=== PATIENT | female | born 1985 | race Caucasian/White ===

== ENCOUNTER 2016-09-24 09:55 | Emergency (ER) | payer SELFPAY ==
[2016-09-24 10:22] VITALS: BP 116/78
[2016-09-24] MEDS ORDERED: HYDROcodone/ACETAMIN 5-325 MG* 1 TAB PO ONE (11:22)
--- NOTE | 2016-09-24 12:06 | RAD ---
INDICATION: Blood in sputum. Dyspnea. Pain under RIGHT breast relating into posterior RIGHT side. RIGHT lower rib pain. History of tobacco use. COMPARISON: January 20, 2012 TECHNIQUE: Dual energy PA and routine lateral views of the chest were obtained. REPORT: Small region of airspace consolidation involving the anterior segment of the RIGHT upper lobe approximating the minor fissure. Negative for volume loss. Negative for pleural effusion or pneumothorax. The heart, pulmonary vasculature, and mediastinal contours are unremarkable. No rib fracture visualized. IMPRESSION: RIGHT upper lobe pneumonia.
[2016-09-24] MEDS ORDERED: Levofloxacin TAB* 500 MG PO ONE (12:33)
[2016-09-24] MEDS ORDERED: Acetaminop/Codeine 30 MG TAB* 1 TAB (300 MG/30 MG) PO ONE (12:55)
[2016-09-24] MEDS ORDERED: Benzonatate CAP* 100 MG PO ONE (12:56)
--- NOTE | 2016-09-24 13:18 | UC ---
rob Starks Timothy, scribed for Esmer Silva DO on 09/24/16 at 1103 . Respiratory Complaint HPI - HPI Summary HPI Summary: Tess Camargo is a 30 yo female presenting to [facility] with respiratory illness for 3 days, with cough made worse by recumbent position, sore throat, and chills. She states her congestion is increasing with 10/10 sharp, stabbing pain on the right side with inspiration, radiating inwards, since last night causing SOB. Since yesterday, she has started coughing up marimar blood, 3x between last night and today. The day before yesterday she had ear pain, and presented to [place] urgent care where her URI Dx was given. She has also vomited twice last night as a result of excessive coughing. Her Hx includes Hep C, and she is a smoker. - History of Current Complaint Stated Complaint: SORE THROAT COUGH UP BLOOD PAIN WHE BREATHING Time Seen by Provider: 09/24/16 10:58 Hx Obtained From: Patient Hx Last Menstrual Period: 2 weeks Onset/Duration: Gradual Onset, Lasting Days, Still Present Timing: Constant Severity Initially: Moderate Severity Currently: Moderate Pain Intensity: 10 Pain Scale Used: 0-10 Numeric Character: Cough: Nonproductive Aggravating Factors: Deep Breaths, Recumbent Position Alleviating Factors: Upright Position Associated Signs And Symptoms: Positive: Dyspnea, Pleuritic Chest Pain, Hemoptysis, URI. Negative: Fever, Chills, Wheezing, Dizziness, Edema, Nasal Congestion, Hoarseness - Allergies/Home Medications Allergies/Adverse Reactions: Allergies Allergy/AdvReac Type Severity Reaction Status Date / Time Glyburide Allergy Hives Verified 09/24/16 10:12 Metformin Allergy Hives Verified 09/24/16 10:12 Metronidazole [From Flagyl] Allergy Hives Verified 09/24/16 10:12 Nitrofurantoin Allergy Hives Verified 09/24/16 10:12 [From Macrobid] Home Medications: Home Medications DULoxetine DR CAP* [Cymbalta CAP*] 1 tab PO DAILY 09/24/16 [History Confirmed ] Gabapentin CAP(*) [Neurontin 400 mg CAP(*)] 1 tab PO BID 09/24/16 [History Confirmed 09/24/16] Yaksxegpofjsc-Uvmqforoen-Pxbft [Nyquil Severe Cold/Flu 5-6.25-10-325 mg/15Ml] 09/24/16 [History] PMH/Surg Hx/FS Hx/Imm Hx Previously Healthy: Yes - Surgical History Surgical History: Yes Surgery Procedure, Year, and Place: Appe 2009. [place] 2007 - Family History Known Family History: Positive: Hypertension, Diabetes, Other - lung cancer - Social History Occupation: Unemployed Lives: With Family Alcohol Use: None Substance Use Type: None Smoking Status (MU): Light Every Day Tobacco Smoker Cessation Counseling: Patient Advised to Stop - Immunization History Most Recent Influenza Vaccination: doesn't get Review of Systems Constitutional: Chills Skin: Negative Eyes: Negative ENT: Sore Throat, Ear Ache Respiratory: Shortness Of Breath, Cough Cardiovascular: Chest Pain - with inspiration Gastrointestinal: Vomiting Genitourinary: Negative Motor: Negative Neurovascular: Negative Musculoskeletal: Negative Neurological: Negative Psychological: Negative All Other Systems Reviewed And Are Negative: Yes Physical Exam Triage Information Reviewed: Yes Appearance: Well-Appearing, Pain Distress - moderate, Obese Vital Signs: Initial Vital Signs Temp 99.1 F 09/24/16 10:13 Pulse 91 09/24/16 10:13 Resp 19 09/24/16 10:13 BP 116/78 09/24/16 10:13 Pulse Ox 100 09/24/16 10:13 Vital Signs Reviewed: Yes Eyes: Positive: Conjunctiva Clear. Negative: Conjunctiva Inflamed ENT: Positive: Hearing grossly normal. Negative: Muffled/hoarse voice Neck: Positive: Supple, Nontender Respiratory: Positive: Chest non-tender, No respiratory distress, No accessory muscle use, Other: - tendernewss in the lower right cage, ribs 7,8,9, & 10. Negative: Normal breath sounds - difficult to appreciate due to shallowness Cardiovascular: Positive: RRR, No Murmur, Other: Musculoskeletal Exam: Normal Neurological: Positive: Alert, Muscle Tone Normal Psychological Exam: Normal Psychological: Positive: Age Appropriate Behavior Skin Exam: Normal UC Diagnostic Evaluation - Laboratory O2 Sat by Pulse Oximetry: 100 - Radiology Xray Interpretation: Positive (See Comments) - IMPRESSION: RIGHT upper lobe pneumonia. Radiology Interpretation Completed By: Radiologist Re-Evaluation - Re-Evaluation First Eval Re-Evaluation Time: 12:18 Change: Improved Comment: Pt is feeling much improved. She was informed of XR results. Respiratory Course/Dx - Course Course Of Treatment: Tess Camargo is a 30 yo female presenting to [facility] coughing up blood with respiratory illness for the past 3 days. Her CXR showed right upper lobe pneumonia. She will be discharged appropriately. - Differential Dx/Diagnosis Differential Diagnosis/HQI/PQRI: Lower Resp Infection, Pneumothorax, Other - rib injury Provider Diagnoses: right upper lobe pneumonia, rib injury Discharge - Discharge Plan Condition: Stable Disposition: HOME Prescriptions: Albuterol HFA INHALER* [Ventolin HFA Inhaler*] 2 puff INH Q4H PRN #1 mdi PRN Reason: Sob/Wheezing Benzonatate CAP* [Tessalon CAP*] 100 mg PO TID #30 cap Levofloxacin TAB* [Levaquin TAB*] 500 mg PO DAILY #6 tab guaiFENesin/CODIEN 100MG-10MG* [Robitussin AC 100Mg-10Mg*] 5 - 10 ml PO Q4H PRN #100 udc MDD 10ml PRN Reason: Cough traMADol TAB* [Ultram*] 50 mg PO Q8H PRN #14 tab MDD 3 TABS PRN Reason: Pain Patient Education Materials: Pneumonia (ED), Rib Contusion (ED) Referrals: No Primary Care Phys,NOPCP [Primary Care Provider] - [facility] [Outside] Additional Instructions: INHALED BRONCHODILATORS: You have received a prescription for an inhaled bronchodilator -- a medication which stimulates the airways in the lung to dilate. This improves the flow of air in asthma, bronchitis, and emphysema. These medicines have some similarity to adrenaline, and can cause similar side effects: shakiness, racing heart, and a sense of nervousness. These side effects decrease with time. Contact your doctor if these side effects are severe. Do not over-use the medicine. Too-frequent use of the inhaler may make it ineffective. Call your doctor if the inhaler is not controlling your symptoms at the prescribed doses. COUGH-SUPPRESSANT & EXPECTORANT MEDICATION:DO NOT TAKE AT THE SAME TIME THE ULTRAM You are to use a cough medication as needed for relief of symptoms. This medicine is a combination of an expectorant (to make the mucous thinner and more easily "coughed up") and a cough suppressant (to reduce the frequency of coughing). The cough-suppressant medicine is related to narcotics. You may experience mild nausea and sleepiness. Some patients who are very sensitive to narcotics may have stomach pain from this medicine. Taking the medicine with food reduces these side effects. Do not drive or work with machinery until you know how this medicine affects you. The expectorant should have no side effects. Iodine-containing expectorants (such as organidin) should not be taken by persons with active thyroid disease unless approved by your doctor. Call the doctor if you develop shortness of breath, hives, rash, itching, lightheadedness, or severe nausea and vomiting. TESSALON PERLES: You have received a prescription for Tessalon Perles (benzonatate). This is a non-narcotic medicine for relief of cough. It usually works in about 15- 20 minutes and lasts around four hours. Tessalon Perles should be swallowed. They should not be chewed or dissolved in the mouth (this can produce temporary numbing of the mouth and choking can occur). If you develop any adverse effects such as wheezing, shortness of breath, hives, rash, itching, or lightheadedness, please return at once. Levofloxacin: You've been given an antibiotic of the quinalone family, levofloxacin ( Levaquin). This medicine is not related to the penicillins, sulfas, cephalosporins, or tetracyclines. It is often given to patients who are allergic to these drugs. It has been chosen for you either because other drugs are not appropriate, or because of the nature of your problem. Levofloxacin should not be taken with antacids, as these can decrease its effectiveness. It can be taken without regard to meals, but you should avoid taking dairy products (milk, cheese, yogurt) within two hours of the levofloxacin. LEVOFLOXACIN SHOULD NOT BE TAKEN BY CHILDREN, NURSING WOMEN, OR WOMEN. Although levofloxacin is usually well-tolerated, common side effects can include nausea and diarrhea. Contact your doctor if you experience any unusual symptoms while on this medication, such as joint pain or swelling, shortness of breath, wheezing, faintness, or hives. Please follow up with a primary care physician regarding your pneumonia and visit to urgent care today. Return to urgent care or the emergency department with any new or recurring symptoms. ANY TIME YOU TAKE AN ANTIBIOTIC, IT IS IMPORTANT TO REPLENISH THE BODY'S BALANCE OF "GOOD" BACTERIA BY EATING HIGH QUALITY CULTURED FOOD SUCH YOGURT, SAURKRAUT OR APPLE CHI AND/OR TAKING A PROBIOTIC SUPPLEMENT. ULTRAM (tramadol hydrochloride):FOR THE RIB PAIN. DO NOT TAKE TOGETHER WITH THE ROBITUSSIN WITH CODEINE. Ultram is an excellent drug for pain relief. It is not a narcotic, but it works in a similar way. Ultram can take up to two hours for full effect. Although not addicting, Ultram is best avoided in patients with a history of drug abuse. Ultram should not be used with alcohol, sleeping pills, or narcotics. If you're prone to seizures, Ultram can make you more likely to have a seizure. Ultram can be hazardous when combined with MAO-inhibitor antidepressants (such as Nardil or Parnate). Be sure your doctor is aware of all medicines you are taking. Persons with severe liver or kidney disease should increase the time between doses of Ultram. Discuss this with your doctor if you're uncertain. Side effects of Ultram can include dizziness, nausea, constipation, sleepiness, and itching. (These side effects are also seen with narcotic pain medicines.) Please call your doctor if you have other disturbing effects. This medication can increase your risk of serotonin syndrome when taken in combination with your antidepressants. This, however, is a rare side effect and these medicines are often prescribed together. That said, if you experience any agitation, increased reflexes, tremors, sweating, dilated pupils, diarrhea, or increased body temperature, you should stop this medication and be evaluated by a healthcare provider right away. FOLLOW-UP CARE: You should establish with a private physician for follow-up care in 2 days. If you are unable to get a timely appointment, or if you are worsening, call us or return for re-evaluation. An additional resource available to assist in finding the appropriate physician for your health care needs is the [facility]ician Referral Center. You may contact them by calling [phone]. Follow up in 2 days for re-evaluation. This follow up visit is important, we want to know that you are improving. If you can not get in with your PCP, return here for re-evaluation. The documentation as recorded by the rob rocha Timothy accurately reflects the service I personally performed and the decisions made by me, Esmer Silva DO.
[2016-09-24] MEDS ORDERED: Acetaminop/Codeine 30 MG TAB* 1 TAB (300 MG/30 MG) ONE (13:37)
== END 2016-09-24 13:10 | disposition home or self-care (01) ==
LOC: MERGE 09:55 → UCEAST 09:55
DX: J18.9 Pneumonia, unspecified organism (principal); S29.9XXA Unspecified injury of thorax, initial encounter; X50.3XXA Overexertion from repetitive movements, initial encounter; Y93.9 Activity, unspecified; Y92.9 Unspecified place or not applicable; R07.81 Pleurodynia; R04.2 Hemoptysis; Z90.49 Acquired absence of other specified parts of digestive tract; Z88.1 Allergy status to other antibiotic agents; Z88.8 Allergy status to other drugs, medicaments and biological substances; F17.210 Nicotine dependence, cigarettes, uncomplicated
CPT/HCPCS: 71020; 99203; A9270-GY; G0463

== ENCOUNTER 2016-09-25 20:30 | Emergency (ER) | payer SELFPAY ==
[2016-09-25] MEDS ORDERED: Albuterol HFA INHALER* 8 gm MDI INH ONE (21:11)
[2016-09-25] MEDS ORDERED: Clarithromycin TAB* 500 MG PO ONE (21:11)
[2016-09-25] MEDS ORDERED: guaiFENesin/CODIEN 100MG-10MG* 5 ML UDC PO ONE (21:17)
[2016-09-25] MEDS ORDERED: traMADol TAB* 50 MG PO ONE (22:00)
[2016-09-25 22:42] VITALS: BP 135/61
--- NOTE | 2016-09-27 00:40 | ED ---
Douglas Starks Matthew, scribed for Jerson Rizo MD on 09/25/16 at 2143 . Respiratory - HPI Summary HPI Summary: A 30 y/o female presents to the ED with SOB since 4 days ago. The patient was seen yesterday at urgent care and Dx with pneumonia and bruised ribs. At that time, she was prescribed Abx. However, she was unable to fill the medications, because she couldn't no afford them. The patient states that she continues to have pain rated 8/10 in severity and hemoptysis. She will be getting insurance this week. Associated symptoms include cough, sore throat, and chills. She's also having right sided rib pain. - History of Current Complaint Stated Complaint: SOB Hx Obtained From: Patient Onset/Duration: Gradual Onset, Lasting Days, Still Present Timing: Constant Initial Severity: Moderate Current Severity: Moderate Pain Intensity: 8 Character: Cough (Productive) Associated Signs and Symptoms: SOB, Chills, Hemoptysis - Allergy/Home Medications Allergies/Adverse Reactions: Allergies Allergy/AdvReac Type Severity Reaction Status Date / Time Nitrofurantoin Allergy Severe Tingling Verified 03/03/16 17:02 [From Macrobid] Metronidazole [From Flagyl] Allergy Intermediate Tingling Verified 03/03/16 17: 02 Glyburide Allergy Hives Verified 03/03/16 17:02 Metformin Allergy Hives/Diff. Verified 03/03/16 17:02 Breathing/I tching PMH/Surg Hx/FS Hx/Imm Hx Endocrine/Hematology History: Reports: Hx Diabetes - gestational diabetes Cardiovascular History: Denies: Hx Hypertension Respiratory History: Denies: Hx Asthma - Surgical History Surgery Procedure, Year, and Place: appy. azar. right hand sx for cellulitis Infectious Disease History: Yes Infectious Disease History: Denies: Hx Clostridium Difficile, Hx Hepatitis, Hx Human Immunodeficiency Virus (HIV), Hx of Known/Suspected MRSA, Hx Shingles, Hx Tuberculosis, Hx Known/ Suspected VRE, Hx Known/Suspected VRSA, History Other Infectious Disease, Traveled Outside the [place] in Last 30 Days - Family History Known Family History: Positive: Cardiac Disease, Hypertension, Diabetes, Other - lung cancer Negative: Respiratory Disease - Social History Alcohol Use: Occasionally Substance Use Type: Reports: None, Heroin, Other Substance Use Comment - Amount & Last Used: injected heroin & meth APPROX 1 mo. ago Smoking Status (MU): Never Smoked Tobacco Review of Systems Constitutional: Negative Eyes: Negative Positive: Sore Throat Cardiovascular: Negative Positive: Shortness Of Breath, Cough, Other - Hemoptysis Gastrointestinal: Negative Genitourinary: Negative Positive: Myalgia - right sided rib pain Skin: Negative Neurological: Negative Psychological: Normal All Other Systems Reviewed And Are Negative: Yes Physical Exam Triage Information Reviewed: Yes Vital Signs On Initial Exam: Initial Vitals Temp Pulse Resp BP Pulse Ox 99.7 F 95 20 140/70 97 09/25/16 21:03 09/25/16 21:03 09/25/16 21:03 09/25/16 21:03 09/25/16 21:03 Vital Signs Reviewed: Yes Appearance: Positive: Well-Appearing, No Pain Distress, Obese Skin: Positive: Warm, Skin Color Reflects Adequate Perfusion, Dry Eyes: Positive: EOMI, NOHEMI ENT: Positive: Normal ENT inspection Neck: Positive: Supple, Nontender Respiratory/Lung Sounds: Positive: Clear to Auscultation, Breath Sounds Present. Negative: Wheezes Cardiovascular: Positive: RRR Abdomen Description: Positive: Nontender, Soft Bowel Sounds: Positive: Present Musculoskeletal: Positive: Normal, Strength/ROM Intact Neurological: Positive: Normal, Sensory/Motor Intact, Alert, Oriented to Person Place, Time Psychiatric: Positive: Normal, Affect/Mood Appropriate Diagnostics - Vital Signs Vital Signs Temp Pulse Resp BP Pulse Ox 09/25/16 21:03 99.7 F 95 20 140/70 97 - Laboratory Lab Statement: Any lab studies that have been ordered have been reviewed, and results considered in the medical decision making process. Disposition - Course Course Of Treatment: Ms. Orly Camargo was unable to fill her prescriptions today as she has no money or insurance. I switched her antibiotics to a Z-pck and was then able to cover all of her previously prescribed medication except tessalon with [facility]. - Diagnoses Provider Diagnoses: Medication management Discharge - Discharge Plan Condition: Good Disposition: HOME Prescriptions: Azithromyxin CHAN (NF) [Z-Chan (Zithromax) 250 mg tabs #6] 2 tab PO .TODAY, THEN 1 DAILY #6 tab guaiFENesin/CODIEN 100MG-10MG* [Robitussin AC 100Mg-10Mg*] 5 ml PO Q4H PRN #100 udc MDD 25 PRN Reason: Cough traMADol TAB* [Ultram*] 50 mg PO Q8H PRN #14 tab MDD 3 PRN Reason: Cough Patient Education Materials: Pneumonia (ED) Referrals: [facility] [place] [facility] [Outside] - 2 Days No Primary Care Phys,NOPCP [Primary Care Provider] - Additional Instructions: Please follow-up with a primary care physician in 2 days. The documentation as recorded by the Douglas rocha Matthew accurately reflects the service I personally performed and the decisions made by me, Jerson Rizo MD.
== END 2016-09-25 22:42 | disposition home or self-care (01) ==
LOC: ED 20:30
DX: J18.9 Pneumonia, unspecified organism (principal); R07.81 Pleurodynia
CPT/HCPCS: 99283; A9270-GY

== ENCOUNTER 2017-07-17 11:17 | Emergency (ER) | payer OTHER ==
[2017-07-17] MEDS ORDERED: NS 0.9% 1000 ML* 1,000 ML IV ONE (11:59)
[2017-07-17 13:12] LABS: Hematocrit 33 % (35-47); Hemoglobin 11.6 g/dl (12.0-16.0); Mean Corpuscular HGB Conc 35 g/dl (31-36); Mean Corpuscular Hemoglobin 31 pg (27-31); Mean Corpuscular Volume 89 fL (80-97); Mean Platelet Volume 8 um3 (7.4-10.4); Red Blood Count 3.74 10^6/ul (4.0-5.4); Red Cell Distribution Width 14 % (10.5-15); White Blood Count 6.9 10^3/ul (3.5-10.8)
[2017-07-17 13:29] LABS: Urine Bacteria Absent (Absent); Urine Bilirubin Negative (Negative); Urine Glucose Negative (Negative); Urine Nitrite Negative (Negative)
[2017-07-17 13:29] LABS: Albumin 3.6 g/dL (3.2-5.2); BUN/Creatinine Ratio 15.6 (8-20); C Reactive Protein 27.88 mg/L (< 5.00); Calcium 9.3 mg/dL (8.6-10.3); EGFR African American 140.1 (>60); Globulin 3.1 g/dL (2-4); Potassium 3.4 mmol/L (3.5-5.0); Total Bilirubin 0.5 mg/dL (0.2-1.0); Total Protein 6.7 g/dL (6.4-8.9)
--- NOTE | 2017-07-17 14:21 | RAD ---
Indication: Abdominal pain. Real-time sonography of the was performed. There is a single intrauterine gestation in variable presentation. There is a fundal placenta without evidence of placenta previa. heart activity is noted at 160 bpm. Amniotic fluid is within normal limits. The cervix is unremarkable. The BPD measures 2.4 cm corresponding to gestational age of 14 weeks 1 day. Head circumference measures 9.4 cm corresponding to gestational age of 14 weeks 3 days. Abdominal circumference measures 8.4 cm corresponding to gestational age of 40 weeks 6 days. Femur length measures 1.8 cm corresponding to gestational age of 15 weeks 2 days. Estimated gestational age is 14 weeks 5 days. Estimated date of delivery is January 10, 2018. IMPRESSION: Single intrauterine gestation with a gestational age of 14 weeks 5 days. This is determined by today's initial ultrasound. Estimated date of delivery is January 10, 2018. heart activity is noted. Amniotic fluid is within normal limits.
--- NOTE | 2017-07-17 14:55 | ED ---
Gelacio Starks Gabriel scribed for Temi Card MD on 07/17/17 at 1233 . Complex/Multi-Sys Presentation - HPI Summary HPI Summary: This patient is a 31 year old F currently 14 weeks with a G/P/A history of . presenting to [facility] accompanied by boyfriend with a chief complaint of hematemesis with dark blood since 4 days prior. She has only had blood in her vomit twice and has been vomiting 15 times a day. The patient rates the pain 9/10 in severity. Symptoms aggravated by PO intake. Symptoms alleviated by nothing. Patient reports nausea, CP beginning last night, and ABD pain. Patient denies diarrhea, dysuria, and melena. Pt states she is unable to drink water due to nausea. Patient believes the nausea and vomiting is due to recent use of Subutex, oral tablets. - History Of Current Complaint Chief Complaint: EDNauseaVomitDiarrh Time Seen by Provider: 07/17/17 11:50 Hx Obtained From: Patient Onset/Duration: Lasting Days - 4, Still Present Timing: Constant Aggravating Factor(s): PO intake Alleviating Factor(s): nothing Associated Signs And Symptoms: Positive: Other - nausea, CP beginning last night , and ABD pain.. Negative: Diarrhea, Dysuria, Melena - Allergies/Home Medications Allergies/Adverse Reactions: Allergies Allergy/AdvReac Type Severity Reaction Status Date / Time Nitrofurantoin Allergy Severe Tingling Verified 03/03/16 17:02 [From Macrobid] Metronidazole [From Flagyl] Allergy Intermediate Tingling Verified 03/03/16 17: 02 Glyburide Allergy Hives Verified 03/03/16 17:02 Metformin Allergy Hives/Diff. Verified 03/03/16 17:02 Breathing/I tching PMH/Surg Hx/FS Hx/Imm Hx Previously Healthy: No Endocrine/Hematology History: Reports: Hx Diabetes - gestational diabetes Cardiovascular History: Denies: Hx Hypertension Respiratory History: Denies: Hx Asthma - Surgical History Surgery Procedure, Year, and Place: app[facility]. [facility]. right hand sx for cellulitis Infectious Disease History: No Infectious Disease History: Denies: Hx Clostridium Difficile, Hx Hepatitis, Hx Human Immunodeficiency Virus (HIV), Hx of Known/Suspected MRSA, Hx Shingles, Hx Tuberculosis, Hx Known/ Suspected VRE, Hx Known/Suspected VRSA, History Other Infectious Disease, Traveled Outside the [place] in Last 30 Days - Family History Known Family History: Positive: Cardiac Disease, Hypertension, Diabetes, Other - lung cancer Negative: Respiratory Disease - Social History Alcohol Use: None Hx Substance Use: Yes Substance Use Type: Reports: Heroin, Prescribed Substance Use Comment - Amount & Last Used: On subutex Smoking Status (MU): Never Smoked Tobacco Review of Systems Positive: Chest Pain Gastrointestinal: Negative - melena Positive: Abdominal Pain, Vomiting - with blood, Nausea. Negative: Diarrhea Negative: dysuria All Other Systems Reviewed And Are Negative: Yes Physical Exam - Summary Physical Exam Summary: General: Well appearing, no pain distress Skin: Warm, Skin Color Reflects Adequate Perfusion, Dry Eyes: EOMI, NOHEMI ENT: Pharynx normal, TMs normal Neck: Supple, nontender Respiratory: CTA, breath sounds present, no rhonchi, no wheezes, no rales Cardiovascular: RRR, no rub, no gallop, murmur present Abdomen: Soft, nontender, Non-distended, no guarding, no rebound Bowel: Present Musculoskeletal: KRISTEN, No edema Neuro: Sensory/motor intact, A&Ox3, CN intact 2-12 Psych: Affect/mood appropriate Triage Information Reviewed: Yes Vital Signs On Initial Exam: Initial Vitals Temp Pulse Resp BP Pulse Ox 97.7 F 88 17 120/74 98 07/17/17 11:36 07/17/17 11:36 07/17/17 11:36 07/17/17 11:36 07/17/17 11:36 Vital Signs Reviewed: Yes - [place] Coma Scale Coma Scale Total: 15 Diagnostics - Vital Signs Vital Signs Temp Pulse Resp BP Pulse Ox 07/17/17 11:36 97.7 F 88 17 120/74 98 - Laboratory Lab Results: Lab Results 07/17/17 07/17/17 07/17/17 Range/Units 12:50 13:00 13:00 WBC 6.9 (3.5-10.8) 10^3/ul RBC 3.74 L (4.0-5.4) 10^6/ul Hgb 11.6 L (12.0-16.0) g/dl Hct 33 L (35-47) % MCV 89 (80-97) fL MCH 31 (27-31) pg MCHC 35 (31-36) g/dl RDW 14 (10.5-15) % Plt Count 271 (150-450) 10^3/ul MPV 8 (7.4-10.4) um3 Neut % (Auto) 54.6 (38-83) % Lymph % (Auto) 33.8 (25-47) % [place] % (Auto) 9.9 H (1-9) % Eos % (Auto) 0.9 (0-6) % Baso % (Auto) 0.8 (0-2) % Absolute Neuts (auto) 3.8 (1.5-7.7) 10^3/ul Absolute Lymphs (auto) 2.3 (1.0-4.8) 10^3/ul Absolute Monos (auto) 0.7 (0-0.8) 10^3/ul Absolute Eos (auto) 0.1 (0-0.6) 10^3/ul Absolute Basos (auto) 0.1 (0-0.2) 10^3/ul Absolute Nucleated RBC 0 10^3/ul Nucleated RBC % 0 Sodium 136 (133-145) mmol/L Potassium 3.4 L (3.5-5.0) mmol/L Chloride 103 (101-111) mmol/L Carbon Dioxide 26 (22-32) mmol/L Anion Gap 7 (2-11) mmol/L BUN 10 (6-24) mg/dL Creatinine 0.64 (0.51-0.95) mg/dL Est GFR ( Amer) 140.1 (>60) Est GFR (Non-Af Amer) 109.0 (>60) BUN/Creatinine Ratio 15.6 (8-20) Glucose 99 (70-100) mg/dL Lactic Acid (0.5-2.0) mmol/L Calcium 9.3 (8.6-10.3) mg/dL Total Bilirubin 0.50 (0.2-1.0) mg/dL AST 16 (13-39) U/L ALT 20 (7-52) U/L Alkaline Phosphatase 34 (34-104) U/L C-Reactive Protein 27.88 H (< 5.00) mg/L Total Protein 6.7 (6.4-8.9) g/dL Albumin 3.6 (3.2-5.2) g/dL Globulin 3.1 (2-4) g/dL Albumin/Globulin Ratio 1.2 (1-3) Lipase 15 (11.0-82.0) U/L Urine Color [place] Urine Appearance Cloudy Urine pH 5.0 (5-9) Ur Specific [place] 1.032 H (1.010-1.030) Urine Protein 1+(30 mg/dl) H (Negative) Urine Ketones Trace H (Negative) Urine Blood Negative (Negative) Urine Nitrate Negative (Negative) Urine Bilirubin Negative (Negative) Urine Urobilinogen Negative (Negative) Ur Leukocyte Esterase Negative (Negative) Urine WBC (Auto) Trace(0-5/hpf) (Absent) Urine RBC (Auto) 3+(>10/hpf) H (Absent) Ur Squamous Epith Cells Present H (Absent) Urine Bacteria Absent (Absent) Urine Glucose Negative (Negative) 07/17/17 Range/Units 13:00 WBC (3.5-10.8) 10^3/ul RBC (4.0-5.4) 10^6/ul Hgb (12.0-16.0) g/dl Hct (35-47) % MCV (80-97) fL MCH (27-31) pg MCHC (31-36) g/dl RDW (10.5-15) % Plt Count (150-450) 10^3/ul MPV (7.4-10.4) um3 Neut % (Auto) (38-83) % Lymph % (Auto) (25-47) % [place] % (Auto) (1-9) % Eos % (Auto) (0-6) % Baso % (Auto) (0-2) % Absolute Neuts (auto) (1.5-7.7) 10^3/ul Absolute Lymphs (auto) (1.0-4.8) 10^3/ul Absolute Monos (auto) (0-0.8) 10^3/ul Absolute Eos (auto) (0-0.6) 10^3/ul Absolute Basos (auto) (0-0.2) 10^3/ul Absolute Nucleated RBC 10^3/ul Nucleated RBC % Sodium (133-145) mmol/L Potassium (3.5-5.0) mmol/L Chloride (101-111) mmol/L Carbon Dioxide (22-32) mmol/L Anion Gap (2-11) mmol/L BUN (6-24) mg/dL Creatinine (0.51-0.95) mg/dL Est GFR ( Amer) (>60) Est GFR (Non-Af Amer) (>60) BUN/Creatinine Ratio (8-20) Glucose (70-100) mg/dL Lactic Acid 1.1 (0.5-2.0) mmol/L Calcium (8.6-10.3) mg/dL Total Bilirubin (0.2-1.0) mg/dL AST (13-39) U/L ALT (7-52) U/L Alkaline Phosphatase (34-104) U/L C-Reactive Protein (< 5.00) mg/L Total Protein (6.4-8.9) g/dL Albumin (3.2-5.2) g/dL Globulin (2-4) g/dL Albumin/Globulin Ratio (1-3) Lipase (11.0-82.0) U/L Urine Color Urine Appearance Urine pH (5-9) Ur Specific [place] (1.010-1.030) Urine Protein (Negative) Urine Ketones (Negative) Urine Blood (Negative) Urine Nitrate (Negative) Urine Bilirubin (Negative) Urine Urobilinogen (Negative) Ur Leukocyte Esterase (Negative) Urine WBC (Auto) (Absent) Urine RBC (Auto) (Absent) Ur Squamous Epith Cells (Absent) Urine Bacteria (Absent) Urine Glucose (Negative) Result Diagrams: 07/17/17 13:00 07/17/17 13:00 Lab Statement: Any lab studies that have been ordered have been reviewed, and results considered in the medical decision making process. - EKG 1202 Cardiac Rate: NL EKG Rhythm: Sinus Rhythm - NSR at 77 BPM EKG Interpretation: nonspecific T wave changes EKG Comparison: Other - slight T wave flattening in comparison to EKG from 2015 - Additional Comments Diagnostic Additional Comments: US reveals, per radiologist, Single intrauterine gestation with a gestational age of 14 weeks 5 days. This is determined by today's initial ultrasound. Estimated date of delivery is January 10, 2018. heart activity is noted. Amniotic fluid is within normal limits. ED physician has reviewed this radiology report and agrees. Complex Multi-Symp Course/Dx Course Of Treatment: 31 yo female on subutex for 3 days that she isn't tolerating orally so she is injecting it. talked Isa at [address] and am changing her from 16 mg subutex to 10mcg patch pt has a known murmer and I described concern over her injection use because of the murmer and increased risk of endocarditis. Pt was unaware of this risk but did have a friend recently of endocarditis and now feels that injection is not an option. she does have some slower suprapubic discomfort but exam is very benign u/s shows a viable fetus - Diagnoses Provider Diagnoses: Hyperemesis arising during Discharge - Discharge Plan Condition: Stable Disposition: HOME Prescriptions: Buprenorphine 10 MCG PATCH(NF) [Butrans 10 MCG PATCH(NF)] 10 mcg TRANSDERM Q7D # 1 patch MDD 1 Ondansetron ODT TAB* [Zofran 4 MG Odt TAB*] 4 mg PO Q6H PRN #14 tab.odt PRN Reason: Nausea Referrals: No Primary Care Phys,NOPCP [Primary Care Provider] - The documentation as recorded by the Gelacio rocha Gabriel accurately reflects the service I personally performed and the decisions made by me, Temi Card MD.
[2017-07-17] MEDS ORDERED: Buprenorphine 10 MCG PATCH(NF) 10 MCG/HR PATCH (10 MG TOTAL) TRANSDERM SCH (15:00)
[2017-07-17] MEDS ORDERED: Ondansetron ODT TAB* 4 MG PO ONE (16:20)
[2017-07-17] MEDS ORDERED: Ondansetron ODT TAB* 4 MG ONE (16:23)
[2017-07-17 16:43] VITALS: BP 145/76
== END 2017-07-17 16:59 | disposition home or self-care (01) ==
LOC: ED 11:17
DX: O21.0 Mild hyperemesis gravidarum (principal); R07.9 Chest pain, unspecified; R11.2 Nausea with vomiting, unspecified; Z3A.14 14 weeks gestation of pregnancy
CPT/HCPCS: 36415; 76805; 80053; 81003; 81015; 83605; 83690; 85025; 86140; 87040; 93005; 99283; A9270-GY

== ENCOUNTER 2017-07-25 17:02 | Emergency (ER) | payer OTHER ==
[2017-07-25] MEDS ORDERED: NS 0.9% 1000 ML* 1,000 ML IV ONE (18:23)
[2017-07-25 18:47] LABS: Hematocrit 31 % (35-47); Hemoglobin 10.9 g/dl (12.0-16.0); Mean Corpuscular HGB Conc 35 g/dl (31-36); Mean Corpuscular Hemoglobin 31 pg (27-31); Mean Corpuscular Volume 89 fL (80-97); Mean Platelet Volume 8 um3 (7.4-10.4); Red Blood Count 3.52 10^6/ul (4.0-5.4); Red Cell Distribution Width 13 % (10.5-15); White Blood Count 6.5 10^3/ul (3.5-10.8)
[2017-07-25 19:02] LABS: Albumin 3.4 g/dL (3.2-5.2); BUN/Creatinine Ratio 12.5 (8-20); Calcium 9.3 mg/dL (8.6-10.3); EGFR African American 163.5 (>60); EGFR Non-African American 127.1 (>60); Potassium 3.6 mmol/L (3.5-5.0); Total Bilirubin 0.3 mg/dL (0.2-1.0); Total Protein 6.4 g/dL (6.4-8.9)
--- NOTE | 2017-07-25 19:59 | RAD ---
INDICATION: with recurrent pain. Normal sonogram July 15, 2017. COMPARISON: Sonogram July 17, 2017 TECHNIQUE: Real-time sector scans were performed for the purposes of evaluation. This is a limited examination. A anatomic survey was not performed due to the early age of the gestation. FINDINGS: There is a single intrauterine gestation in breech presentation. The placenta is posterior in location. There is no evidence of placenta previa or abruption. cardiac activity is documented at 167 beats per minute. There is movement. The amniotic fluid index is normal. The cervix is closed measuring 3.8 cm. A anatomic survey was not performed or requested. This can be performed at closer to 18 weeks The estimated gestational age based on biparietal diameter, head circumference, abdominal circumference, and femur length corresponds to 15 weeks 0 days, 15 weeks 0 days, 15 weeks 1 day, 15 weeks 1 day. The composite age is 15 weeks 1 day. There is normal growth. Based on the ultrasound the estimated due date is January 15, 2018 Both ovaries are identified. There are no sonographic abnormalities IMPRESSION: VIABLE INTRAUTERINE GESTATION AT 15 WEEKS 1 DAY. NO SONOGRAPHIC ABNORMALITIES ARE DETECTED.
[2017-07-25] MEDS ORDERED: RHO D Immune Globulin (HUMAN)* 300 MCG = 1,500 I.U. INJ IM ONE (20:00)
[2017-07-25 21:08] LABS: Urine Bilirubin Negative (Negative); Urine Glucose Negative (Negative); Urine Nitrite Negative (Negative)
[2017-07-25 21:13] VITALS: BP 125/58
== END 2017-07-25 21:12 | disposition home or self-care (01) ==
LOC: ED 17:02
DX: O36.62X0 Maternal care for excessive fetal growth, second trimester, not applicable or unspecified (principal); Z3A.14 14 weeks gestation of pregnancy
CPT/HCPCS: 36415; 76805; 80053; 81003; 84702; 85025; 85610; 85730; 86850; 86900; 86901; 96372; 99282; J2790

== ENCOUNTER 2017-08-15 03:04 | Emergency (ER) | payer OTHER ==
[2017-08-15 04:15] LABS: ABS Basophils 0 10^3/ul (0-0.2); ABS Eosinophils 0.1 10^3/ul (0-0.6); ABS Lymphocytes 2.4 10^3/ul (1.0-4.8); ABS Monocytes 0.5 10^3/ul (0-0.8); ABS Neutrophils 5.8 10^3/ul (1.5-7.7); ABS Nucleated RBC 0 10^3/ul; Eosinophil % 0.8 % (0-6); Hematocrit 30 % (35-47); Hemoglobin 10.8 g/dl (12.0-16.0); Lymphocyte % 27.6 % (25-47); Mean Corpuscular HGB Conc 36 g/dl (31-36); Mean Corpuscular Hemoglobin 31 pg (27-31); Mean Corpuscular Volume 87 fL (80-97); Mean Platelet Volume 8 um3 (7.4-10.4); Nucleated Red Blood Cells % 0; Platelet Count 241 10^3/ul (150-450); Red Blood Count 3.48 10^6/ul (4.0-5.4); Red Cell Distribution Width 12 % (10.5-15); White Blood Count 8.7 10^3/ul (3.5-10.8)
[2017-08-15 04:25] LABS: Urine Appearance Cloudy; Urine Blood Negative (Negative); Urine Color Yellow; Urine Ketones Negative (Negative); Urine Protein Negative (Negative); Urine Specific Gravity 1.023 (1.010-1.030); Urine Urobilinogen Negative (Negative)
[2017-08-15 04:42] LABS: EGFR Non-African American 138.5 (>60)
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
[2017-08-15 06:08] VITALS: BP 124/61
--- NOTE | 2017-08-15 08:16 | RAD ---
HISTORY: , fall, pain. The gestational age by previous ultrasound is: 17 weeks, 3 days COMPARISONS: July 25, 2017, July 17, 2017 TECHNIQUE: Multiple transverse and longitudinal ultrasound images were obtained of the gravid uterus using Grayscale, color Doppler, and M-mode Doppler imaging. FINDINGS: /PLACENTAL EVALUATION: Number of fetuses: Single Presentation: Breech cardiac activity: 144 bpm Gross motion: Observed Placenta position: Posterior Amniotic fluid volume: Normal. There are no retroplacental fluid collections. BIOMETRY: Biparietal diameter: 3.88 cm 17 weeks, 6 days Head circumference: 14.18 cm 17 weeks, 4 days Abdominal circumference: 11.69 cm 17 weeks, 4 days Femur length: 2.73 cm 18 weeks 3 days HC/AC: 1.21 Estimated weight: 212 grams, +/- 31 grams GESTATIONAL AGE: The composite gestational age is: 17 weeks, 6 days. The TREY is: January 17, 2018.. This is concordant with the age by dates and previous ultrasound. ANATOMY: anatomy evaluation was not performed as part of this examination. CERVIX: The cervix is long and closed, without funneling.. The cervix measures 3.5 cm. OTHER: None IMPRESSION: SINGLE LIVE INTRAUTERINE GESTATION AT 17 WEEKS, 6 DAYS BY COMPOSITE GESTATIONAL AGE.
== END 2017-08-15 06:07 | disposition home or self-care (01) ==
LOC: ED 03:04
DX: O26.892 Other specified pregnancy related conditions, second trimester (principal); Z3A.17 17 weeks gestation of pregnancy; R10.9 Unspecified abdominal pain; O24.419 Gestational diabetes mellitus in pregnancy, unspecified control; W10.9XXA Fall (on) (from) unspecified stairs and steps, initial encounter; Y92.9 Unspecified place or not applicable; O9A.312 Physical abuse complicating pregnancy, second trimester; Z79.84 Long term (current) use of oral hypoglycemic drugs
CPT/HCPCS: 36415; 76815; 80053; 81003; 81015; 83690; 84702; 85025; 86850; 86870; 86880; 86900; 86901; 87086; 99283

== ENCOUNTER 2017-08-27 12:30 | Emergency (ER) | payer OTHER ==
[2017-08-27] MEDS ORDERED: Ondansetron INJ* 2 MG/ML VIAL IV ONE (14:54)
[2017-08-27] MEDS ORDERED: NS 0.9% 1000 ML* 1,000 ML IV ONE (14:54)
[2017-08-27 15:20] LABS: ABS Basophils 0 10^3/ul (0-0.2); ABS Eosinophils 0 10^3/ul (0-0.6); ABS Lymphocytes 2.1 10^3/ul (1.0-4.8); ABS Monocytes 0.3 10^3/ul (0-0.8); ABS Neutrophils 4.2 10^3/ul (1.5-7.7); ABS Nucleated RBC 0 10^3/ul; Eosinophil % 0.4 % (0-6); Hematocrit 30 % (35-47); Hemoglobin 10.5 g/dl (12.0-16.0); Lymphocyte % 31.2 % (25-47); Mean Corpuscular HGB Conc 35 g/dl (31-36); Mean Corpuscular Hemoglobin 30 pg (27-31); Mean Corpuscular Volume 87 fL (80-97); Mean Platelet Volume 8 um3 (7.4-10.4); Nucleated Red Blood Cells % 0; Platelet Count 270 10^3/ul (150-450); Red Blood Count 3.47 10^6/ul (4.0-5.4); Red Cell Distribution Width 12 % (10.5-15); White Blood Count 6.7 10^3/ul (3.5-10.8)
[2017-08-27 15:54] LABS: EGFR Non-African American 132.6 (>60)
[2017-08-27 17:33] LABS: Urine Appearance Cloudy; Urine Blood Negative (Negative); Urine Color Amber; Urine Ketones 1+ (Negative); Urine Protein Negative (Negative); Urine Specific Gravity 1.018 (1.010-1.030); Urine Urobilinogen Positive (Negative)
--- NOTE | 2017-08-27 18:17 | RAD ---
Indication: Abdominal pain. 19 weeks 3 days gestation based on July 17, 2017 ultrasound. Comparison: August 15, 2017 through July 17, 2017 ultrasound exams. Technique: Transabdominal obstetrical ultrasound. REPORT: Single intrauterine fetus is in breech presentation. Spontaneous motion and cardiac activity present. heart rate: 155 bpm. The volume of amniotic fluid is qualitatively normal. The cervical length is 4.5 cm. Unremarkable posterior placenta. Negative for placenta previa. Mean BPD: 4.3 cm corresponding to 19 weeks 4 days Mean HC: 17.2 cm corresponding to 19 weeks 6 days Mean AC: 12.9 cm corresponding to 18 weeks 3 days Mean FL: 2.9 cm corresponding to 19 weeks 0 days Composite gestational age: 19 weeks 2 days weight: 257 g. +/- 38 g. Unremarkable four-chamber heart documented on static and cine loop images. Full anatomic survey not performed. IMPRESSION: Viable-appearing single 10 intrauterine gestation with normal movement and cardiac activity with appropriate interval growth. Negative for placenta previa. Qualitatively normal amniotic fluid volume. Unremarkable posterior placenta. Closed cervix.
--- NOTE | 2017-08-27 18:44 | ED ---
Cyril Starks Angela, scribed for Afsaneh Deshpande MD on 08/27/17 at 1515 . - HPI Summary HPI Summary: This pt is a 31 y/o female, currently 19 weeks , presenting to [facility] c/o nausea, vomiting, abd cramping for the past 3 days. She additionally notes vaginal bleeding intermittently for the past 3 days, lightheadedness, dizziness. Pt reports she ran out of Zofran. She notes not being able to eat or drink without vomiting. The last time she had a meal was 3 days ago. She notes some rhinorrhea, lower back pain, bloody stool (2 weeks ago). Denies ear ache, neck pain, chest pain, SOB, swelling in LE. Pt has a hx of addiction, clean for almost 9 months. Relapsed 4 weeks ago. PMHx of gestational diabetes. - History of Current Complaint Chief Complaint: EDGeneral Stated Complaint: 19 WKS/VOMITING/ABD PAIN Time Seen by Provider: 08/27/17 14:51 Hx Obtained From: Patient Onset/Duration: Started Days Ago, Still Present Timing: Lasting Days Current Severity: Mild Pain Intensity: 2 Location of Pain: Suprapubic Character: Cramping Associated Signs and Symptoms: Positive: Nausea, Vaginal Bleeding or Discharge - bleeding, Vomiting. Negative: Fever - Assessment Hx Now: No - Additional Pertinent History Maternal Blood Type and Rh: O Negative - Allergies/Home Medications Allergies/Adverse Reactions: Allergies Allergy/AdvReac Type Severity Reaction Status Date / Time Nitrofurantoin Allergy Severe Tingling Verified 08/27/17 12:52 [From Macrobid] Metronidazole [From Flagyl] Allergy Intermediate Tingling Verified 08/27/17 12: 52 Glyburide Allergy Hives Verified 08/27/17 12:52 Metformin Allergy Hives/Diff. Verified 08/27/17 12:52 Breathing/I tching PMH/Surg Hx/FS Hx/Imm Hx Endocrine/Hematology History: Reports: Hx Diabetes - gestational diabetes Cardiovascular History: Denies: Hx Hypertension Respiratory History: Denies: Hx Asthma - Surgical History Surgery Procedure, Year, and Place: appy. azar. right hand sx for cellulitis Infectious Disease History: No Infectious Disease History: Denies: Hx Clostridium Difficile, Hx Hepatitis, Hx Human Immunodeficiency Virus (HIV), Hx of Known/Suspected MRSA, Hx Shingles, Hx Tuberculosis, Hx Known/ Suspected VRE, Hx Known/Suspected VRSA, History Other Infectious Disease, Traveled Outside the [place] in Last 30 Days - Family History Known Family History: Positive: Cardiac Disease, Hypertension, Diabetes, Other - lung cancer Negative: Respiratory Disease - Social History Alcohol Use: None Hx Substance Use: Yes Substance Use Type: Reports: Heroin, Prescribed Substance Use Comment - Amount & Last Used: On subutex Smoking Status (MU): Never Smoked Tobacco Review of Systems Negative: Fever Negative: Blurred Vision, Diplopia Positive: Nasal Discharge - rhinorrhea. Negative: Sore Throat, Ear Ache Negative: Chest Pain Negative: Shortness Of Breath Positive: Abdominal Pain - cramping, Vomiting, Nausea Genitourinary: Other - vaginal bleeding Musculoskeletal: Other - lower back pain Negative: Edema Neurological: Other - lightheaded, dizzy All Other Systems Reviewed And Are Negative: No Physical Exam - Summary Physical Exam Summary: Appearance: Alert, conversive, nontoxic appearing Skin: Warm, dry, no mottling, no rashes, no contusions HEENT: EOMI, PERRL, a little dry mucous membranes Neck: No masses on the neck, supple Respiratory: Clear to auscultation, breath sounds present, no rales, no rhonchi , no wheezes Cardiovascular: RRR, pulses are symmetrical in both lower and upper extremities Abdomen: Soft, Mild suprapubic tenderness. Bowel Sounds: Present Musculoskeletal: No CVA tenderness, no obvious deformity, moving all extremities in a grossly normal manner Neurological: A&Ox3, CN II-XII Intact, moving all extremities symmetrically Psychiatric: Normal affect and mood - Physical Exam Triage Information Reviewed: Yes Vital Signs Reviewed: Yes - Vaginal Assessment Presentation Comment: spec exam done to assess for bleeding only Diagnostics - Vital Signs Vital Signs Temp Pulse Resp BP Pulse Ox 08/27/17 12:48 98.2 F 74 18 114/56 98 - Laboratory Lab Results: Lab Results 08/27/17 08/27/17 08/27/17 Range/Units 15:05 15:05 16:40 WBC 6.7 (3.5-10.8) 10^3/ul RBC 3.47 L (4.0-5.4) 10^6/ul Hgb 10.5 L (12.0-16.0) g/dl Hct 30 L (35-47) % MCV 87 (80-97) fL MCH 30 (27-31) pg MCHC 35 (31-36) g/dl RDW 12 (10.5-15) % Plt Count 270 (150-450) 10^3/ul MPV 8 (7.4-10.4) um3 Neut % (Auto) 63.2 (38-83) % Lymph % (Auto) 31.2 (25-47) % Burke % (Auto) 4.9 (1-9) % Eos % (Auto) 0.4 (0-6) % Baso % (Auto) 0.3 (0-2) % Absolute Neuts (auto) 4.2 (1.5-7.7) 10^3/ul Absolute Lymphs (auto) 2.1 (1.0-4.8) 10^3/ul Absolute Monos (auto) 0.3 (0-0.8) 10^3/ul Absolute Eos (auto) 0 (0-0.6) 10^3/ul Absolute Basos (auto) 0 (0-0.2) 10^3/ul Absolute Nucleated RBC 0 10^3/ul Nucleated RBC % 0 Sodium 137 (133-145) mmol/L Potassium 3.6 (3.5-5.0) mmol/L Chloride 105 (101-111) mmol/L Carbon Dioxide 25 (22-32) mmol/L Anion Gap 7 (2-11) mmol/L BUN 7 (6-24) mg/dL Creatinine 0.54 (0.51-0.95) mg/dL Est GFR ( Amer) 170.5 (>60) Est GFR (Non-Af Amer) 132.6 (>60) BUN/Creatinine Ratio 13.0 (8-20) Glucose 78 (70-100) mg/dL Calcium 8.9 (8.6-10.3) mg/dL Total Bilirubin 0.50 (0.2-1.0) mg/dL AST 13 (13-39) U/L ALT 11 (7-52) U/L Alkaline Phosphatase 55 (34-104) U/L Total Protein 7.2 (6.4-8.9) g/dL Albumin 3.5 (3.2-5.2) g/dL Globulin 3.7 (2-4) g/dL Albumin/Globulin Ratio 0.9 L (1-3) Urine Color Adriana Urine Appearance Cloudy Urine pH 7.0 (5-9) Ur Specific [place] 1.018 (1.010-1.030) Urine Protein Negative (Negative) Urine Ketones 1+ H (Negative) Urine Blood Negative (Negative) Urine Nitrate Negative (Negative) Urine Bilirubin Negative (Negative) Urine Urobilinogen Positive H (Negative) Ur Leukocyte Esterase 1+ H (Negative) Urine WBC (Auto) 1+(6-10/hpf) H (Absent) Urine RBC (Auto) Trace(0-2/hpf) (Absent) Ur Squamous Epith Cells Present H (Absent) Urine Bacteria Absent (Absent) Urine Glucose Negative (Negative) Result Diagrams: 08/27/17 15:05 08/27/17 15:05 Lab Statement: Any lab studies that have been ordered have been reviewed, and results considered in the medical decision making process. - Ultrasound No standard instances Ultrasound Interpretation: Positive (See Comments) - US IMPRESSION: Viable -appearing single 10 intrauterine gestation with normal movement and cardiac activity with appropriate interval growth. Negative for placenta previa. Qualitatively normal amniotic fluid volume. Unremarkable posterior placenta. Closed cervix. Dr. Deshpande has reviewed this radiology report. Ultrasound Interpretation Completed By: Radiologist Course/Dx - Course Course Of Treatment: This pt is a 31 y/o female, currently 19 weeks , presenting to [facility] c/o nausea, vomiting, abd cramping for the past 3 days. She additionally notes vaginal bleeding intermittently for the past 3 days , lightheadedness, dizziness. Pt reports she ran out of [employer]. She notes not being able to eat or drink without vomiting. The last time she had a meal was 3 days ago. She notes some rhinorrhea, lower back pain, bloody stool (2 weeks ago) . Denies ear ache, neck pain, chest pain, SOB, swelling in LE. US shows Viable- appearing single 10 intrauterine gestation with normal movement and cardiac activity with appropriate interval growth. Negative for placenta previa. Qualitatively normal amniotic fluid volume. Unremarkable posterior placenta. Closed cervix. UA shows a UTI. Pt will be discharged to home with Keflex and Reglan. She is advised to follow up with her OB. - Diagnoses Provider Diagnoses: Dehydration, Vomiting, , UTI (urinary tract infection) Discharge - Discharge Plan Condition: Stable Disposition: HOME Prescriptions: Cephalexin CAP* [Keflex CAP*] 500 mg PO TID 7 Days #21 cap Metoclopramide HCl [Reglan] 10 mg PO TID #20 tab MDD 3 Patient Education Materials: Nausea and Vomiting in (ED), Urinary Tract Infection in Women (ED) Referrals: No Primary Care Phys,NOPCP [Primary Care Provider] - Additional Instructions: Follow up with your OB doctor. return if worse or any new symptoms. Take the reglan for nausea. take the keflex for your bladder infection. stay well hydrated. drink plenty of water. The documentation as recorded by the Cyril rocha Angela accurately reflects the service I personally performed and the decisions made by , Afsaneh Deshpande MD.
[2017-08-27] MEDS ORDERED: Ondansetron ODT TAB* 4 MG SL PRN (18:56)
[2017-08-27 19:07] VITALS: BP 115/66
== END 2017-08-27 19:06 | disposition home or self-care (01) ==
LOC: ED 12:30
DX: O21.1 Hyperemesis gravidarum with metabolic disturbance (principal); O23.42 Unspecified infection of urinary tract in pregnancy, second trimester; Z3A.19 19 weeks gestation of pregnancy; Z88.8 Allergy status to other drugs, medicaments and biological substances
CPT/HCPCS: 36415; 76815; 80053; 81003; 81015; 85025; 87086; 96361; 96374; 99283; A9270-GY; J2405

== ENCOUNTER 2017-09-08 16:17 | Emergency (ER) | payer OTHER ==
[2017-09-08] MEDS ORDERED: Albuterol 2.5 MG/3 ML NEB.SOL* (0.083%) INH ONE (17:01)
[2017-09-08 17:31] LABS: ABS Basophils 0 10^3/ul (0-0.2); ABS Eosinophils 0 10^3/ul (0-0.6); ABS Lymphocytes 0.8 10^3/ul (1.0-4.8); ABS Monocytes 0.2 10^3/ul (0-0.8); ABS Neutrophils 2.2 10^3/ul (1.5-7.7); ABS Nucleated RBC 0 10^3/ul; Eosinophil % 0.3 % (0-6); Hematocrit 30 % (35-47); Hemoglobin 10.3 g/dl (12.0-16.0); Lymphocyte % 24.6 % (25-47); Mean Corpuscular HGB Conc 34 g/dl (31-36); Mean Corpuscular Hemoglobin 30 pg (27-31); Mean Corpuscular Volume 89 fL (80-97); Mean Platelet Volume 8 um3 (7.4-10.4); Nucleated Red Blood Cells % 0.1; Platelet Count 237 10^3/ul (150-450); Red Blood Count 3.38 10^6/ul (4.0-5.4); Red Cell Distribution Width 13 % (10.5-15); White Blood Count 3.3 10^3/ul (3.5-10.8)
[2017-09-08 17:48] LABS: INR 0.96 (0.77-1.02)
[2017-09-08 17:50] LABS: EGFR Non-African American 124.5 (>60)
[2017-09-08] MEDS ORDERED: Oseltamivir CAP* 75 MG PO ONE (18:08)
[2017-09-08] MEDS ORDERED: cefTRIAXone(*) 1 GM in NS 0.9% 50 ML* 50 ML IVPB ONE (18:08)
[2017-09-08] MEDS ORDERED: NS 0.9% 1000 ML* 1,000 ML BOLUS SCH (18:15)
[2017-09-08] MEDS ORDERED: Ondansetron INJ* 2 MG/ML VIAL IV ONE (18:46)
[2017-09-08 18:51] LABS: Urine Appearance Clear; Urine Blood Negative (Negative); Urine Color Yellow; Urine Ketones Negative (Negative); Urine Protein Negative (Negative); Urine Urobilinogen Negative (Negative)
[2017-09-08] MEDS ORDERED: Albuterol HFA INHALER* 8 gm MDI INH ONE (19:08)
[2017-09-08] MEDS ORDERED: Magnesium Oxide TAB* 400 MG PO ONE (19:11)
[2017-09-08] MEDS ORDERED: Potassium Chlor TAB* 20 MEQ TAB.ER PO ONE (19:12)
[2017-09-08 20:09] VITALS: BP 109/44
--- NOTE | 2017-09-09 02:12 | ED ---
Shante Starks Julia, scribed for Chelsea Hollingsworth MD on 09/08/17 at 1706 . Complex/Multi-Sys Presentation - HPI Summary HPI Summary: This patient is a 31 year old F BIBA to [facility] with a chief complaint of general malaise that feels like bronchitis for past three days. Patient reports suprapubic abdominal pain and cramping, reproducible chest pain with palpation, fever, congestion, flu like symptoms, sore throat, cough, SOB, wheezing worse at night, dysuria, mucousy vaginal discharge, and body aches. The patient rates the suprapubic pain 8/10 in severity. Symptoms aggravated by cough. Symptoms alleviated by nothing. Patient is 21 weeks with intermittent spotting for a couple weeks (OB is aware). She has been 6 times. Patient has a history of heroin abuse. She reports she has not used heroin in 6 months, except for relapse on 08/19/17. Patient has history of heart murmur, asthma, and hepatitis C. Patient states she currently has a UTI dx 'ed in the ED 08/27/17 but is unable to keep her Keflex down. Pt had a pelvic ultrasound on 08/27/17 showing no placenta previa, single live IUP. - History Of Current Complaint Chief Complaint: EDGeneral Time Seen by Provider: 09/08/17 16:28 Hx Obtained From: Patient, Medical Records - on 08/27/17 Onset/Duration: Gradual Onset, Lasting Days Timing: Constant Severity Currently: Severe Severity Initially: Moderate - 8/10 - suprapubic Location: Pain At: - suprapubic abdomen and chest Character: Unable To Describe Aggravating Factor(s): cough Alleviating Factor(s): nothing Associated Signs And Symptoms: Positive: Cough, Wheezing, Abdominal Pain, Dysuria, Fever, Other - suprapubic abdominal pain and cramping, reproducible chest pain with palpation, fever, congestion, flu like symptoms, sore throat, cough, SOB, wheezing worse at night, dysuria, mucousy vaginal discharge, and body aches - Allergies/Home Medications Allergies/Adverse Reactions: Allergies Allergy/AdvReac Type Severity Reaction Status Date / Time Nitrofurantoin Allergy Severe Tingling Verified 08/27/17 12:52 [From Macrobid] Metronidazole [From Flagyl] Allergy Intermediate Tingling Verified 08/27/17 12: 52 Glyburide Allergy Hives Verified 08/27/17 12:52 Metformin Allergy Hives/Diff. Verified 08/27/17 12:52 Breathing/I tching PMH/Surg Hx/FS Hx/Imm Hx Previously Healthy: No Endocrine/Hematology History: Reports: Hx Diabetes - gestational diabetes Cardiovascular History: Reports: Other Cardiovascular Problems/Disorders - murmur Denies: Hx Hypertension Respiratory History: Reports: Hx Asthma GI History: Reports: Other GI Disorders - hep C Psychiatric History: Reports: Hx Substance Abuse - heroin, clean x 6 months, except relapse 08/19/17 - Surgical History Surgery Procedure, Year, and Place: appy. azar. right hand sx for cellulitis Infectious Disease History: Yes Infectious Disease History: Reports: Hx Hepatitis - C Denies: Hx Clostridium Difficile, Hx Human Immunodeficiency Virus (HIV), Hx of Known/Suspected MRSA, Hx Shingles, Hx Tuberculosis, Hx Known/Suspected VRE, Hx Known/Suspected VRSA, History Other Infectious Disease, Traveled Outside the [place] in Last 30 Days - Family History Known Family History: Positive: Cardiac Disease, Hypertension, Diabetes, Renal Disease, Other - lung cancer Negative: Respiratory Disease - Social History Alcohol Use: None Hx Substance Use: Yes Substance Use Type: Reports: Heroin, Prescribed Substance Use Comment - Amount & Last Used: On subutex Smoking Status (MU): Never Smoked Tobacco Review of Systems Positive: Fever, Other - body aches and general malaise Positive: Sore Throat, Other - congestion Positive: Chest Pain Positive: Shortness Of Breath, Cough, Other - wheezing Positive: Abdominal Pain Positive: dysuria, other - vaginal discharge Skin: Negative Neurological: Negative Psychological: Normal All Other Systems Reviewed And Are Negative: Yes Physical Exam - Summary Physical Exam Summary: Appearance: Ill-appearing, moderate pain distress, Well-nourished, obese, Skin: Warm, color reflects adequate perfusion Head: Normal Head/Face inspection Eyes: Conjunctiva clear ENT: Enlarged tonsils but No tonsillar exudate, Red pharynx, TM's clear, hoarse voice Neck: Supple, no nodes, no JVD. Respiratory: Scattered expiratory wheezes, no respiratory distress, chest pain reproducible on palpation Cardio: RRR, No murmur to my exam, pulses normal, brisk capillary refill Abdomen: soft, minimal diffuse lower abdominal tenderness, fundus palpable at umbilicus. FHR 160 by ultrasound Bowel sounds: present Pelvic exam: external genitalia normal, no vaginal bleeding, mod amt white discharge, cervix long and closed, uterus enlarged with fundus at umbilicus, nontender, adnexae no masses, nontender Musculoskeletal: Strength Intact/ ROM intact. No calf tenderness. No edema. Neuro: Alert, muscle tone normal, facial symmetry, speech normal, sensory/motor intact Psychological: Normal Triage Information Reviewed: Yes Vital Signs On Initial Exam: Initial Vitals Temp Pulse Resp BP Pulse Ox 99.4 F 92 14 114/53 95 09/08/17 16:22 09/08/17 16:22 09/08/17 16:22 09/08/17 16:22 09/08/17 16:22 Vital Signs Reviewed: Yes Diagnostics - Vital Signs Vital Signs Temp Pulse Resp BP Pulse Ox 09/08/17 16:44 112/59 09/08/17 16:39 91 25 99 09/08/17 16:30 96 25 114/48 96 09/08/17 16:26 24 09/08/17 16:24 114/53 09/08/17 16:22 99.4 F 92 14 114/53 95 - Laboratory Lab Results: Lab Results 09/08/17 09/08/17 Range/Units 17:05 17:06 Influenza A (Rapid) Negative (Negative) Influenza B (Rapid) Positive H (Negative) Group A Strep Rapid Positive H (Negative) Result Diagrams: 09/08/17 17:14 09/08/17 17:14 Lab Statement: Any lab studies that have been ordered have been reviewed, and results considered in the medical decision making process. - EKG 16:57 Cardiac Rate: NL EKG Rhythm: Sinus Rhythm - at [address] Segment: Non-Specific Ectopy: None EKG Interpretation: nml AVIVCT nml QTc nml axis - Additional Comments Diagnostic Additional Comments: US (08/27/2017) reveals Viable-appearing single 10 intrauterine gestation with normal movement and cardiac activity with appropriate interval growth. Negative for placenta previa.Qualitatively normal amniotic fluid volume. Unremarkable posterior placenta. Closed cervix. ED physician has reviewed this report. Re-Evaluation - Re-Evaluation 1st Re-Evaluation Time: 16:35 Comment: US reveal HR of 160, Pt advised of +strep and influenza and that pelvic and urine cultures are pending. Complex Multi-Symp Course/Dx Course Of Treatment: Patient presents with sore throat, general malaise, and UTI diagnosed on 08/27/17, however cultures show no growth, so no need to continue with antibiotics. Urine culture obtained tonight was obtained via straight cath so as to prevent any contamination from ext genitalia. In the ED patient was given Ceftriaxone, potassium, magnesium, Tamiflu, saline, and Albuterol neb. Full ultrasound was not needed as pt did not have vaginal bleeding and on US done 10 days ago, pt had no placenta previa or serious cause for vag spotting. Patient's condition was improved with ED treatments. Pt is not vomiting so pt can be DC'd home on oral therapy with amoxicillin for the strep and tamiflu for the influenza. - Diagnoses Differential Diagnoses/HQI/PQRI: Sepsis, Urinary Tract Infection, Other - influenza Provider Diagnoses: Hypomagnesemia, Strep throat, Hypokalemia, Bronchitis, Influenza, Chest pain Discharge - Discharge Plan Condition: Stable Disposition: HOME Prescriptions: Albuterol HFA INHALER* [Ventolin HFA Inhaler*] 1 - 2 puff INH Q6H PRN #1 mdi PRN Reason: Cough Amoxicillin PO (*) [Amoxicillin 875 MG (*)] 875 mg PO BID #20 tab Ondansetron ODT TAB* [Zofran 4 MG Odt TAB*] 4 mg PO Q6H PRN #15 tab.odt PRN Reason: Vomiting Oseltamivir CAP* [Tamiflu CAP*] 75 mg PO BID #10 cap Patient Education Materials: Strep Throat (ED), Influenza (ED), Acute Bronchitis (ED) Referrals: [facility] [place] [facility] [Outside] (call this number to get established with a primary care provider ) Keshia Hernandez MD [Medical Doctor] - (as scheduled ) Additional Instructions: The baby's heart rate was 160 today. You have pending pelvic cultures. We will contact you if you need any further treatment based on these results. You may stop the keflex. Take the tamiflu and amoxicillin as directed twice a day. You may use the inhaler as needed. Return to the ER if you have new or worsening symptoms. The documentation as recorded by the Shante rocha Julia accurately reflects the service I personally performed and the decisions made by me, Chelsea Hollingsworth MD.
== END 2017-09-08 21:20 | disposition home or self-care (01) ==
LOC: ED 16:17
DX: E83.42 Hypomagnesemia (principal); J02.0 Streptococcal pharyngitis; J11.1 Influenza due to unidentified influenza virus with other respiratory manifestations; J40 Bronchitis, not specified as acute or chronic; E87.6 Hypokalemia; R05 Cough; R06.02 Shortness of breath; R06.2 Wheezing; R10.9 Unspecified abdominal pain; R07.9 Chest pain, unspecified
CPT/HCPCS: 36415; 80053; 81003; 82150; 83605; 83690; 83735; 84702; 85025; 85610; 85730; 86140; 87480; 87491; 87502; 87510; 87591; 87651; 87661; 93005; 94640; 96365; 99284; A9270-GY; J0696; J2405

== ENCOUNTER 2018-01-06 07:04 | Inpatient (IN) | payer OTHER ==
[2018-01-06] MEDS ORDERED: Dinoprostone* 10 MG VAG.SUPP VAGINAL ONE (08:02)
[2018-01-06 10:47] LABS: ABS Basophils 0 10^3/ul (0-0.2); ABS Eosinophils 0.1 10^3/ul (0-0.6); ABS Lymphocytes 2.3 10^3/ul (1.0-4.8); ABS Monocytes 0.7 10^3/ul (0-0.8); ABS Neutrophils 5.8 10^3/ul (1.5-7.7); ABS Nucleated RBC 0 10^3/ul; Eosinophil % 0.6 % (0-6); Hematocrit 25 % (35-47); Hemoglobin 8.7 g/dl (12.0-16.0); Lymphocyte % 26.1 % (25-47); Mean Corpuscular HGB Conc 35 g/dl (31-36); Mean Corpuscular Hemoglobin 29 pg (27-31); Mean Corpuscular Volume 85 fL (80-97); Mean Platelet Volume 8.5 um3 (7.4-10.4); Nucleated Red Blood Cells % 0; Platelet Count 267 10^3/ul (150-450); Red Blood Count 2.97 10^6/ul (4.0-5.4); Red Cell Distribution Width 12 % (10.5-15); White Blood Count 8.9 10^3/ul (3.5-10.8)
[2018-01-06 11:30] LABS: EGFR Non-African American 143.9 (>60)
[2018-01-06] MEDS: Ondansetron TAB* 4 MG PO PRN ×3 (11:35→23:31)
[2018-01-06] MEDS: Buprenorphine TAB* 8 MG PO SCH ×3 (11:35→23:30)
[2018-01-06] MEDS ORDERED: Calcium Carbonate CHEW TAB* 500 MG (TUMS) PO ONE (13:00)
[2018-01-07] MEDS ORDERED: Dinoprostone* 10 MG VAG.SUPP VAGINAL ONE (01:10)
[2018-01-07] MEDS ORDERED: Docusate CAP* 100 MG PO PRN (01:13)
[2018-01-07] MEDS ORDERED: Promethazine INJ(RESTRICTED)* 25 MG/ML 1 ML VIAL IV ONE (03:30)
[2018-01-07] MEDS ORDERED: Nalbuphine* 20 MG/ML 1 ML VIAL IV ONE (03:30)
[2018-01-07] MEDS ORDERED: Promethazine INJ(RESTRICTED)* 25 MG/ML 1 ML VIAL ONE (03:35)
[2018-01-07] MEDS ORDERED: Nalbuphine* 20 MG/ML 1 ML VIAL ONE (04:14)
[2018-01-07] MEDS: Ondansetron TAB* 4 MG PO PRN (11:53)
[2018-01-07] MEDS: Buprenorphine TAB* 8 MG PO SCH (11:54)
== END 2018-01-07 14:18 | disposition home or self-care (01) | DRG 566 ==
LOC: MCHOBOUT 07:04 → MCHOB 07:50
PROVIDERS: ADMIT Obstetrics & Gynecology; ATTEND Obstetrics & Gynecology
PROC: 3E033VJ Introduction of Other Hormone into Peripheral Vein, Percutaneous Approach (ICD-10-PCS; principal; 2018-01-06)
DX: O36.5930 Maternal care for other known or suspected poor fetal growth, third trimester, not applicable or unspecified (principal); O61.0 Failed medical induction of labor; Z3A.39 39 weeks gestation of pregnancy
CPT/HCPCS: 36415; 80053; 80307; 85025; 86850; 86870; 86880; 86900; 86901; 87522; A9270-GY; J2300; J2550

== ENCOUNTER 2018-01-08 08:40 | Inpatient (IN) | payer OTHER ==
--- NOTE | 2018-01-08 09:28 | HP ---
General Information - General Information Maternal Age: 32 Grav: 6 Para: 4 SAB: 0 IEA: 1 Estimated Due Date: 01/12/18 Determined By: Early Ultrasound Gestational Age in Weeks and Days: 39 Weeks and 3 Days Maternal Blood Type and Rh: O Negative - Results this Serology/RPR Result: Non-Reactive Rubella Result: Non-Immune HBsAg Result: Negative HIV Result: Negative GBS Culture Result: Negative Past Medical History Delivery History: See Records Pertinent Past Medical History: See Records Pertinent Past Surgical History: See Records Pertinent Family History: Non-Contributory - Antepartal Records Antepartal Records: Reviewed, Complicated by: - subutex mainenace/ hepatitis c/ history of seizure disorder/obesity Review of Systems Constitutional: Comfortable CV Complaint: No - murmur known Respiratory: Shortness of Breath: No Gastrointestinal: No Nausea/Vomiting Genitourinary: No Bleeding, No Leaking Fluid Musculoskeletal: No Complaint Neurological: No Headache Movement: Normal Exam Allergies/Adverse Reactions: Allergies glyburide Allergy (Verified 01/08/18 09:15) Hives tongue swells metformin Allergy (Verified 01/08/18 09:15) Hives/Diff.Breathing/Itching tongue swells metronidazole [From Flagyl] Allergy (Verified 01/08/18 09:15) Tingling tongue swells nitrofurantoin [From Macrobid] Allergy (Verified 01/08/18 09:15) Tingling tongue swells - Measurements Height: 5 ft 4 in Weight: 206 lb Weight in lbs: 206 Body Mass Index (BMI): 35.3 Pre- Weight: 199 lb Weight Gained This : 7 lbs and 0 ozs - Exam Abdomen: No Upper Quadrant Pain Targeted Exam Findings Cervical Exam: 2cm, 3cm Effacement: 50% Station: -2 Presenting Part: Vertex Membrane Status: AROM - not certain but probably EFM Findings - External Monitor Findings Baseline Heart Rate: 130 External Monitor Findings: Variability Moderate Contractions: Irregular Assessment/Plan - Obstetrical Risk Factors Obstetrical Risk Factors: Obesity, Substance Abuse, Psychosocial Issues - Plan Plan: Induction
[2018-01-08 09:53] LABS: ABS Basophils 0 10^3/ul (0-0.2); ABS Eosinophils 0.1 10^3/ul (0-0.6); ABS Lymphocytes 2.6 10^3/ul (1.0-4.8); ABS Monocytes 0.6 10^3/ul (0-0.8); ABS Neutrophils 5.4 10^3/ul (1.5-7.7); ABS Nucleated RBC 0 10^3/ul; Eosinophil % 0.6 % (0-6); Hematocrit 28 % (35-47); Hemoglobin 9.3 g/dl (12.0-16.0); Lymphocyte % 29.8 % (25-47); Mean Corpuscular HGB Conc 34 g/dl (31-36); Mean Corpuscular Hemoglobin 29 pg (27-31); Mean Corpuscular Volume 87 fL (80-97); Mean Platelet Volume 8.3 um3 (7.4-10.4); Nucleated Red Blood Cells % 0; Platelet Count 259 10^3/ul (150-450); Red Blood Count 3.19 10^6/ul (4.0-5.4); Red Cell Distribution Width 13 % (10.5-15); White Blood Count 8.7 10^3/ul (3.5-10.8)
[2018-01-08] MEDS ORDERED: Oxytocin in LR* 20 UNITS/1,000 ML BAG IVPB SCH ×2 (10:00→23:00)
[2018-01-08] MEDS: Buprenorphine TAB* 8 MG PO SCH ×4 (10:40→22:12)
[2018-01-08] MEDS ORDERED: OBEPIDURAL* 250 ML EPIDURAL ONE (15:44)
[2018-01-08] MEDS ORDERED: Famotidine TAB* 20 MG PO PRN (16:47)
[2018-01-08] MEDS ORDERED: Sodium Citrate/Citric Acid* 15 ML UDC PO PRN (16:47)
[2018-01-08] MEDS ORDERED: Phenylephrine IV* 40 MCG/ML 10 ML SYRINGE IV PUSH PRN ×2 (16:47)
[2018-01-08] MEDS ORDERED: OBEPIDURAL* 250 ML EPIDURAL SCH (17:00)
[2018-01-08] MEDS ORDERED: Dibucaine 1% 28.35 GM TUBE PR PRN (22:01)
[2018-01-08] MEDS ORDERED: Witch Hazel PAD* JAR TOPICAL PRN (22:01)
[2018-01-08] MEDS ORDERED: Acetaminophen TAB* 325 MG PO PRN (22:01)
[2018-01-08] MEDS ORDERED: Glycerin ADULT SUPP PR PRN (22:01)
[2018-01-08] MEDS ORDERED: RHO D Immune Globulin (HUMAN)* 300 MCG = 1,500 I.U. INJ IM ONE (22:01)
[2018-01-08] MEDS: Ondansetron ODT TAB* 4 MG PO PRN (22:13)
[2018-01-09] MEDS: Ibuprofen TAB* 600 MG PO PRN ×4 (01:08→21:01)
[2018-01-09 06:27] LABS: ABS Basophils 0.1 10^3/ul (0-0.2); ABS Eosinophils 0 10^3/ul (0-0.6); ABS Monocytes 0.9 10^3/ul (0-0.8); ABS Nucleated RBC 0 10^3/ul; Eosinophil % 0.2 % (0-6); Hematocrit 23 % (35-47); Hemoglobin 7.9 g/dl (12.0-16.0); Lymphocyte % 21.4 % (25-47); Mean Corpuscular HGB Conc 34 g/dl (31-36); Mean Corpuscular Hemoglobin 29 pg (27-31); Mean Corpuscular Volume 85 fL (80-97); Mean Platelet Volume 8.6 um3 (7.4-10.4); Nucleated Red Blood Cells % 0; Platelet Count 221 10^3/ul (150-450); Red Blood Count 2.76 10^6/ul (4.0-5.4); Red Cell Distribution Width 13 % (10.5-15)
[2018-01-09] MEDS ORDERED: Simethicone TAB* 80 MG TAB.CHEW PO SCH (08:30)
[2018-01-09] MEDS: Docusate CAP* 100 MG PO SCH ×3 (09:19→21:01)
[2018-01-09] MEDS: Ondansetron ODT TAB* 4 MG PO PRN (09:19)
[2018-01-09] MEDS: Ferrous Gluconate TAB* 324 MG TAB PO SCH ×2 (09:20→21:01)
[2018-01-09] MEDS: Buprenorphine TAB* 8 MG PO SCH ×3 (09:21→21:02)
[2018-01-10 08:10] VITALS: BP 125/63
[2018-01-10] MEDS: Buprenorphine TAB* 8 MG PO SCH ×3 (09:01→20:56)
[2018-01-10] MEDS: Ferrous Gluconate TAB* 324 MG TAB PO SCH ×2 (09:01→20:57)
[2018-01-10] MEDS: Docusate CAP* 100 MG PO SCH ×3 (09:01→20:57)
[2018-01-10] MEDS: Ibuprofen TAB* 600 MG PO PRN (18:59)
== END 2018-01-10 21:05 | disposition home or self-care (01) | DRG 560 ==
LOC: MCHOBOUT 08:40 → MCHOB 09:26
PROVIDERS: ADMIT Obstetrics & Gynecology; ATTEND Obstetrics & Gynecology
PROC: 10E0XZZ Delivery of Products of Conception, External Approach (ICD-10-PCS; principal; 2018-01-08)
PROC: 3E0P7VZ Introduction of Hormone into Female Reproductive, Via Natural or Artificial Opening (ICD-10-PCS; 2018-01-08)
PROC: 10907ZC Drainage of Amniotic Fluid, Therapeutic from Products of Conception, Via Natural or Artificial Opening (ICD-10-PCS; 2018-01-08)
PROC: 3E033VJ Introduction of Other Hormone into Peripheral Vein, Percutaneous Approach (ICD-10-PCS; 2018-01-08)
PROC: 4A1HXCZ Monitoring of Products of Conception, Cardiac Rate, External Approach (ICD-10-PCS; 2018-01-08)
DX: O99.214 Obesity complicating childbirth (principal); O98.42 Viral hepatitis complicating childbirth; O99.324 Drug use complicating childbirth; F11.10 Opioid abuse, uncomplicated; O69.1XX0 Labor and delivery complicated by cord around neck, with compression, not applicable or unspecified; E66.01 Morbid (severe) obesity due to excess calories; B19.20 Unspecified viral hepatitis C without hepatic coma; O36.5930 Maternal care for other known or suspected poor fetal growth, third trimester, not applicable or unspecified; Z62.810 Personal history of physical and sexual abuse in childhood; Z88.8 Allergy status to other drugs, medicaments and biological substances; Z88.1 Allergy status to other antibiotic agents; Z68.35 Body mass index [BMI] 35.0-35.9, adult; Z3A.39 39 weeks gestation of pregnancy; O90.81 Anemia of the puerperium; Z37.0 Single live birth; Z59.0 Homelessness
CPT/HCPCS: 36415; 80307; 85025; 85461; 86900; 86901; A9270-GY; J2790

== ENCOUNTER 2018-02-08 16:33 | Emergency (ER) | payer OTHER ==
--- NOTE | 2018-02-08 17:10 | UC ---
Respiratory Complaint HPI - HPI Summary HPI Summary: 32 y/o female presents to the urgent care c/o reports that she had a fever last night with a slight cough. She woke up this morning with a blister on the right corner of her mouth and her tongue is sore. She denies Hx of cold sores or herpes. She also has a sore throat. She is s/ p Normal spontaneous vaginal delivery 1 month ago. She still has some spotting here and there, but she denies vaginal drainage. She does report vaginal odor. For the last week she c/o pain in her back after she voids. She denies pain or burnining in the perineal area when she voids. She is living at the homeless [facility] [place] and there are people there who are sick. - History of Current Complaint Stated Complaint: CONGESTION, THROAT PAIN Time Seen by Provider: 02/08/18 17:00 Hx Obtained From: Patient Hx Last Menstrual Period: 2 MOS Onset/Duration: Gradual Onset, Lasting Days - yesterday, Still Present, Worse Since - 9is morning Timing: Constant Severity Initially: Mild Severity Currently: Moderate Pain Intensity: 5 Pain Scale Used: 0-10 Numeric Character: Cough: Nonproductive Aggravating Factors: Recumbent Position Associated Signs And Symptoms: Positive: Fever, Chills, URI - Risk Factors Pulmonary Embolism Risk Factors: Negative Cardiac Risk Factors: Negative Pseudomonas Risk Factors: Negative Tuberculosis Risk Factors: Negative - Allergies/Home Medications Allergies/Adverse Reactions: Allergies Allergy/AdvReac Type Severity Reaction Status Date / Time glyburide Allergy Hives Verified 02/08/18 17:22 metformin Allergy Hives/Diff. Verified 02/08/18 17:22 Breathing/I tching metronidazole [From Flagyl] Allergy Tingling Verified 02/08/18 17:22 nitrofurantoin Allergy Tingling Verified 02/08/18 17:22 [From Macrobid] Home Medications: Home Medications Buprenorphine TAB* [Subutex TAB*] 8 mg SL DAILY 02/08/18 [History Confirmed ] PMH/Surg Hx/FS Hx/Imm Hx Previously Healthy: Yes Other Endocrine History: Gestetational DM Respiratory History: Bronchitis - Surgical History Surgical History: Yes Surgery Procedure, Year, and Place: [facility]. right hand sx for cellulitis - Family History Known Family History: Positive: Cardiac Disease, Hypertension, Diabetes, Renal Disease Negative: Respiratory Disease Family History: lung cancer - Social History Occupation: Unemployed Lives: Dormitory/Roommates - [facility] Alcohol Use: None Substance Use Type: Heroin Substance Use Comment - Amount & Last Used: has been on subutex for last 7 months with STAP Smoking Status (MU): Never Smoked Tobacco Household Exposure Type: Cigarettes - Immunization History Most Recent Influenza Vaccination: Declined in office Most Recent Pneumonia Vaccination: Uknown Review of Systems Constitutional: Fever, Chills Skin: Rash - in the lips w/ some yellowish drainage Eyes: Negative ENT: Sore Throat, Nasal Discharge - clear Respiratory: Cough - dry Cardiovascular: Negative Gastrointestinal: Negative Genitourinary: Frequency Motor: Negative Neurovascular: Negative Musculoskeletal: Negative Neurological: Negative Psychological: Negative Is Patient Immunocompromised?: No All Other Systems Reviewed And Are Negative: Yes Physical Exam - Summary Physical Exam Summary: Vital Signs Reviewed: Yes General: well developed, well nourished female sitting in the examining table w/ o any apparent distress Eyes: Positive: Conjunctiva Clear - PERRLA, EOMI, fundi grossly normal ENT: Positive: Normal ENT inspection, Hearing grossly normal, Pharynx mild erythema, no exudate, Nasal congestion - edematous and erythematous nasal mucosa , Nasal drainage - clear drainage, TMs normal. Negative: Tonsillar swelling, Tonsillar exudate Neck: Positive: Supple, Nontender, No Lymphadenopathy Respiratory: no orthopnea or dyspnea. Able to speak in full sentences, no retractions or accessory muscle use, no tripod position, stridor, or head bobbing. CTA bilaterally, no wheezing, no rhonchi, no rales, no crackles. Cardiovascular: Positive: RRR, No Murmur, Pulses Normal, Brisk Capillary Refill Abdomen Description: Positive: Nontender, No Organomegaly, Soft. Negative: CVA Tenderness (R), CVA Tenderness (L) Bowel Sounds: Positive: Present Musculoskeletal Exam: Normal Musculoskeletal: Positive: Strength Intact, ROM Intact, No Edema Neurological Exam: Normal Psychological Exam: Normal Skin Exam: Normal. Positie erythematus papule w/ some crusting in the Rt corner of the lower lip, tender to palpation Triage Information Reviewed: Yes Respiratory Course/Dx - Course Course Of Treatment: Pt w/ pharyngitis and impetigo on examination. Rapid strep ordered: result: positive. Strep pharyngitis. Rx Amoxicillin PO and Ibuprofen PO for fever, pain and swelling, Bactroban oint to alleviate rash around lips. Pt w/ frequency on urination, but not pain. UA ordered: +Blood and Leukoesteraces. Urine sent to lab to r/o UTI. Pt will be notified. PT Advised on hand washing to avoid spreading. cover her mouth to avoid spread to her baby. Also advised to rest, eat well and avoid strenuous exercise. Strongly advised If symptoms do not improve or worsen advised to return to the urgent care or f/u with her PCP for further evaluation and treatment. PT understood and agreed w/ plan of care. - Differential Dx/Diagnosis Differential Diagnosis/HQI/PQRI: Lower Resp Infection, Sinusitis, Other - pharyngitis, UTI Provider Diagnoses: 1- Strep pharyngitis. 2- Impetigo Discharge - Sign-Out/Discharge Documenting (check all that apply): Discharge/Admit/Transfer - D/c home - Discharge Plan Condition: Stable Disposition: HOME Prescriptions: Amoxicillin PO (*) [Amoxicillin 500 MG CAP*] 500 mg PO Q12H #20 cap Mupirocin 2% CREAM* [Bactroban 2% CREAM*] 1 applic TOPICAL BID #1 tube Patient Education Materials: Strep Throat (ED) Referrals: [facility] [place] PHYSICIAN REFERRAL [Outside] - 3 Days No Primary Care Phys,NOPCP [Primary Care Provider] - Additional Instructions: 1- Please take the full course of the antibiotic to avoid resistance. 2- Apply Bactroban topical cream on the rash around lip 3-Please take ibuprofen PO q6-8hrs prn as instructed after meals to alleviate fever, pain and swelling. Increase fluid intake, eat well, rest and avoid strenuous exercise 4-If symptoms do not improve or worsen please return to the urgent care or f/u with your PCP for further evaluation and treatment. 5- Urine was sent to the lab to r/o any abnormality you will be notified - Billing Disposition and Condition Condition: STABLE Disposition: Home
[2018-02-08 17:23] VITALS: BP 128/69
== END 2018-02-08 18:37 | disposition home or self-care (01) ==
LOC: UCEAST 16:33
DX: J02.0 Streptococcal pharyngitis (principal); L01.00 Impetigo, unspecified; Z88.1 Allergy status to other antibiotic agents; Z88.2 Allergy status to sulfonamides; Z88.8 Allergy status to other drugs, medicaments and biological substances; Z86.32 Personal history of gestational diabetes; Z82.49 Family history of ischemic heart disease and other diseases of the circulatory system; Z83.3 Family history of diabetes mellitus; Z84.1 Family history of disorders of kidney and ureter; Z80.1 Family history of malignant neoplasm of trachea, bronchus and lung
CPT/HCPCS: 81003; 84702; 87086; 87651; 99212; G0463

== ENCOUNTER 2018-03-08 12:31 | Emergency (ER) | payer OTHER ==
[2018-03-08] MEDS ORDERED: Bupivacaine 0.5%* 50 ML VIAL INJ ONE (13:25)
[2018-03-08] MEDS ORDERED: Clindamycin CAP* 150 MG PO ONE (13:29)
[2018-03-08 14:37] VITALS: BP 163/98
--- NOTE | 2018-03-08 15:39 | ED ---
Throat Pain/Nasal Congestion - HPI Summary HPI Summary: Patient is a 32-year-old female who presents emergency department for dental pain and facial swelling. Patient states following started several days ago and pain has become worse. States she did have a fever today. Denies associated symptoms of nausea or vomiting. Symptoms are mild in severity. Past without significant past medical history. Eating and touching affected area makes symptoms worse. Nothing makes symptoms. Pt. state she has been taking tylenol and motrin without relief. Currently on suboxone. - History of Current Complaint Chief Complaint: EDDentalPain Time Seen by Provider: 03/08/18 13:00 Hx Obtained From: Patient - Allergies/Home Medications Allergies/Adverse Reactions: Allergies Allergy/AdvReac Type Severity Reaction Status Date / Time glyburide Allergy Hives Verified 03/08/18 12:48 metformin Allergy Hives/Diff. Verified 03/08/18 12:48 Breathing/I tching metronidazole [From Flagyl] Allergy Tingling Verified 03/08/18 12:48 nitrofurantoin Allergy Tingling Verified 03/08/18 12:48 [From Macrobid] PMH/Surg Hx/FS Hx/Imm Hx Previously Healthy: Yes Endocrine/Hematology History: Reports: Hx Diabetes - history gestational diabetes Cardiovascular History: Reports: Other Cardiovascular Problems/Disorders - murmur Denies: Hx Hypertension Respiratory History: Reports: Hx Asthma GI History: Reports: Other GI Disorders - hep C Psychiatric History: Reports: Hx Anxiety, Hx Substance Abuse - heroin, clean x 6 months, except relapse 08/19/17 - Surgical History Surgery Procedure, Year, and Place: [facility]. right hand sx for cellulitis Infectious Disease History: No Infectious Disease History: Reports: Hx Hepatitis - C Denies: Hx Clostridium Difficile, Hx Human Immunodeficiency Virus (HIV), Hx of Known/Suspected MRSA, Hx Shingles, Hx Tuberculosis, Hx Known/Suspected VRE, Hx Known/Suspected VRSA, History Other Infectious Disease, Traveled Outside the [place] in Last 30 Days - Family History Known Family History: Positive: Cardiac Disease, Hypertension, Diabetes, Renal Disease, Other - lung cancer Negative: Respiratory Disease Family History: lung cancer - Social History Occupation: Unemployed Lives: With Family Alcohol Use: None Hx Substance Use: Yes Substance Use Type: Reports: Heroin Substance Use Comment - Amount & Last Used: has been on subutex for last 7 months with STAP Smoking Status (MU): Never Smoked Tobacco Review of Systems Positive: Chills. Negative: Fever Eyes: Negative Positive: Dental Pain Negative: Vomiting, Nausea All Other Systems Reviewed And Are Negative: Yes Physical Exam Triage Information Reviewed: Yes Vital Signs On Initial Exam: Initial Vitals Temp Pulse Resp BP Pulse Ox 97.4 F 64 18 153/100 95 03/08/18 12:40 03/08/18 12:40 03/08/18 12:40 03/08/18 12:40 03/08/18 12:40 Vital Signs Reviewed: Yes Appearance: Positive: Well-Appearing - Pt. sitting on bed in NAD. Family present. Skin: Positive: Warm, Dry Head/Face: Positive: Other - Mild facial edema noted over the left maxillary region. Eyes: Positive: Normal ENT: Positive: Pharynx normal Dental: Positive: Other - Poor dentition noted through out. Pain to left top lateral incisor and over posterior left back molars. No drainable abscess. No swelling or pain under tongue. No trismus. No submandibular edema. Neck: Positive: Supple, Nontender, No Lymphadenopathy Neurological: Positive: Normal, CN Intact II-III Psychiatric: Positive: Affect/Mood Appropriate Procedures - Procedure Summary Procedure Summary: Bupivacaine used to perform a supraperiosteal and greater palantine nerve block on the left. Pt. tolerated well. Diagnostics - Vital Signs Vital Signs Temp Pulse Resp BP Pulse Ox 03/08/18 14:32 97.7 F 57 16 163/98 98 03/08/18 12:40 97.4 F 64 18 153/100 95 - Laboratory Lab Statement: Any lab studies that have been ordered have been reviewed, and results considered in the medical decision making process. EENT Course/Dx - Course Course Of Treatment: Pt. presenting for dental pain and abscess. No drainable abscess noted on exam. Dental block performed with good pain relief. Started on Clindamycin. Pt. has an upcoming apt. with her dentist for f.u. Naproxen rx. To return to ER if symptoms change or worsen. Pt. understands and agrees with plan. - Differential Diagnoses Differential Diagnoses: Periodontic Abscess, Periodontic Disease, Peritonsillar Ulcer - Diagnoses Provider Diagnoses: Dental abscess Discharge - Sign-Out/Discharge Documenting (check all that apply): Patient Departure - Discharge Plan Condition: Good Disposition: HOME Prescriptions: Clindamycin Cap(NF) [Clindamycin Cap 300 mg Cap(NF)] 300 mg PO Q6H #40 cap Naproxen [Naproxen 500 mg tab] 500 mg PO Q12H #20 tablet Patient Education Materials: Dental Abscess (ED) Referrals: No Primary Care Phys,NOPCP [Primary Care Provider] - Additional Instructions: Follow up with your dentist as scheduled Take medication as directed Apply warm compresses to face Return to ER for increased swelling, fever, vomiting, difficulty opening mouth - Billing Disposition and Condition Condition: GOOD Disposition: Home
== END 2018-03-08 14:32 | disposition home or self-care (01) ==
LOC: ED 12:31
DX: K04.7 Periapical abscess without sinus (principal); Z88.8 Allergy status to other drugs, medicaments and biological substances
CPT/HCPCS: 96372; 99282; A9270-GY

== ENCOUNTER 2018-03-18 11:03 | Emergency (ER) | payer OTHER ==
[2018-03-18] MEDS ORDERED: NS 0.9% 1000 ML* 2,000 ML IV ONE (11:11)
[2018-03-18] MEDS ORDERED: Ketorolac INJ* 30 MG/ML 1 ML VIAL IV ONE (11:11)
[2018-03-18] MEDS ORDERED: Ondansetron INJ* 2 MG/ML VIAL IV ONE (11:11)
--- NOTE | 2018-03-18 11:13 | ED ---
GI/ HPI - HPI Summary HPI Summary: 32 y/o female presents to the ED c/o 6/10 R side flank pain starting 2 days ago. Pain aggravated with deep breaths, described as a stabbing pain. Pt takes Subutex. Episode of diaphoresis, N/V 2 days ago. Associated sx: blood in urine, blood in vomit (small amounts). PMHx kidney stone 2 years ago; pt states it feels the same. Pt delivered a child 2 months ago. This is scribe Ed Monica documenting for attending Wenceslao Lockett MD - History of Current Complaint Time Seen by Provider: 03/18/18 11:06 Stated Complaint: BACK PAIN Hx Obtained From: Patient Hx Last Menstrual Period: 2 MOS Onset/Duration: Started Days Ago Timing: Constant Current Severity: Severe Pain Intensity: 10 Location of Pain: Flank - R side Pain Characteristics: Other: - stabbing Associated Signs and Symptoms: Positive: Nausea, Vomiting, Diaphoresis, Other: - blood in urine, blood in vomit - Allergy/Home Medications Allergies/Adverse Reactions: Allergies Allergy/AdvReac Type Severity Reaction Status Date / Time glyburide Allergy Hives Verified 03/08/18 12:48 metformin Allergy Hives/Diff. Verified 03/08/18 12:48 Breathing/I tching metronidazole [From Flagyl] Allergy Tingling Verified 03/08/18 12:48 nitrofurantoin Allergy Tingling Verified 03/08/18 12:48 [From Macrobid] PMH/Surg Hx/FS Hx/Imm Hx Previously Healthy: No Endocrine/Hematology History: Reports: Hx Diabetes - history gestational diabetes Cardiovascular History: Reports: Other Cardiovascular Problems/Disorders - murmur Denies: Hx Hypertension Respiratory History: Reports: Hx Asthma GI History: Reports: Other GI Disorders - hep C Psychiatric History: Reports: Hx Anxiety, Hx Substance Abuse - heroin, clean x 6 months, except relapse 08/19/17 - Surgical History Surgery Procedure, Year, and Place: [facility]. right hand sx for cellulitis Infectious Disease History: No Infectious Disease History: Reports: Hx Hepatitis - C Denies: Hx Clostridium Difficile, Hx Human Immunodeficiency Virus (HIV), Hx of Known/Suspected MRSA, Hx Shingles, Hx Tuberculosis, Hx Known/Suspected VRE, Hx Known/Suspected VRSA, History Other Infectious Disease, Traveled Outside the [place] in Last 30 Days - Family History Known Family History: Positive: Cardiac Disease, Hypertension, Diabetes, Renal Disease, Other - lung cancer Negative: Respiratory Disease Family History: lung cancer - Social History Alcohol Use: None Hx Substance Use: Yes Substance Use Type: Reports: Heroin Substance Use Comment - Amount & Last Used: has been on subutex for last 7 months with STAP Smoking Status (MU): Never Smoked Tobacco Review of Systems Positive: Skin Diaphoresis Eyes: Negative ENT: Negative Cardiovascular: Negative Respiratory: Negative Positive: Vomiting - blood in vomit (small amount), Nausea Positive: flank pain - R side, other - blood in urine (small amount) Musculoskeletal: Negative Skin: Negative Neurological: Negative Psychological: Normal All Other Systems Reviewed And Are Negative: Yes Physical Exam - Summary Physical Exam Summary: VITAL SIGNS: Reviewed. GENERAL: Patient is a well-developed and nourished FEMALE who is lying comfortable in the stretcher. Patient is not in any acute respiratory distress. HEAD AND FACE: No signs of trauma. No ecchymosis, hematomas or skull depressions. No sinus tenderness. EYES: PERRLA, EOMI x 2, No injected conjunctiva, no nystagmus. EARS: Hearing grossly intact. Ear canals and tympanic membranes are within normal limits. MOUTH: Oropharynx within normal limits. NECK: Supple, trachea is midline, no adenopathy, no JVD, no carotid bruit, no c- spine tenderness, neck with full ROM. CHEST: Symmetric, no tenderness at palpation LUNGS: Clear to auscultation bilaterally. No wheezing or crackles. CVS: Regular rate and rhythm, S1 and S2 present, no murmurs or gallops appreciated. ABDOMEN: Soft, R CVA tenderness. No signs of distention. No rebound no guarding , and no masses palpated. Bowel sounds are normal. EXTREMITIES: FROM in all major joints, no edema, no cyanosis or clubbing. NEURO: Alert and oriented x 3. No acute neurological deficits. Speech is normal and follows commands. SKIN: Dry and warm Triage Information Reviewed: Yes Vital Signs On Initial Exam: Initial Vitals Temp Pulse Resp BP Pulse Ox 98.0 F 94 18 100/78 98 03/18/18 11:06 03/18/18 11:06 03/18/18 11:06 03/18/18 11:06 07/24/18 11:06 Vital Signs Reviewed: Yes Diagnostics - Vital Signs Vital Signs Temp Pulse Resp BP Pulse Ox 03/18/18 11:06 98.0 F 94 18 100/78 98 - Laboratory Result Diagrams: 03/18/18 13:31 03/18/18 13:31 Lab Statement: Any lab studies that have been ordered have been reviewed, and results considered in the medical decision making process. - CT ABD/PEL CT CT Interpretation Completed By: Radiologist - 1. HEPATOMEGALY. 2. SMALL AMOUNT OF FREE FLUID WITHIN THE PELVIS. Re-Evaluation - Re-Evaluation 1 Re-Evaluation Time: 14:22 Comment: discuss test results and findings, plan to d/c GIGU Course/Dx - Course Assessment/Plan: Patient is a 32-year-old female who presents to the emergency department with chief complaint of right flank pain. The pain has been present for the last 2 days. Patient reports that she has history of kidney stones and the pain is similar as when she had the kidney stones. She reports the pain is 6 out of 10 and nonradiating. Initially the patient was given IV fluids, Zofran for nausea and vomiting and Toradol for the pain. Blood test results without any significant abnormality except for what was a count of 13, hemoglobin 10.5 and hematocrit 31. Abdomin[address]elvic CT impression: Hepatomegaly. Is small amount of free fluid in the pelvis. I offered the patient a pelvic exam however she declined since the patient does have any vaginal discharge or bleeding. At this time I discussed my physical exam, findings and results with the patient and the need to follow-up with primary care physician. The patient understands and agrees. All her concerns were addressed and she has no further questions. Patient will be discharged home with a prescription for naproxen for pain. I believe that her pain is more muscular skeletal pain. - Diagnoses Provider Diagnoses: Flank pain Discharge - Sign-Out/Discharge Documenting (check all that apply): Patient Departure - Discharge Plan Condition: Stable Disposition: HOME Prescriptions: Naproxen [Naproxen 500 mg tab] 500 mg PO BID PRN #20 tablet PRN Reason: Pain Patient Education Materials: Flank Pain (ED) Referrals: [facility] [place] PHYS[facility]IAN REFERRAL [Outside] - 4 Days (PLEASE F/U IN 3-5 DAYS) Additional Instructions: RETURN FOR CHANGING/WORSENING SYMPTOMS
--- NOTE | 2018-03-18 11:59 | RAD ---
CLINICAL HISTORY: flank pain COMPARISON: August 02, 2010 TECHNIQUE: Multiple contiguous axial CT scans were obtained of the abdomen and pelvis, without intravenous contrast enhancement. Coronal and sagittal multiplanar reformations are submitted for review. Oral contrast was not administered. FINDINGS: The study is limited by the lack of intravenous contrast. This limits evaluation of the solid organs and vasculature. LUNG BASES: The lung bases are clear. LIVER: Liver is homogeneous in attenuation. Liver measures 20 cm in long axis. BILE DUCTS: There is no intrahepatic or extrahepatic biliary dilatation. GALLBLADDER: The gallbladder is not visualized. Surgical clips are noted in the gallbladder fossa. PANCREAS: The pancreas is normal, without mass or ductal dilatation. SPLEEN: Normal in size and appearance. UPPER GI TRACT: Evaluation of the gastrointestinal tract is limited by incomplete gastric distention. The upper GI tract is unremarkable. SMALL BOWEL AND MESENTERY: The small bowel is normal in contour, course, and caliber. There is no obstruction or dilatation. COLON: The colon is normal in contour, course, caliber. There is no pericolonic inflammatory change. Surgical clips are noted along the cecum. ADRENALS: Normal bilaterally. KIDNEYS: The kidneys are normal in shape, size, contour, and axis. There is no hydronephrosis or nephrolithiasis. BLADDER: The bladder is incompletely distended but is grossly normal. PELVIC ORGANS: The uterus and adnexa are grossly normal for technique. AORTA: The aorta is normal. IVC: Unremarkable LYMPH NODES: There is no lymphadenopathy by size criteria. ABDOMINAL WALL: There is no evidence for abdominal wall hernia. BONES AND SOFT TISSUES: Unremarkable OTHER: There is a small amount of free fluid within the pelvis. IMPRESSION: 1. HEPATOMEGALY. 2. SMALL AMOUNT OF FREE FLUID WITHIN THE PELVIS.
[2018-03-18 13:41] LABS: ABS Basophils 0 10^3/ul (0-0.2); ABS Eosinophils 0 10^3/ul (0-0.6); ABS Lymphocytes 3.6 10^3/ul (1.0-4.8); ABS Monocytes 0.8 10^3/ul (0-0.8); ABS Neutrophils 8.6 10^3/ul (1.5-7.7); ABS Nucleated RBC 0 10^3/ul; Eosinophil % 0 % (0-6); Hematocrit 31 % (35-47); Hemoglobin 10.5 g/dl (12.0-16.0); Mean Corpuscular HGB Conc 33 g/dl (31-36); Mean Corpuscular Hemoglobin 27 pg (27-31); Mean Corpuscular Volume 82 fL (80-97); Mean Platelet Volume 7.9 um3 (7.4-10.4); Nucleated Red Blood Cells % 0; Platelet Count 391 10^3/ul (150-450); Red Blood Count 3.84 10^6/ul (4.00-5.40); Red Cell Distribution Width 14 % (10.5-15)
[2018-03-18 14:08] LABS: EGFR Non-African American 75.9 (>60)
[2018-03-18] MEDS ORDERED: Cyclobenzaprine TAB* 10 MG PO ONE (14:30)
[2018-03-18] MEDS ORDERED: Acetaminophen TAB* 325 MG PO ONE (14:30)
[2018-03-18 15:00] LABS: Urine Appearance Cloudy; Urine Blood Negative (Negative); Urine Color Yellow; Urine Ketones Negative (Negative); Urine Protein Negative (Negative); Urine Specific Gravity 1.029 (1.010-1.030); Urine Urobilinogen Negative (Negative)
[2018-03-18 15:49] VITALS: BP 102/60
== END 2018-03-18 15:55 | disposition home or self-care (01) ==
LOC: ED 11:03
DX: R10.9 Unspecified abdominal pain (principal); R16.0 Hepatomegaly, not elsewhere classified; Z87.442 Personal history of urinary calculi; Z88.8 Allergy status to other drugs, medicaments and biological substances
CPT/HCPCS: 36415; 74176; 80053; 81003; 83690; 85025; 86140; 96374; 96375; 99283; A9270-GY; J1885; J2405

== ENCOUNTER 2018-05-10 14:44 | Emergency (ER) | payer OTHER ==
--- NOTE | 2018-05-10 15:46 | ED ---
Skin Complaint - HPI Summary HPI Summary: Patient presents for recheck of right upper extremity abscess. She reports this started a few days ago and she's been following with [facility]. It appears to be getting better however does still red so she just wanted to have a medical provider reassess the area to make sure she didn't need any further intervention. She denies fevers, chills, numbness, tingling, weakness, drainage. She admits she used Sherie recently, relapsing from her sobriety, however from plans to start rehabilitation in a couple of days. Feels safe at home. Denies SI/HI. - History of Current Complaint Chief Complaint: EDRashSkinAbscess Time Seen by Provider: 05/10/18 15:40 Stated Complaint: MHE Hx Obtained From: Patient Hx Last Menstrual Period: 2 MOS Pain Intensity: 0 - Allergy/Home Medications Allergies/Adverse Reactions: Allergies Allergy/AdvReac Type Severity Reaction Status Date / Time glyburide Allergy Hives Verified 03/08/18 12:48 metformin Allergy Hives/Diff. Verified 03/08/18 12:48 Breathing/I tching metronidazole [From Flagyl] Allergy Tingling Verified 03/08/18 12:48 nitrofurantoin Allergy Tingling Verified 03/08/18 12:48 [From Macrobid] PMH/Surg Hx/FS Hx/Imm Hx Previously Healthy: Yes Endocrine/Hematology History: Reports: Hx Diabetes - history gestational diabetes Cardiovascular History: Reports: Other Cardiovascular Problems/Disorders - murmur Denies: Hx Hypertension Respiratory History: Reports: Hx Asthma GI History: Reports: Other GI Disorders - hep C Psychiatric History: Reports: Hx Anxiety, Hx Substance Abuse - heroin, clean x 6 months, except relapse 08/19/17 - Surgical History Surgery Procedure, Year, and Place: [facility]. right hand sx for cellulitis Infectious Disease History: No Infectious Disease History: Reports: Hx Hepatitis - C Denies: Hx Clostridium Difficile, Hx Human Immunodeficiency Virus (HIV), Hx of Known/Suspected MRSA, Hx Shingles, Hx Tuberculosis, Hx Known/Suspected VRE, Hx Known/Suspected VRSA, History Other Infectious Disease, Traveled Outside the [place] in Last 30 Days - Family History Known Family History: Positive: Cardiac Disease, Hypertension, Diabetes, Renal Disease, Other - lung cancer Negative: Respiratory Disease Family History: lung cancer - Social History Alcohol Use: Occasionally Hx Substance Use: Yes Substance Use Type: Reports: Heroin Substance Use Comment - Amount & Last Used: has been on subutex for last 7 months with GARRETT Smoking Status (MU): Never Smoked Tobacco Review of Systems Constitutional: Negative Negative: Fever, Chills Musculoskeletal: Negative Skin: Other - redness Neurological: Negative Psychological: Normal All Other Systems Reviewed And Are Negative: Yes Physical Exam Triage Information Reviewed: Yes Vital Signs On Initial Exam: Initial Vitals Temp Pulse Resp BP Pulse Ox 97.4 F 88 16 163/74 99 05/10/18 14:45 05/10/18 14:45 05/10/18 14:45 05/10/18 14:45 05/10/18 14:45 Vital Signs Reviewed: Yes Appearance: Positive: Well-Appearing, No Pain Distress, Obese Skin: Positive: Warm, Skin Color Reflects Adequate Perfusion, Dry - focal erythema about the Rt inner bicep - no induration, NTTP, no streaking, no pustules or vesicles, no fever Head/Face: Positive: Normal Head/Face Inspection Eyes: Positive: EOMI ENT: Positive: Hearing grossly normal Cardiovascular: Positive: Pulses are Symmetrical in both Upper and Lower Extremities Musculoskeletal: Positive: Normal, Strength/ROM Intact Neurological: Positive: Normal, Sensory/Motor Intact, Alert, Oriented to Person Place, Time, CN Intact II-III Psychiatric: Positive: Normal - denies SI/HI Diagnostics - Vital Signs Vital Signs Temp Pulse Resp BP Pulse Ox 05/10/18 14:45 97.4 F 88 16 163/74 99 - Laboratory Lab Statement: Any lab studies that have been ordered have been reviewed, and results considered in the medical decision making process. Course/Dx - Course Course Of Treatment: cellulitis appears to be healing - continue tx as advised by GARRETT and f/u as directed. Return to ED for danger s/sx. Declines social work consult - feels good about plan to go to rehab in 2 days. Pt agrees w/ plan. - Diagnoses Provider Diagnoses: Cellulitis of right arm Discharge - Sign-Out/Discharge Documenting (check all that apply): Patient Departure - Discharge Plan Condition: Stable Disposition: HOME Patient Education Materials: Cellulitis (ED) Referrals: [facility] [Outside] Additional Instructions: Continue care plan as directed *If you develop fever, chills, stiffness, swelling or streaking, seek medical attention sooner - Billing Disposition and Condition Condition: STABLE Disposition: Home
[2018-05-10 16:18] VITALS: BP 156/82
== END 2018-05-10 16:15 | disposition home or self-care (01) ==
LOC: ED 14:44
DX: L03.113 Cellulitis of right upper limb (principal)

== ENCOUNTER 2018-06-16 10:40 | Emergency (ER) | payer OTHER ==
[2018-06-16 11:04] VITALS: BP 160/101
--- NOTE | 2018-06-16 11:13 | UC ---
Throat Pain/Nasal David HPI - HPI Summary HPI Summary: This patient is a 32 year old F presenting to [facility] accompanied by her son with a chief complaint of nasal congestion for the last week. The patient rates the pain 0/10 in severity. Symptoms alleviated by dayquil. She also c/o erythema below her eyes after using baby wipes to remove her eye liner. - History of Current Complaint Chief Complaint: UCRespiratory Stated Complaint: URI Time Seen by Provider: 06/16/18 11:06 Hx Obtained From: Patient Hx Last Menstrual Period: 05/13/18 Onset/Duration: Lasting Weeks, Still Present Severity: Mild Pain Intensity: 0 Pain Scale Used: 0-10 Numeric Associated Signs & Symptoms: Positive: Negative - fever, Other - redness under the eyes - Allergies/Home Medications Allergies/Adverse Reactions: Allergies Allergy/AdvReac Type Severity Reaction Status Date / Time glyburide Allergy Hives Verified 06/16/18 11:05 metformin Allergy Hives/Diff. Verified 06/16/18 11:05 Breathing/I tching metronidazole [From Flagyl] Allergy Tingling Verified 06/16/18 11:05 nitrofurantoin Allergy Tingling Verified 06/16/18 11:05 [From Macrobid] Home Medications: Home Medications D-Methorphan/PE/Acetaminophen [Gnp Day Time Cold/Flu Rel] 1 liq PO BID PRN 06/16 [History Confirmed 06/16/18] PMH/Surg Hx/FS Hx/Imm Hx - Additional Past Medical History Additional PMH: obesity Endocrine History: Diabetes Respiratory History: Asthma Other History Of: Hepatitis C - Surgical History Surgical History: Yes Surgery Procedure, Year, and Place: appy. [facility]. right hand sx for cellulitis - Family History Known Family History: Positive: Cardiac Disease, Hypertension, Diabetes, Renal Disease, Other - lung cancer Negative: Respiratory Disease Family History: lung cancer - Social History Alcohol Use: Occasionally Substance Use Type: Heroin Substance Use Comment - Amount & Last Used: is on subutex Smoking Status (MU): Never Smoked Tobacco Household Exposure Type: Cigarettes - Immunization History Most Recent Influenza Vaccination: Declined in office Most Recent Pneumonia Vaccination: Uknown Review of Systems Constitutional: Negative - fever Skin: Other - redness ENT: Sinus Congestion All Other Systems Reviewed And Are Negative: Yes Physical Exam - Summary Physical Exam Summary: VITAL SIGNS: Reviewed. GENERAL: Patient is a well-developed and nourished female who is lying comfortable in the stretcher. Patient is not in any acute respiratory distress. HEAD AND FACE: Normocephalic EYES: PERRLA, EOMI x 2. EARS: Hearing grossly intact. MOUTH: pharyngeal erythema NECK: Supple, trachea is midline, no adenopathy, no JVD, no carotid bruit. CHEST: Symmetric, no tenderness at palpation LUNGS: Clear to auscultation bilaterally. No wheezing or crackles. CVS: Regular rate and rhythm, S1 and S2 present, no murmurs or gallops appreciated. ABDOMEN: Soft, non-tender. Bowel sounds are normal. No abdominal abnormal pulsations. EXTREMITIES: Full ROM in all major joints, no edema, no cyanosis or clubbing. NEURO: Alert and oriented x 3. No acute neurological deficits. Speech is normal and follows commands. SKIN: Dry and warm Triage Information Reviewed: Yes Vital Signs: Initial Vital Signs Temp 96.9 F 06/16/18 10:59 Pulse 86 06/16/18 10:59 Resp 16 06/16/18 10:59 BP 160/101 06/16/18 10:59 Pulse Ox 98 06/16/18 10:59 Vital Signs Reviewed: Yes Throat Pain/Nasal Course/Dx - Course Course Of Treatment: Patient is a 32-year-old female who presents to the urgent care with a chief complaint of having runny nose, nasal congestion, dry cough for the last couple days. Patient denies any fever, denies any difficulty swallowing or sore throat. Patient reports that she is taking NyQuil and DayQuil and the symptoms are improving. Patient has no other complaints. Physical exam within normal limits. The patient was discharged home with follow -up with PCP. She was asked to return to the urgent care if she develops any fever, sore throat, productive cough, worsening of symptoms or any other complaint. She understands and agrees. She is hemodynamically stable alert and oriented 3. Assessment/Plan: BP noted and patient advised to f/u with pcp. - Differential Dx/Diagnosis Provider Diagnoses: URI viral. elevated BP without prior dx of HTN Discharge - Sign-Out/Discharge Documenting (check all that apply): Patient Departure All imaging exams completed and their final reports reviewed: No Studies - Discharge Plan Condition: Improved Disposition: HOME Patient Education Materials: Upper Respiratory Infection (ED) Referrals: [facility] [Outside] No Primary Care Phys,NOPCP [Primary Care Provider] - Additional Instructions: Take Acetaminophen or ibuprofen for pain or fever Increase your fluid intake Return to the or go to the emergency department if symptoms worsen Follow-up with primary care physician in next 2-3 days - Billing Disposition and Condition Condition: IMPROVED Disposition: Home - Attestation Statements Document Initiated by Scribe: Yes Documenting Scribe: Derick Brizuela Provider For Whom Adriana is Documenting (Include Credential): Wenceslao Lockett MD Scribe Attestation: Derick Starks , scribed for Wenceslao Lockett MD on 06/16/18 at 1126. Scribe Documentation Reviewed: Yes Provider Attestation: The documentation as recorded by the Derick rocha accurately reflects the service I personally performed and the decisions made by Wenceslao dougherty MD
== END 2018-06-16 11:30 | disposition home or self-care (01) ==
LOC: UCEAST 10:40
DX: J06.9 Acute upper respiratory infection, unspecified (principal); R03.0 Elevated blood-pressure reading, without diagnosis of hypertension; E11.9 Type 2 diabetes mellitus without complications; J45.909 Unspecified asthma, uncomplicated; Z88.1 Allergy status to other antibiotic agents; Z88.8 Allergy status to other drugs, medicaments and biological substances
CPT/HCPCS: 99211; G0463

== ENCOUNTER 2019-01-08 05:19 | Emergency (ER) | payer OTHER ==
--- NOTE | 2019-01-08 05:36 | ED ---
Abdominal Pain/Female - HPI Summary HPI Summary: Pt. is a 33 y.o female who presents to the ER for pelvic pain, vaginal bleeding. Pt. states she believes she is . Pt. states she took a home test about two weeks ago and friend states lines were faintly positive. Pt. states she started having pelvic pain and vaginal bleeding two days ago. She notes bleeding is improving. Pt. believes last menstrual cycle was 1-2 months ago. Hx of gestational diabetes, preeclampsia. Pt. notes she is currently homeless. Sxs are moderate in severity. Pt. has not yet seen an OB for potential . Pt. notes 7 other pregnancies. Hx of appendectomy and cholecystectomy. - History of Current Complaint Chief Complaint: EDAbdPain Stated Complaint: POSS MISCARRIAGE PER EMS Time Seen by Provider: 01/08/19 05:35 Hx Obtained From: Patient Hx Last Menstrual Period: 05/13/18 Pain Intensity: 10 Allergies/Adverse Reactions: Allergies Allergy/AdvReac Type Severity Reaction Status Date / Time glyburide Allergy Hives Verified 06/16/18 11:05 metformin Allergy Hives/Diff. Verified 06/16/18 11:05 Breathing/I tching metronidazole [From Flagyl] Allergy Tingling Verified 06/16/18 11:05 nitrofurantoin Allergy Tingling Verified 06/16/18 11:05 [From Macrobid] PMH/Surg Hx/FS Hx/Imm Hx Previously Healthy: Yes Endocrine/Hematology History: Reports: Hx Diabetes - history gestational diabetes Cardiovascular History: Reports: Other Cardiovascular Problems/Disorders - murmur Denies: Hx Hypertension Respiratory History: Reports: Hx Asthma GI History: Reports: Other GI Disorders - hep C Psychiatric History: Reports: Hx Anxiety, Hx Substance Abuse - heroin, clean x 6 months, except relapse 08/19/17 - Surgical History Surgery Procedure, Year, and Place: [facility]. [facility]. right hand sx for cellulitis Infectious Disease History: No Infectious Disease History: Reports: Hx Hepatitis - C Denies: Hx Clostridium Difficile, Hx Human Immunodeficiency Virus (HIV), Hx of Known/Suspected MRSA, Hx Shingles, Hx Tuberculosis, Hx Known/Suspected VRE, Hx Known/Suspected VRSA, History Other Infectious Disease, Traveled Outside the [place] in Last 30 Days - Family History Known Family History: Positive: Cardiac Disease, Hypertension, Diabetes, Renal Disease, Other - lung cancer Negative: Respiratory Disease Family History: lung cancer - Social History Occupation: Unemployed Lives: With Family - homeless Alcohol Use: Occasionally Hx Substance Use: Yes Substance Use Type: Reports: Heroin Substance Use Comment - Amount & Last Used: is on subutex Smoking Status (MU): Never Smoked Tobacco Review of Systems Constitutional: Negative Negative: Fever, Chills Cardiovascular: Negative Respiratory: Negative Positive: Abdominal Pain. Negative: Vomiting, Diarrhea, Nausea, Other Genitourinary: Other - vaginal bleeding Neurological: Negative All Other Systems Reviewed And Are Negative: Yes Physical Exam Triage Information Reviewed: Yes Vital Signs On Initial Exam: Initial Vitals Temp Pulse Resp BP Pulse Ox 98.3 F 90 18 169/94 97 01/08/19 05:23 01/08/19 05:23 01/08/19 05:23 01/08/19 05:23 01/08/19 05:23 Vital Signs Reviewed: Yes Appearance: Positive: Well-Appearing - Pt. lying on bed in NAD. Friend present. Skin: Positive: Warm, Dry Head/Face: Positive: Normal Head/Face Inspection Eyes: Positive: Normal, EOMI, NOHEMI Neck: Positive: Supple Respiratory/Lung Sounds: Positive: Clear to Auscultation, Breath Sounds Present Cardiovascular: Positive: Normal, RRR Abdomen Description: Positive: Other: - Obese. Abd. is soft without tenderness. Neurological: Positive: Normal, CN Intact II-III Psychiatric: Positive: Affect/Mood Appropriate Diagnostics - Vital Signs Vital Signs Temp Pulse Resp BP Pulse Ox 01/08/19 05:23 98.3 F 90 18 169/94 97 - Laboratory Result Diagrams: 01/08/19 05:58 01/08/19 05:58 Lab Statement: Any lab studies that have been ordered have been reviewed, and results considered in the medical decision making process. Abdominal Pain Fem Course/Dx - Course Course Of Treatment: Pt. presenting for pelvic pain and vaginal bleeding. She believes she is . Pt. c/o all this pain but on exam she has no reproducible pain. Will check basic labs and u/a. Pt. has a hx of heroin use and is currently on suboxone. Reportedly from pt.'s nurse she used heroin a few days ago. Blood work is unremarkable. Negative . Will give toradol for pain. Results discussed. Pt. still c/o lower abd. pain. She does have hx of ovarian cyst. Pelvic was performed and cultures obtained, exam relatively unremarkable other than small amount of brownish blood, will wait for cultures to treat. Will obtain pelvic u/s to evaluate ovaries and flow. Suspect pain is secondary to dysmenorrhea. U/S negative for acute findings per radiology. Will dc home with rx for naproxen. Pt. given f.u with [facility] for close f.u. Will call if cultures are positive. Pt. to return to ER if symptoms change or worsen. - Diagnoses Differential Diagnosis: Positive: Ectopic , Pelvic Inflammatory Disease , , Urinary Tract Infection Provider Diagnoses: Dysmenorrhea Discharge - Sign-Out/Discharge Documenting (check all that apply): Patient Departure Patient Received Moderate/Deep Sedation with Procedure: No - Discharge Plan Condition: Good Disposition: HOME Prescriptions: Azithromycin 1 gm PO ONCE #1 packet Naproxen [Naproxen 500 mg tab] 500 mg PO BID #20 tablet Patient Education Materials: Dysmenorrhea (ED) Referrals: Keshia Hernandez MD [Medical Doctor] - Additional Instructions: Call Dr. Hernandez's office for a follow up appointment Naproxen as directed for pain Return to ER if symptoms change or worsen - Billing Disposition and Condition Condition: GOOD Disposition: Home
[2019-01-08 06:05] LABS: ABS Lymphocytes 1.3 10^3/ul (1.0-4.8); ABS Monocytes 0.5 10^3/ul (0-0.8); ABS Neutrophils 4.4 10^3/ul (1.5-7.7); Eosinophil % 0.3 %; Hematocrit 37 % (35-47); Hemoglobin 12.2 g/dL (12.0-16.0); Lymphocyte % 21.3 %; Mean Corpuscular HGB Conc 33 g/dL (31-36); Mean Corpuscular Hemoglobin 28 pg (27-31); Mean Corpuscular Volume 84 fL (80-97); Mean Platelet Volume 8.2 fL (7.4-10.4); Nucleated Red Blood Cells % 0.1; Platelet Count 217 10^3/uL (150-450); Red Blood Count 4.35 10^6 /uL (3.70-4.87); Red Cell Distribution Width 14 % (10.5-15); White Blood Count 6.3 10^3/uL (3.5-10.8)
[2019-01-08] MEDS ORDERED: Acetaminophen TAB* 325 MG PO ONE (06:10)
[2019-01-08 06:17] LABS: Albumin 4.4 g/dL (3.2-5.2); Anion Gap 13 mmol/L (2-11); CO2 Carbon Dioxide 21 mmol/L (22-32); Calcium 9.6 mg/dL (8.6-10.3); Chloride 105 mmol/L (101-111); Potassium 3.6 mmol/L (3.5-5.0); Sodium 139 mmol/L (135-145)
[2019-01-08 06:23] LABS: ALT 12 U/L (7-52); AST 15 U/L (13-39); Albumin/Globulin Ratio 1.3 (1-3); Alkaline Phosphatase 49 U/L (34-104); BUN/Creatinine Ratio 10.3 (8-20); Blood Urea Nitrogen 9 mg/dL (6-24); EGFR African American 91.3 (>60); EGFR Non-African American 75.5 (>60); Globulin 3.3 g/dL (2-4); Glucose 70 mg/dL (70-100); Total Protein 7.7 g/dL (6.4-8.9)
[2019-01-08 06:29] LABS: HCG Pregnancy < 0.60 mIU/mL
[2019-01-08] MEDS ORDERED: Ketorolac INJ* 60 MG/2 ML VIAL IM ONE (07:00)
[2019-01-08 08:03] LABS: Urine Appearance Clear; Urine Bacteria Absent (Absent); Urine Bilirubin Negative (Negative); Urine Blood 3+ (Negative); Urine Color Yellow; Urine Glucose Negative (Negative); Urine Ketones Negative (Negative); Urine Nitrite Negative (Negative); Urine Protein Negative (Negative); Urine Red Blood Cell Trace(0-2/hpf) (Absent); Urine Specific Gravity 1.008 (1.010-1.030); Urine Squamous Epithelial Cell Present (Absent); Urine Urobilinogen Negative (Negative); Urine White Blood Cell Trace(0-5/hpf) (Absent)
[2019-01-08 09:06] VITALS: BP 122/67
[2019-01-08 14:09] LABS: Neisseria gonorrhoeae (GC) RNA Negative (Negative)
[2019-01-08 14:14] LABS: Trichomonas vaginalis Result Positive (Negative)
--- NOTE | 2019-01-08 14:37 | PN ---
Progress Note - Progress Note Date of Service: 01/08/19 Note: Pt. seen in ED earlier today for pelvic pain and vaginal bleeding. Pelvic cultures positive for chlamydia and trichomoniasis. Attempted to call pt. around 1430 and again at 1600, but her phone states pt. is 'unavailable at this time' and there is no voicemail. Attempted to call pt.'s father who number is listed but his phone goes right to voicemail. Rx to azithromycin sent to pt.'s pharmacy. Pt. has flagyl listed as an allergy as 'tingling and tongue swells.' Rx for flagyl not sent at this time. Will send letter for pt. to return call. Will try to call pt. again tomorrow.
== END 2019-01-08 09:06 | disposition home or self-care (01) ==
LOC: ED 05:19
DX: N94.6 Dysmenorrhea, unspecified (principal); F41.9 Anxiety disorder, unspecified; Z59.0 Homelessness
CPT/HCPCS: 36415; 76830; 80053; 81003; 81015; 84702; 85025; 86850; 86900; 86901; 87077; 87086; 87186; 87480; 87491; 87510; 87591; 87661; 96372; 99283; J1885

== ENCOUNTER 2019-06-30 18:35 | Emergency (ER) | payer OTHER ==
[2019-06-30 20:44] VITALS: BP 144/118
[2019-06-30] MEDS ORDERED: Albuterol 2.5 MG/3 ML NEB.SOL* (0.083%) INH ONE (21:06)
--- NOTE | 2019-06-30 21:06 | UC ---
Respiratory Complaint HPI - HPI Summary HPI Summary: 3 DAYS OF SINUS CONGESTION, COUGH, SORE THROAT. NO FEVER, NAUSEA/VOMITING. - History of Current Complaint Chief Complaint: UCRespiratory Stated Complaint: URI Time Seen by Provider: 06/30/19 21:00 Hx Obtained From: Patient Hx Last Menstrual Period: 2 weeks ago Onset/Duration: Gradual Onset, Lasting Days, Still Present Timing: Constant Severity Initially: Moderate Severity Currently: Moderate Pain Intensity: 0 Pain Scale Used: 0-10 Numeric Character: Cough: Productive Aggravating Factors: Nothing Alleviating Factors: Nothing Associated Signs And Symptoms: Positive: URI, Nasal Congestion, Sinus Discomfort - Allergies/Home Medications Allergies/Adverse Reactions: Allergies Allergy/AdvReac Type Severity Reaction Status Date / Time Fish Containing Products Allergy itching, Verified 06/30/19 20:45 swelling, hives, dyspnea glyburide Allergy Hives Verified 06/30/19 20:44 metformin Allergy Hives/Diff. Verified 06/30/19 20:44 Breathing/I tching metronidazole [From Flagyl] Allergy Tingling Verified 06/30/19 20:44 nitrofurantoin Allergy Tingling Verified 06/30/19 20:44 [From Macrobid] Home Medications: Home Medications D-Methorphan/PE/Acetaminophen [Vicks Dayquil Liquid] 1 liq PO ONCE PRN 06/30/19 [History Confirmed 06/30/19] DULoxetine DR CAP* [Cymbalta CAP*] 60 mg PO DAILY 06/30/19 [History Confirmed ] traZODone TAB* [Desyrel TAB*] 100 mg PO BEDTIME 06/30/19 [History Confirmed 01/11] PMH/Surg Hx/FS Hx/Imm Hx Respiratory History: Asthma Psychological History: Anxiety, Depression Other History Of: Hepatitis C - Surgical History Surgical History: Yes Surgery Procedure, Year, and Place: appendix. cholecystectomy. right hand sx for cellulitis - Family History Known Family History: Positive: Cardiac Disease, Hypertension, Diabetes, Renal Disease, Other - lung cancer Negative: Respiratory Disease Family History: lung cancer - Social History Alcohol Use: None Substance Use Type: Other Substance Use Comment - Amount & Last Used: is on subutex Smoking Status (MU): Never Smoked Tobacco Household Exposure Type: Cigarettes - Immunization History Most Recent Influenza Vaccination: Declined in office Most Recent Pneumonia Vaccination: Uknown Review of Systems All Other Systems Reviewed And Are Negative: Yes Constitutional: Positive: Fatigue ENT: Positive: Sore Throat, Nasal Discharge, Sinus Congestion Respiratory: Positive: Cough Cardiovascular: Positive: Negative Gastrointestinal: Positive: Negative Physical Exam Triage Information Reviewed: Yes Appearance: Well-Appearing, No Pain Distress, Well-Nourished Vital Signs: Initial Vital Signs Temp 98.4 F 06/30/19 20:40 Pulse 87 06/30/19 20:40 Resp 16 06/30/19 20:40 BP 144/118 06/30/19 20:40 Pulse Ox 97 06/30/19 20:40 Vital Signs Reviewed: Yes Eyes: Positive: Conjunctiva Clear ENT: Positive: Hearing grossly normal, Pharyngeal erythema, TMs normal. Negative: Tonsillar swelling, Tonsillar exudate Neck: Positive: Supple, Nontender, No Lymphadenopathy Respiratory Exam: Normal Cardiovascular Exam: Normal Abdomen Description: Positive: Soft Musculoskeletal: Positive: No Edema Neurological: Positive: Alert Psychological: Positive: Age Appropriate Behavior Skin: Negative: Rashes Respiratory Course/Dx - Course Course Of Treatment: PATIENT WITH PROBABLE VIRAL URI. NO INDICATION FOR ANTIBIOTICS AT PRESENT. WILL TREAT WITH PREDNISONE AND HAVE REFILLED HER ALBUTEROL INHALER. OTC AFRIN FOR NASAL CONGESTION. PATIENT REQUESTED AN ALBUTEROL NEBULIZER TREATMENT IN THE UC AND DID FEEL IMPROVED AFTERWARDS. - Differential Dx/Diagnosis Provider Diagnosis: Upper respiratory infection Discharge ED - Sign-Out/Discharge Documenting (check all that apply): Patient Departure All imaging exams completed and their final reports reviewed: No Studies - Discharge Plan Condition: Stable Disposition: HOME Prescriptions: Albuterol HFA INHALER* [Ventolin HFA Inhaler*] 2 puff INH Q4H PRN #1 mdi PRN Reason: Shortness Of Breath predniSONE TAB* [Deltasone TAB*] 50 mg PO DAILY #5 tab Patient Education Materials: Upper Respiratory Infection (ED) Referrals: [facility] [Outside] - If Needed Additional Instructions: YOUR SYMPTOMS ARE LIKELY VIRALLY MEDIATED AND SHOULD RESOLVE ON THEIR OWN WITH TIME. NO INDICATION FOR ANTIBIOTICS AT PRESENT. REST, HYDRATE, OTC MEDS NEEDED. WILL TREAT WITH PREDNISONE TO HELP WITH AIRWAY INFLAMMATION AND REFILL YOUR INHALER. SEEK FOLLOW-UP IF YOU ARE NOT IMPROVING OVER THE NEXT 1-2 WEEKS. USE OTC AFRIN FOR NASAL CONGESTION. 2 SPRAYS IN EACH NOSTRIL TWICE DAILY NEEDED. DO NOT USE FOR MORE THAN 3-4 DAYS IN A ROW TO PREVENT DEVELOPING REBOUND CONGESTION. CALL THE NUMBER BELOW FOR ASSISTANCE IN ESTABLISHING WITH A PCP An additional resource available to assist in finding the appropriate physician for your health care needs is the [facility] ([facility]). You may contact them by calling [phone]. - Billing Disposition and Condition Condition: STABLE Disposition: Home
== END 2019-06-30 21:39 | disposition home or self-care (01) ==
LOC: UCEAST 18:35
DX: J06.9 Acute upper respiratory infection, unspecified (principal); Z88.1 Allergy status to other antibiotic agents; Z91.013 Allergy to seafood; Z88.8 Allergy status to other drugs, medicaments and biological substances
CPT/HCPCS: 99212; G0463

== ENCOUNTER 2020-09-14 09:29 | Inpatient (IN) ==
[2020-09-14] MEDS ORDERED: ceFOXitin 2 GM IVPREMIX 2 GM/50 ML BAG ONE (10:34)
[2020-09-14] MEDS ORDERED: Lactated Ringers 1000 ml BAG 1,000 ML IV ONE (10:36)
[2020-09-14] MEDS ORDERED: Sodium Citrate/Citric Acid LIQ 15 ML UDC PO ONE (10:36)
[2020-09-14] MEDS ORDERED: Buffered Lidocaine 1% SYRIN 1 ml INTRADERM ONE (10:36)
[2020-09-14] MEDS ORDERED: ceFOXitin 2 GM IVPREMIX 2 GM/50 ML BAG IVPB ONE (10:36)
[2020-09-14] MEDS ORDERED: Lactated Ringers 1000 ml BAG 1,000 ML IV SCH (11:00)
[2020-09-14] MEDS ORDERED: Ondansetron 4 mg VIAL 2 MG/ML 2 ml VIAL IV PRN (11:21)
[2020-09-14] MEDS ORDERED: Naloxone 0.4 mg VIAL 0.4 mg/ml 1 ml VIAL IV PRN ×2 (11:21→11:45)
[2020-09-14] MEDS ORDERED: Naloxone 4 mg VIAL (10 ml) 2 MG in NS 0.9% 250 ml 250 ML IV PRN (11:21)
[2020-09-14] MEDS ORDERED: fentaNYL 100 mcg/2 ml 50 MCG/ML VIAL IV PRN (11:45)
[2020-09-14 12:11] LABS: Urine Benzodiazepine Screen None Detected (None Detect); Urine Buprenorphine Screen Presumptive Positive (None Detect); Urine Cannabinoids Screen None Detected (None Detect); Urine Fentanyl Screen Presumptive Positive (None Detect); Urine Hydrocodone Screen None Detected (None Detect); Urine Opiates Screen None Detected (None Detect)
[2020-09-14] MEDS ORDERED: Glycerin ADULT 2.4 gm SUPP PR PRN (12:11)
[2020-09-14] MEDS ORDERED: Dibucaine 1% OINT 28.35 GM TUBE PR PRN (12:11)
[2020-09-14] MEDS ORDERED: Witch Hazel PAD JAR TOPICAL PRN (12:11)
[2020-09-14] MEDS ORDERED: Oxytocin in LR 20 UNITS/1,000 ML BAG IVPB SCH (13:00)
[2020-09-14 13:06] LABS: Urine Appearance Cloudy; Urine Bilirubin Negative (Negative); Urine Blood Negative (Negative); Urine Color Amber; Urine Glucose 1+(50 mg/dL) (Negative); Urine Ketones 1+ (Negative); Urine Nitrite Negative (Negative); Urine Protein 3+(>=500 mg/dL) (Negative); Urine Specific Gravity 1.016 (1.010-1.030); Urine Urobilinogen Negative (Negative)
[2020-09-14 13:26] LABS: Urine Benzodiazepine Screen None Detected (None Detect); Urine Cannabinoids Screen None Detected (None Detect); Urine Opiates Screen None Detected (None Detect)
[2020-09-14 14:19] LABS: Urine Bacteria Absent (Absent); Urine Red Blood Cell Absent (Absent); Urine Squamous Epithelial Cell Present (Absent); Urine White Blood Cell Trace(0-5/hpf) (Absent)
[2020-09-14] MEDS ORDERED: RHO D Immune Globulin (HUMAN) 300 MCG = 1,500 I.U. INJ IM ONE (14:27)
[2020-09-15 05:01] LABS: Hematocrit 26 % (35-47); Hemoglobin 8.7 g/dL (12.0-16.0); Mean Corpuscular HGB Conc 34 g/dL (31-36); Mean Corpuscular Hemoglobin 29 pg (27-31); Mean Corpuscular Volume 86 fL (80-97); Mean Platelet Volume 8.3 fL (7.4-10.4); Platelet Count 358 10^3/uL (150-450); Red Blood Count 3.03 10^6 /uL (3.70-4.87); Red Cell Distribution Width 14 % (10-15); White Blood Count 31.7 10^3/uL (3.5-10.8)
[2020-09-15 05:53] LABS: ABS Lymphocytes 1.2 10^3/ul (1.0-4.8); ABS Monocytes 0.8 10^3/ul (0-0.8); ABS Neutrophils 29.6 10^3/ul (1.5-7.7); Eosinophil % 0.1 %; Lymphocyte % 3.9 %
[2020-09-15] MEDS ORDERED: Measles, Mumps,Rubella VACC 0.5 ML/VIAL SUBCUT ONE (09:00)
[2020-09-16] MEDS ORDERED: Influenza VAC *QUAD* 2020-21* 0.5 ML SYRINGE IM ONE (09:00)
[2020-09-16] MEDS ORDERED: medroxyPROGESTERone ACETATE 150 MG/ML VIAL IM ONE (12:00)
[2020-09-16] MEDS ORDERED: RHO D Immune Globulin (HUMAN) 300 MCG = 1,500 I.U. INJ IM ONE (18:02)
[2020-09-17] MEDS ORDERED: diPHENhydraMINE 25 mg TAB PO ONE (16:45)
[2020-09-17] MEDS ORDERED: Tetan/Diph/Pertus SYR(Tdap) 0.5 ML SYR(BOOSTRIX) use SYR contains LATEX IM ONE (17:01)
[2020-09-18 07:56] VITALS: BP 123/63
== END 2020-09-18 13:30 | disposition home or self-care (01) | DRG 540 ==
LOC: MCHOBOUT 09:29 → MCHOB 09:53
PROVIDERS: ADMIT Obstetrics & Gynecology; ATTEND Obstetrics & Gynecology

== ENCOUNTER 2023-04-19 21:11 | Inpatient (IN) ==
[2023-04-20] MEDS ORDERED: NORMOSOL-R pH 7.4 SEPSIS* BAG 2,190 ML IV ONE (02:22)
[2023-04-20] MEDS ORDERED: Vancomycin 1,000 MG in NS 0.9% 250 ml 250 ML IVPB ONE (04:30)
[2023-04-20 04:39] LABS: Hematocrit 29.8 % (35-45); Hemoglobin 9.9 g/dL (11.5-14.3); Mean Corpuscular Hemoglobin 24.8 pg (27-33); Mean Corpuscular Hgb Conc 33.2 g/dL (31-36); Mean Corpuscular Volume 74.8 fL (80-97); Mean Platelet Volume 8.5 fL (7.5-11.2); Platelet Count 221 10^3/uL (150-450); Red Blood Count 3.99 10^6/uL (3.63-4.92); Red Cell Distribution Width 15.8 % (12-17); White Blood Count 14.1 10^3/uL (3.8-11.8)
[2023-04-20 04:48] LABS: Activated Partial Thrombo Time 29.4 seconds (26.0-38.0); INR 1.16 (0.83-1.13)
[2023-04-20 04:50] LABS: Albumin 3.4 g/dL (3.2-5.2); Albumin/Globulin Ratio 0.9 (1-3); C Reactive Protein 232.74 mg/L (<8.01); Calcium 9.5 mg/dL (8.6-10.3); Creatinine, Serum 1.25 mg/dL (0.51-0.95); Globulin 3.9 g/dL (2-4); Potassium 2.8 mmol/L (3.5-5.0); Total Bilirubin 0.5 mg/dL (0.2-1.0); Total Protein 7.3 g/dL (6.4-8.9); eGFR CKD-EPI 57.3 (>60)
[2023-04-20] MEDS ORDERED: Vancomycin per Pharmacy 1 EA NOTE FOLLOW UP SCH (05:00)
[2023-04-20 05:01] LABS: Magnesium 1.7 mg/dL (1.9-2.7)
[2023-04-20] MEDS ORDERED: Magnesium Sulfate 2 gm BAG 2 GM/50 ML BAG IVPB ONE (05:17)
[2023-04-20] MEDS ORDERED: levETIRAcetam 1000MG IVPREMIX 1,000 MG/100 ML BAG IVPB ONE (05:22)
[2023-04-20] MEDS ORDERED: Iodixanol (CONTRAST) 320 MG/ML 100 ML SDV IV ONE (05:28)
[2023-04-20 05:31] LABS: ABS Basophils 0.1 10^3/uL (0.0-0.1); ABS Eosinophils 0.1 10^3/uL (0.0-0.5); ABS Lymphocytes 1.2 10^3/uL (1.0-4.8); ABS Monocytes 1.1 10^3/uL (0.0-0.9); ABS Neutrophils 11.7 10^3/uL (1.5-7.6); Eosinophil % 0.5 %; Lymphocyte % 8.4 %
[2023-04-20] MEDS ORDERED: Morphine 10 MG/ML VIAL (1 ml) IM ONE (06:31)
[2023-04-20] MEDS: HYDROmorphone 1 MG/1 ML SYRINGE IV SLOW PU PRN ×4 (07:56→22:31)
[2023-04-20] MEDS: Enoxaparin 40 MG/0.4 ML SYR SUBCUT SCH (07:56)
[2023-04-20] MEDS: Potassium Chlor 20 meq TAB.ER PO SCH ×3 (07:56→14:15)
[2023-04-20 12:46] LABS: HIV 4th Generation Nonreactive (Nonreactive)
[2023-04-20] MEDS: Lidocaine PATCH 5% PATCH TRANSDERM SCH (16:33)
[2023-04-20] MEDS: Ondansetron 4 mg VIAL 2 MG/ML 2 ml VIAL IV PRN (19:39)
[2023-04-20] MEDS: Vancomycin 1000 MG in NS 0.9% 250 ML IVPB SCH (20:31)
[2023-04-20] MEDS ORDERED: Calcium Carb (TUMS) 500 mg CHEW TAB PO ONE (22:08)
[2023-04-20] MEDS: Acetaminophen IV 1 GM/100ML 1,000 MG/100 ML BAG IV PRN (22:31)
[2023-04-21] MEDS: HYDROmorphone 1 MG/1 ML SYRINGE IV SLOW PU PRN ×9 (04:13→23:11)
[2023-04-21] MEDS ORDERED: HYDROmorphone 1 MG/1 ML SYRINGE IV SLOW PU ONE (05:43)
[2023-04-21] MEDS: Acetaminophen IV 1 GM/100ML 1,000 MG/100 ML BAG IV PRN ×3 (05:43→22:44)
[2023-04-21] MEDS: Enoxaparin 40 MG/0.4 ML SYR SUBCUT SCH (08:16)
[2023-04-21] MEDS: Lidocaine PATCH 5% PATCH TRANSDERM SCH (08:17)
[2023-04-21] MEDS: Vancomycin 1000 MG in NS 0.9% 250 ML IVPB SCH ×2 (10:06→19:58)
[2023-04-21 11:28] LABS: ABS Basophils 0.1 10^3/uL (0.0-0.1); ABS Eosinophils 0.1 10^3/uL (0.0-0.5); ABS Lymphocytes 0.8 10^3/uL (1.0-4.8); ABS Monocytes 0.9 10^3/uL (0.0-0.9); ABS Neutrophils 13.9 10^3/uL (1.5-7.6); Eosinophil % 0.4 %; Hematocrit 24.6 % (35-45); Hemoglobin 8.2 g/dL (11.5-14.3); Lymphocyte % 5.3 %; Mean Corpuscular Hemoglobin 25.4 pg (27-33); Mean Corpuscular Hgb Conc 33.1 g/dL (31-36); Mean Corpuscular Volume 76.8 fL (80-97); Platelet Count 250 10^3/uL (150-450); Red Blood Count 3.21 10^6/uL (3.63-4.92); Red Cell Distribution Width 16.6 % (12-17); White Blood Count 15.7 10^3/uL (3.8-11.8)
[2023-04-21 11:43] LABS: Calcium 8.9 mg/dL (8.6-10.3); Creatinine, Serum 0.77 mg/dL (0.51-0.95); Magnesium 1.4 mg/dL (1.9-2.7); eGFR CKD-EPI 102.5 (>60)
[2023-04-21] MEDS: COWS Protocol Daily Order Reminder FOLLOW UP SCH (15:01)
[2023-04-21] MEDS: Ondansetron 4 mg VIAL 2 MG/ML 2 ml VIAL IV PRN (21:15)
[2023-04-22] MEDS: HYDROmorphone 1 MG/1 ML SYRINGE IV SLOW PU PRN ×5 (02:06→13:00)
[2023-04-22] MEDS ORDERED: Magnesium Sulf 4 GM/100 ML IV 4,000 MG/100 ML BAG IVPB ONE (08:00)
[2023-04-22] MEDS ORDERED: Vancomycin Trough Check NOTE FOLLOW UP ONE (08:30)
[2023-04-22] MEDS: Enoxaparin 40 MG/0.4 ML SYR SUBCUT SCH (08:35)
[2023-04-22] MEDS: Lidocaine PATCH 5% PATCH TRANSDERM SCH (08:37)
[2023-04-22 08:53] LABS: ABS Eosinophils 0.1 10^3/uL (0.0-0.5); ABS Lymphocytes 1.3 10^3/uL (1.0-4.8); ABS Monocytes 1.2 10^3/uL (0.0-0.9); Eosinophil % 0.5 %; Hematocrit 24.9 % (35-45); Hemoglobin 8.3 g/dL (11.5-14.3); Lymphocyte % 6.6 %; Mean Corpuscular Hemoglobin 25.1 pg (27-33); Mean Corpuscular Hgb Conc 33.2 g/dL (31-36); Mean Corpuscular Volume 75.5 fL (80-97); Mean Platelet Volume 8.1 fL (7.5-11.2); Platelet Count 331 10^3/uL (150-450); Red Blood Count 3.29 10^6/uL (3.63-4.92); Red Cell Distribution Width 16.2 % (12-17); White Blood Count 19.6 10^3/uL (3.8-11.8)
[2023-04-22 09:44] LABS: Calcium 8.6 mg/dL (8.6-10.3); Potassium 4.6 mmol/L (3.5-5.0)
[2023-04-22 09:50] LABS: Creatinine, Serum 0.9 mg/dL (0.51-0.95)
[2023-04-22] MEDS: Vancomycin 1000 MG in NS 0.9% 250 ML IVPB SCH (10:53)
[2023-04-22] MEDS: COWS Protocol Daily Order Reminder FOLLOW UP SCH (13:33)
[2023-04-22 13:58] LABS: Hepatitis C Antibody Reactive (Negative)
[2023-04-22] MEDS: HYDROmorphone 0.5 MG/0.5 ML SYRINGE IV SLOW PU PRN ×3 (17:27→22:15)
[2023-04-22] MEDS: Vancomycin 1,250 MG in NS 0.9% 250 ml 250 ML IVPB SCH (17:28)
[2023-04-22] MEDS: Polyethylene Glycol 3350 17 GM PACKET PO SCH (22:04)
[2023-04-23] MEDS: HYDROmorphone 0.5 MG/0.5 ML SYRINGE IV SLOW PU PRN ×7 (02:32→21:46)
[2023-04-23] MEDS: Vancomycin 1,250 MG in NS 0.9% 250 ml 250 ML IVPB SCH ×2 (06:19→17:23)
[2023-04-23 09:34] LABS: eGFR CKD-EPI 74.9 (>60)
[2023-04-23] MEDS: Lidocaine PATCH 5% PATCH TRANSDERM SCH (09:38)
[2023-04-23] MEDS: Polyethylene Glycol 3350 17 GM PACKET PO SCH ×2 (09:40→21:47)
[2023-04-23] MEDS: Enoxaparin 40 MG/0.4 ML SYR SUBCUT SCH (09:43)
[2023-04-23] MEDS ORDERED: Senna TAB 8.6 mg TAB PO PRN (20:08)
[2023-04-23] MEDS ORDERED: Magnesium Hydroxide LIQ 30 ML UDC PO PRN (20:08)
[2023-04-23] MEDS ORDERED: Polyethylene Glycol 3350 17 GM PACKET PO PRN (20:08)
[2023-04-23] MEDS ORDERED: Gadoteridol (CONTRAST) 279.3 MG/ML 10 ML IV ONE (21:07)
[2023-04-23] MEDS: Magnesium Hydroxide LIQ 30 ML UDC PO SCH (21:47)
[2023-04-24] MEDS ORDERED: Vancomycin Trough Check NOTE FOLLOW UP ONE (05:30)
[2023-04-24] MEDS: HYDROmorphone 0.5 MG/0.5 ML SYRINGE IV SLOW PU PRN ×4 (05:36→14:48)
[2023-04-24 05:57] LABS: Creatinine, Serum 1.02 mg/dL (0.51-0.95); eGFR CKD-EPI 73.1 (>60)
[2023-04-24] MEDS: Vancomycin 1,250 MG in NS 0.9% 250 ml 250 ML IVPB SCH ×2 (06:30→22:45)
[2023-04-24] MEDS: Polyethylene Glycol 3350 17 GM PACKET PO SCH ×2 (08:33→22:45)
[2023-04-24 09:10] LABS: C Reactive Protein 167.19 mg/L (<8.01)
[2023-04-24] MEDS: Magnesium Hydroxide LIQ 30 ML UDC PO SCH ×2 (09:46→22:46)
[2023-04-24] MEDS: Lidocaine PATCH 5% PATCH TRANSDERM SCH (09:46)
[2023-04-24] MEDS: Enoxaparin 40 MG/0.4 ML SYR SUBCUT SCH (09:57)
[2023-04-24] MEDS: Ondansetron 4 mg VIAL 2 MG/ML 2 ml VIAL IV PRN (10:56)
[2023-04-24] MEDS: Acetaminophen IV 1 GM/100ML 1,000 MG/100 ML BAG IV PRN ×2 (10:58→22:46)
[2023-04-24] MEDS ORDERED: ceFAZolin 2 GM in NS PREMIX 2 GM/100 ML BAG IVPB ONE (15:50)
[2023-04-24] MEDS ORDERED: Lidocaine 2% PF 5 ML VIAL ONE (17:00)
[2023-04-24] MEDS ORDERED: Rocuronium 50 mg VIAL 10 mg/ml 5 ml VIAL (50 mg) ONE (17:00)
[2023-04-24] MEDS ORDERED: Propofol 10 MG/ML 20 ML BTL ONE (17:00)
[2023-04-24] MEDS ORDERED: Midazolam 2 mg/2 ml VIAL 1 mg/ml 2 ml VIAL (2 mg) ONE (17:01)
[2023-04-24] MEDS ORDERED: fentaNYL 100 mcg/2 ml 50 MCG/ML VIAL ONE ×2 (17:01→21:16)
[2023-04-24] MEDS ORDERED: Lidocaine 1% w EPI 1:100,000 MDV 20 ML VIAL ONE (18:00)
[2023-04-24] MEDS ORDERED: Ketamine HCL 50 mg/ml 10 ml VIAL (500 MG) ONE (18:45)
[2023-04-24] MEDS ORDERED: Dexamethasone IV 4 MG/ML VIAL 1 ml VIAL ONE (18:55)
[2023-04-24] MEDS ORDERED: Ondansetron 4 mg VIAL 2 MG/ML 2 ml VIAL ONE (18:55)
[2023-04-24] MEDS ORDERED: Naloxone 0.4 mg VIAL 0.4 mg/ml 1 ml VIAL IV PRN (21:07)
[2023-04-24] MEDS ORDERED: Ondansetron 4 mg VIAL 2 MG/ML 2 ml VIAL IV PRN (21:07)
[2023-04-24] MEDS ORDERED: HYDROmorphone 1 MG/1 ML SYRINGE IV PRN (21:07)
[2023-04-24] MEDS: fentaNYL 100 mcg/2 ml 50 MCG/ML VIAL IV PRN ×2 (21:17→21:23)
[2023-04-25] MEDS: HYDROmorphone 0.5 MG/0.5 ML SYRINGE IV SLOW PU PRN ×4 (04:21→22:32)
[2023-04-25] MEDS: Vancomycin 1,250 MG in NS 0.9% 250 ml 250 ML IVPB SCH ×2 (06:14→18:48)
[2023-04-25] MEDS ORDERED: Senna TAB 8.6 mg TAB PO ONE (07:13)
[2023-04-25 08:31] LABS: ABS Lymphocytes 1.3 10^3/uL (1.0-4.8); ABS Monocytes 0.5 10^3/uL (0.0-0.9); ABS Neutrophils 8.5 10^3/uL (1.5-7.6); ABS Nucleated RBC 0.01 10^3/ul; Eosinophil % 0.1 %; Hematocrit 20.7 % (35-45); Hemoglobin 7.1 g/dL (11.5-14.3); Lymphocyte % 12.6 %; Mean Corpuscular Hemoglobin 25.6 pg (27-33); Mean Corpuscular Hgb Conc 34.1 g/dL (31-36); Mean Platelet Volume 7.1 fL (7.5-11.2); Nucleated Red Blood Cells % 0.1 /100 WBC (0.0-0.4); Platelet Count 512 10^3/uL (150-450); Red Blood Count 2.76 10^6/uL (3.63-4.92); Red Cell Distribution Width 16.1 % (12-17); White Blood Count 10.3 10^3/uL (3.8-11.8)
[2023-04-25 08:44] LABS: Creatinine, Serum 1.16 mg/dL (0.51-0.95); Potassium 4.8 mmol/L (3.5-5.0); eGFR CKD-EPI 62.7 (>60)
[2023-04-25] MEDS: Polyethylene Glycol 3350 17 GM PACKET PO SCH ×2 (10:53→22:31)
[2023-04-25] MEDS: Magnesium Hydroxide LIQ 30 ML UDC PO SCH ×2 (10:58→22:32)
[2023-04-25] MEDS: Lidocaine PATCH 5% PATCH TRANSDERM SCH (10:58)
[2023-04-25] MEDS: Enoxaparin 40 MG/0.4 ML SYR SUBCUT SCH (10:59)
[2023-04-25] MEDS ORDERED: Lidocaine 4% TOPICAL 50 ML TOP.SOLN TOPICAL PRN (13:54)
[2023-04-25] MEDS ORDERED: Lidocaine 1% MPF 5 ML VIAL INJ ONE (16:12)
[2023-04-25] MEDS: Acetaminophen IV 1 GM/100ML 1,000 MG/100 ML BAG IV PRN (17:10)
[2023-04-25] MEDS: Senna TAB 8.6 mg TAB PO PRN (19:00)
[2023-04-25] MEDS ORDERED: Naloxone Nasal Spray 4 MG/0.1 ML NASAL.SPR INTRANASAL PRN (19:38)
[2023-04-25] MEDS ORDERED: Gadoteridol (CONTRAST) 279.3 MG/ML 10 ML IV ONE (21:39)
[2023-04-26] MEDS: HYDROmorphone 0.5 MG/0.5 ML SYRINGE IV SLOW PU PRN ×3 (01:57→08:29)
[2023-04-26] MEDS: Acetaminophen IV 1 GM/100ML 1,000 MG/100 ML BAG IV PRN (01:57)
[2023-04-26] MEDS ORDERED: Vancomycin Trough Check NOTE FOLLOW UP ONE (05:30)
[2023-04-26 08:55] LABS: Hematocrit 18.7 % (35-45); Hemoglobin 6.4 g/dL (11.5-14.3); Mean Corpuscular Volume 76.3 fL (80-97); Mean Platelet Volume 6.9 fL (7.5-11.2); Platelet Count 512 10^3/uL (150-450); Red Blood Count 2.45 10^6/uL (3.63-4.92); Red Cell Distribution Width 16.3 % (12-17); White Blood Count 7.6 10^3/uL (3.8-11.8)
[2023-04-26 09:00] LABS: Anion Gap 5 mmol/L (2-16); Blood Urea Nitrogen 24 mg/dL (6-24); CO2 Carbon Dioxide 30 mmol/L (22-32); Calcium 7.8 mg/dL (8.6-10.3); Chloride 104 mmol/L (101-111); Creatinine, Serum 1.07 mg/dL (0.51-0.95); Glucose 74 mg/dL (70-100); Potassium 4.8 mmol/L (3.5-5.0); Sodium 139 mmol/L (135-145)
[2023-04-26 09:17] LABS: ABS Eosinophils 0.1 10^3/uL (0.0-0.5); ABS Lymphocytes 2.1 10^3/uL (1.0-4.8); ABS Monocytes 0.6 10^3/uL (0.0-0.9); ABS Neutrophils 4.8 10^3/uL (1.5-7.6); Eosinophil % 1.4 %; Lymphocyte % 27.7 %
[2023-04-26 09:31] LABS: Vancomycin Trough 20.6 mcg/mL
[2023-04-26 09:39] LABS: .Transferrin 148 mg/dL (203-362); Iron < 20 ug/dL (50-212)
[2023-04-26 09:40] LABS: % Iron Saturation 10 % (15-55); Total Iron Binding Capacity 207 mcg/dL (250-450); Unsaturated Iron Binding 187 ug/dL
[2023-04-26] MEDS: Vancomycin 1,250 MG in NS 0.9% 250 ml 250 ML IVPB SCH (10:48)
[2023-04-26] MEDS: Polyethylene Glycol 3350 17 GM PACKET PO SCH ×2 (10:50→20:06)
[2023-04-26] MEDS: HYDROmorphone 1 MG/1 ML SYRINGE IV SLOW PU PRN ×2 (10:55→13:46)
[2023-04-26 11:59] LABS: Ferritin 118.5 ng/mL (11-307)
[2023-04-26] MEDS ORDERED: Vancomycin 1000 MG in NS 0.9% 250 ML IVPB SCH (12:00)
[2023-04-26] MEDS: Lidocaine PATCH 5% PATCH TRANSDERM SCH (13:22)
[2023-04-26] MEDS: Enoxaparin 40 MG/0.4 ML SYR SUBCUT SCH (13:31)
[2023-04-26] MEDS: Magnesium Hydroxide LIQ 30 ML UDC PO SCH ×2 (13:31→20:06)
[2023-04-26] MEDS ORDERED: Bupivacaine 0.5% SDV PF 30ML VIAL ONE (13:46)
[2023-04-26] MEDS ORDERED: Propofol 10 MG/ML 20 ML BTL ONE (15:05)
[2023-04-26] MEDS ORDERED: Lidocaine 2% PF 5 ML VIAL ONE (15:05)
[2023-04-26] MEDS ORDERED: Dexamethasone IV 4 MG/ML VIAL 1 ml VIAL ONE (15:05)
[2023-04-26] MEDS ORDERED: Ketamine HCL 50 mg/ml 10 ml VIAL (500 MG) ONE (15:05)
[2023-04-26] MEDS ORDERED: Succinylcholine 200 mg VIAL 20 mg/ml 10 ml VIAL (200 mg) ONE (15:05)
[2023-04-26] MEDS ORDERED: Midazolam 2 mg/2 ml VIAL 1 mg/ml 2 ml VIAL (2 mg) ONE (15:05)
[2023-04-26] MEDS ORDERED: Ondansetron 4 mg VIAL 2 MG/ML 2 ml VIAL ONE (15:05)
[2023-04-26] MEDS ORDERED: fentaNYL 100 mcg/2 ml 50 MCG/ML VIAL ONE ×3 (15:05→18:57)
[2023-04-26] MEDS ORDERED: HYDROmorphone 1 MG/1 ML SYRINGE IV PRN (15:26)
[2023-04-26] MEDS ORDERED: Ondansetron 4 mg VIAL 2 MG/ML 2 ml VIAL IV PRN (15:26)
[2023-04-26] MEDS ORDERED: Naloxone 0.4 mg VIAL 0.4 mg/ml 1 ml VIAL IV PRN (15:26)
[2023-04-26] MEDS: fentaNYL 100 mcg/2 ml 50 MCG/ML VIAL IV PRN ×4 (18:59→19:20)
[2023-04-26] MEDS ORDERED: HYDROmorphone 1 MG/1 ML SYRINGE ONE (19:33)
[2023-04-26] MEDS: Vancomycin 1000 MG in NS 0.9% 250 ML IVPB SCH (19:59)
[2023-04-26] MEDS: Lactated Ringers 1000 ml BAG 1,000 ML IV SCH (20:11)
[2023-04-27] MEDS: HYDROmorphone 1 MG/1 ML SYRINGE IV SLOW PU PRN ×5 (01:31→20:23)
[2023-04-27 02:19] LABS: Hematocrit 22.7 % (35-45); Hemoglobin 7.8 g/dL (11.5-14.3)
[2023-04-27] MEDS: Lactated Ringers 1000 ml BAG 1,000 ML IV SCH ×2 (03:00→20:32)
[2023-04-27] MEDS ORDERED: Iron Sucrose 200 MG in NS 0.9% 100 ml BAG 100 ML IVPB ONE (07:31)
[2023-04-27] MEDS: Vancomycin 1000 MG in NS 0.9% 250 ML IVPB SCH ×2 (08:37→17:30)
[2023-04-27] MEDS: Polyethylene Glycol 3350 17 GM PACKET PO SCH ×2 (08:53→20:35)
[2023-04-27] MEDS: Lidocaine PATCH 5% PATCH TRANSDERM SCH (08:53)
[2023-04-27] MEDS: Magnesium Hydroxide LIQ 30 ML UDC PO SCH ×2 (08:54→20:42)
[2023-04-27 13:14] LABS: Hematocrit 23.5 % (35-45); Hemoglobin 7.9 g/dL (11.5-14.3); Mean Corpuscular Hemoglobin 26.7 pg (27-33); Mean Corpuscular Hgb Conc 33.4 g/dL (31-36); Mean Corpuscular Volume 79.9 fL (80-97); Mean Platelet Volume 6.5 fL (7.5-11.2); Platelet Count 600 10^3/uL (150-450); Red Blood Count 2.94 10^6/uL (3.63-4.92); Red Cell Distribution Width 17.1 % (12-17); White Blood Count 7.7 10^3/uL (3.8-11.8)
[2023-04-27 13:29] LABS: Creatinine, Serum 0.91 mg/dL (0.51-0.95); Potassium 4.3 mmol/L (3.5-5.0); eGFR CKD-EPI 83.8 (>60)
[2023-04-27] MEDS: Enoxaparin 40 MG/0.4 ML SYR SUBCUT SCH (13:34)
[2023-04-27] MEDS ORDERED: Nystatin TOP POWDER 15 GM BTL TOPICAL SCH (14:00)
[2023-04-27] MEDS: Miconazole 2% Top Powder BTL TOPICAL SCH ×2 (17:30→20:38)
[2023-04-27] MEDS: Acetaminophen IV 1 GM/100ML 1,000 MG/100 ML BAG IV PRN (20:26)
[2023-04-28] MEDS ORDERED: Vancomycin Trough Check NOTE FOLLOW UP ONE (05:30)
[2023-04-28 06:37] LABS: ABS Basophils 0.1 10^3/uL (0.0-0.1); ABS Eosinophils 0.1 10^3/uL (0.0-0.5); ABS Lymphocytes 2.9 10^3/uL (1.0-4.8); ABS Monocytes 0.7 10^3/uL (0.0-0.9); ABS Nucleated RBC 0.01 10^3/ul; Hematocrit 21.9 % (35-45); Hemoglobin 7.4 g/dL (11.5-14.3); Lymphocyte % 37.9 %; Mean Corpuscular Hgb Conc 33.6 g/dL (31-36); Mean Corpuscular Volume 80.2 fL (80-97); Mean Platelet Volume 6.8 fL (7.5-11.2); Nucleated Red Blood Cells % 0.1 /100 WBC (0.0-0.4); Platelet Count 597 10^3/uL (150-450); Red Blood Count 2.73 10^6/uL (3.63-4.92); Red Cell Distribution Width 17.5 % (12-17); White Blood Count 7.8 10^3/uL (3.8-11.8)
[2023-04-28 06:49] LABS: Calcium 7.9 mg/dL (8.6-10.3); Creatinine, Serum 0.9 mg/dL (0.51-0.95); Magnesium 1.8 mg/dL (1.9-2.7); Potassium 4.3 mmol/L (3.5-5.0)
[2023-04-28] MEDS: HYDROmorphone 1 MG/1 ML SYRINGE IV SLOW PU PRN ×3 (08:00→21:06)
[2023-04-28 08:19] LABS: C Reactive Protein 57.47 mg/L (<8.01)
[2023-04-28] MEDS: Vancomycin 1000 MG in NS 0.9% 250 ML IVPB SCH ×2 (08:27→17:14)
[2023-04-28] MEDS: Lidocaine PATCH 5% PATCH TRANSDERM SCH (09:43)
[2023-04-28] MEDS: Magnesium Hydroxide LIQ 30 ML UDC PO SCH ×2 (09:52→21:32)
[2023-04-28] MEDS: Enoxaparin 40 MG/0.4 ML SYR SUBCUT SCH (09:53)
[2023-04-28] MEDS: Polyethylene Glycol 3350 17 GM PACKET PO SCH ×2 (09:56→21:32)
[2023-04-28] MEDS: Miconazole 2% Top Powder BTL TOPICAL SCH ×3 (12:08→22:18)
[2023-04-29] MEDS: HYDROmorphone 1 MG/1 ML SYRINGE IV SLOW PU PRN ×3 (00:08→12:12)
[2023-04-29] MEDS: Lactated Ringers 1000 ml BAG 1,000 ML IV SCH (00:22)
[2023-04-29] MEDS: Acetaminophen IV 1 GM/100ML 1,000 MG/100 ML BAG IV PRN (02:00)
[2023-04-29 07:18] LABS: ABS Basophils 0.1 10^3/uL (0.0-0.1); ABS Eosinophils 0.1 10^3/uL (0.0-0.5); ABS Lymphocytes 2.5 10^3/uL (1.0-4.8); ABS Monocytes 0.6 10^3/uL (0.0-0.9); ABS Neutrophils 3.8 10^3/uL (1.5-7.6); Eosinophil % 1.1 %; Hematocrit 21.5 % (35-45); Hemoglobin 7.2 g/dL (11.5-14.3); Lymphocyte % 35.9 %; Mean Corpuscular Hemoglobin 27.1 pg (27-33); Mean Corpuscular Hgb Conc 33.6 g/dL (31-36); Mean Corpuscular Volume 80.8 fL (80-97); Mean Platelet Volume 6.3 fL (7.5-11.2); Platelet Count 591 10^3/uL (150-450); Red Blood Count 2.66 10^6/uL (3.63-4.92); Red Cell Distribution Width 17.7 % (12-17)
[2023-04-29 07:28] LABS: Calcium 8.2 mg/dL (8.6-10.3); Creatinine, Serum 0.87 mg/dL (0.51-0.95); Magnesium 1.6 mg/dL (1.9-2.7); eGFR CKD-EPI 88.5 (>60)
[2023-04-29] MEDS: Polyethylene Glycol 3350 17 GM PACKET PO SCH ×3 (07:42→20:43)
[2023-04-29] MEDS: Magnesium Hydroxide LIQ 30 ML UDC PO SCH ×2 (07:43→20:40)
[2023-04-29] MEDS: Lidocaine PATCH 5% PATCH TRANSDERM SCH (07:47)
[2023-04-29] MEDS: Vancomycin 1000 MG in NS 0.9% 250 ML IVPB SCH ×2 (07:49→18:38)
[2023-04-29] MEDS: Miconazole 2% Top Powder BTL TOPICAL SCH ×3 (10:20→20:41)
[2023-04-29] MEDS: Enoxaparin 40 MG/0.4 ML SYR SUBCUT SCH (10:20)
[2023-04-29] MEDS ORDERED: HYDROmorphone 1 MG/1 ML SYRINGE IV SLOW PU PRN (16:31)
[2023-04-29] MEDS ORDERED: Benzocaine (DENTAL) 10% TOP.GEL TOPICAL PRN (16:57)
[2023-04-29] MEDS: Senna TAB 8.6 mg TAB PO PRN (20:40)
[2023-04-30] MEDS: Acetaminophen IV 1 GM/100ML 1,000 MG/100 ML BAG IV PRN ×3 (01:25→19:56)
[2023-04-30] MEDS: Vancomycin 1000 MG in NS 0.9% 250 ML IVPB SCH ×2 (06:19→21:43)
[2023-04-30 06:47] LABS: ABS Basophils 0.1 10^3/uL (0.0-0.1); ABS Eosinophils 0.1 10^3/uL (0.0-0.5); ABS Lymphocytes 3.1 10^3/uL (1.0-4.8); ABS Monocytes 0.6 10^3/uL (0.0-0.9); Eosinophil % 1.2 %; Hematocrit 23.6 % (35-45); Lymphocyte % 39.2 %; Mean Corpuscular Hemoglobin 27.3 pg (27-33); Mean Corpuscular Hgb Conc 33.8 g/dL (31-36); Mean Corpuscular Volume 80.7 fL (80-97); Mean Platelet Volume 6.3 fL (7.5-11.2); Platelet Count 730 10^3/uL (150-450); Red Blood Count 2.92 10^6/uL (3.63-4.92); Red Cell Distribution Width 18.2 % (12-17); White Blood Count 7.8 10^3/uL (3.8-11.8)
[2023-04-30 07:03] LABS: C Reactive Protein 46.38 mg/L (<8.01); Calcium 8.6 mg/dL (8.6-10.3); Creatinine, Serum 1.03 mg/dL (0.51-0.95); Potassium 4.5 mmol/L (3.5-5.0); eGFR CKD-EPI 72.3 (>60)
[2023-04-30] MEDS: Magnesium Hydroxide LIQ 30 ML UDC PO SCH (08:11)
[2023-04-30] MEDS: Polyethylene Glycol 3350 17 GM PACKET PO SCH ×2 (08:12→21:41)
[2023-04-30] MEDS: Miconazole 2% Top Powder BTL TOPICAL SCH ×3 (08:31→21:56)
[2023-04-30] MEDS: Lidocaine PATCH 5% PATCH TRANSDERM SCH (10:01)
[2023-04-30] MEDS: Enoxaparin 40 MG/0.4 ML SYR SUBCUT SCH (10:13)
[2023-04-30] MEDS: Senna TAB 8.6 mg TAB PO SCH ×2 (10:58→21:41)
[2023-04-30] MEDS ORDERED: Magnesium Sulf 4 GM/100 ML IV 4,000 MG/100 ML BAG IVPB ONE (12:44)
[2023-05-01] MEDS ORDERED: Vancomycin Trough Check NOTE FOLLOW UP ONE (05:30)
[2023-05-01 06:10] LABS: Calcium 8.4 mg/dL (8.6-10.3); Creatinine, Serum 1.12 mg/dL (0.51-0.95); Magnesium 2.6 mg/dL (1.9-2.7); eGFR CKD-EPI 65.4 (>60)
[2023-05-01] MEDS: Vancomycin 1000 MG in NS 0.9% 250 ML IVPB SCH (06:52)
[2023-05-01] MEDS: Senna TAB 8.6 mg TAB PO SCH (09:29)
[2023-05-01] MEDS: Polyethylene Glycol 3350 17 GM PACKET PO SCH (09:29)
[2023-05-01] MEDS: Lidocaine PATCH 5% PATCH TRANSDERM SCH (09:39)
[2023-05-01] MEDS: Miconazole 2% Top Powder BTL TOPICAL SCH (09:43)
[2023-05-01] MEDS: Enoxaparin 40 MG/0.4 ML SYR SUBCUT SCH (09:44)
[2023-05-01 10:41] VITALS: BP 137/69
[2023-05-01] MEDS ORDERED: Vancomycin 750 MG in NS 0.9% 250 ML IVPB SCH (12:00)
[2023-05-01] MEDS ORDERED: Acetaminophen IV 1 GM/100ML 1,000 MG/100 ML BAG IV ONE (17:29)
[2023-05-03] MEDS ORDERED: Vancomycin Trough Check NOTE FOLLOW UP ONE (11:30)
== END 2023-05-01 13:18 | disposition swing bed (61) | DRG 951 ==
LOC: ED 21:11 → EDHOLD 04-20 04:32 → SUATTDRO 04-20 04:32 → MEDTELE 04-20 16:37
PROVIDERS: ADMIT Student in an Organized Health Care Education/Training Program; ATTEND Hospitalist
PROC: O.CATEE (2023-04-22 14:15)

== ENCOUNTER 2023-05-01 13:19 | Inpatient (IN) ==
[2023-05-01] MEDS ORDERED: Naloxone Nasal Spray 4 MG/0.1 ML NASAL.SPR INTRANASAL PRN (14:54)
[2023-05-01] MEDS ORDERED: Lidocaine 4% TOPICAL 50 ML TOP.SOLN TOPICAL PRN (14:54)
[2023-05-01] MEDS ORDERED: HYDROmorphone 1 MG/1 ML SYRINGE IV SLOW PU PRN (14:54)
[2023-05-01] MEDS ORDERED: Vancomycin per Pharmacy 1 EA NOTE FOLLOW UP SCH (15:00)
[2023-05-01] MEDS ORDERED: Enoxaparin 40 MG/0.4 ML SYR SUBCUT SCH (15:00)
[2023-05-01] MEDS ORDERED: Benzocaine (DENTAL) 10% TOP.GEL TOPICAL PRN (15:39)
[2023-05-01] MEDS: Polyethylene Glycol 3350 17 GM PACKET PO SCH (21:35)
[2023-05-01] MEDS: Senna TAB 8.6 mg TAB PO SCH (21:37)
[2023-05-02] MEDS: Vancomycin 750 MG in NS 0.9% 250 ML IVPB SCH ×2 (01:00→14:04)
[2023-05-02 06:30] LABS: Calcium 8.8 mg/dL (8.6-10.3); Potassium 4.4 mmol/L (3.5-5.0)
[2023-05-02 06:35] LABS: Creatinine, Serum 0.96 mg/dL (0.51-0.95); eGFR CKD-EPI 78.6 (>60)
[2023-05-02] MEDS: Senna TAB 8.6 mg TAB PO SCH ×2 (09:29→19:56)
[2023-05-02] MEDS: Polyethylene Glycol 3350 17 GM PACKET PO SCH ×2 (09:32→19:54)
[2023-05-02] MEDS: Enoxaparin 40 MG/0.4 ML SYR SUBCUT SCH (09:32)
[2023-05-02] MEDS: Lidocaine PATCH 5% PATCH TRANSDERM SCH (09:33)
[2023-05-03] MEDS: Vancomycin 750 MG in NS 0.9% 250 ML IVPB SCH ×2 (01:25→14:16)
[2023-05-03] MEDS: Lidocaine PATCH 5% PATCH TRANSDERM SCH (08:24)
[2023-05-03] MEDS: Polyethylene Glycol 3350 17 GM PACKET PO SCH ×2 (08:24→21:05)
[2023-05-03] MEDS: Senna TAB 8.6 mg TAB PO SCH ×2 (08:38→20:38)
[2023-05-03] MEDS: Enoxaparin 40 MG/0.4 ML SYR SUBCUT SCH (11:53)
[2023-05-03] MEDS ORDERED: Vancomycin Trough Check NOTE FOLLOW UP ONE (12:30)
[2023-05-04] MEDS: Vancomycin 750 MG in NS 0.9% 250 ML IVPB SCH ×2 (01:36→15:26)
[2023-05-04] MEDS ORDERED: Vancomycin 1000 MG in NS 0.9% 250 ML IVPB SCH (03:00)
[2023-05-04] MEDS: Senna TAB 8.6 mg TAB PO SCH ×2 (08:44→20:57)
[2023-05-04] MEDS: Lidocaine PATCH 5% PATCH TRANSDERM SCH (08:47)
[2023-05-04] MEDS: Polyethylene Glycol 3350 17 GM PACKET PO SCH ×2 (08:48→21:13)
[2023-05-04] MEDS: Enoxaparin 40 MG/0.4 ML SYR SUBCUT SCH (11:14)
[2023-05-04] MEDS ORDERED: Vancomycin Trough Check NOTE FOLLOW UP ONE (12:30)
[2023-05-04 13:30] LABS: Creatinine, Serum 1.03 mg/dL (0.51-0.95); eGFR CKD-EPI 72.3 (>60)
[2023-05-04 14:27] LABS: Vancomycin Trough 12.8 mcg/mL
[2023-05-05] MEDS: Vancomycin 1000 MG in NS 0.9% 250 ML IVPB SCH ×2 (03:42→15:43)
[2023-05-05] MEDS: Lidocaine PATCH 5% PATCH TRANSDERM SCH (08:05)
[2023-05-05] MEDS: Polyethylene Glycol 3350 17 GM PACKET PO SCH ×2 (08:05→20:37)
[2023-05-05] MEDS: Senna TAB 8.6 mg TAB PO SCH ×2 (08:08→20:37)
[2023-05-05] MEDS: Enoxaparin 40 MG/0.4 ML SYR SUBCUT SCH (11:53)
[2023-05-06] MEDS: Vancomycin 1000 MG in NS 0.9% 250 ML IVPB SCH ×2 (03:59→16:56)
[2023-05-06] MEDS: Polyethylene Glycol 3350 17 GM PACKET PO SCH (07:55)
[2023-05-06] MEDS: Senna TAB 8.6 mg TAB PO SCH ×2 (07:56→20:00)
[2023-05-06] MEDS: Lidocaine PATCH 5% PATCH TRANSDERM SCH (08:01)
[2023-05-06 10:18] LABS: Rapid COVID-19 Molecular Undetected (Undetected)
[2023-05-06] MEDS: Enoxaparin 40 MG/0.4 ML SYR SUBCUT SCH (11:43)
[2023-05-06 13:22] LABS: Urine Appearance Cloudy; Urine Bilirubin Negative (Negative); Urine Blood 2+ (Negative); Urine Color Amber; Urine Glucose Negative (Negative); Urine Ketones Negative (Negative); Urine Nitrite Negative (Negative); Urine Protein 1+(30 mg/dL) (Negative); Urine Specific Gravity 1.017 (1.002-1.030); Urine Urobilinogen Positive (Negative)
[2023-05-06 13:36] LABS: Urine Bacteria 1+ (Absent); Urine Red Blood Cell 3+(>10/hpf) (Absent); Urine Squamous Epithelial Cell Present (Absent); Urine White Blood Cell 2+(11-20/hpf) (Absent)
[2023-05-06] MEDS ORDERED: Vancomycin Trough Check NOTE FOLLOW UP ONE (14:30)
[2023-05-07] MEDS: Polyethylene Glycol 3350 17 GM PACKET PO SCH ×3 (00:20→20:38)
[2023-05-07] MEDS: Vancomycin 1000 MG in NS 0.9% 250 ML IVPB SCH (05:32)
[2023-05-07 07:12] LABS: Creatinine, Serum 0.81 mg/dL (0.51-0.95); eGFR CKD-EPI 96.4 (>60)
[2023-05-07] MEDS: Senna TAB 8.6 mg TAB PO SCH ×2 (08:47→20:33)
[2023-05-07] MEDS: Lidocaine PATCH 5% PATCH TRANSDERM SCH (09:28)
[2023-05-07] MEDS: Enoxaparin 40 MG/0.4 ML SYR SUBCUT SCH (10:13)
[2023-05-07] MEDS ORDERED: Gadoteridol (CONTRAST) 279.3 MG/ML 10 ML IV ONE (15:40)
[2023-05-07] MEDS: Sulfamethox/Trimethoprim DS TAB 800/160 mg PO SCH (20:34)
[2023-05-07] MEDS ORDERED: Calcium Carb (TUMS) 500 mg CHEW TAB PO PRN (23:39)
[2023-05-08] MEDS: Senna TAB 8.6 mg TAB PO SCH ×2 (08:26→20:30)
[2023-05-08] MEDS: Lidocaine PATCH 5% PATCH TRANSDERM SCH (08:27)
[2023-05-08] MEDS: Sulfamethox/Trimethoprim DS TAB 800/160 mg PO SCH ×3 (08:28→20:23)
[2023-05-08] MEDS: Polyethylene Glycol 3350 17 GM PACKET PO SCH ×2 (08:28→20:30)
[2023-05-08] MEDS: Enoxaparin 40 MG/0.4 ML SYR SUBCUT SCH (11:54)
[2023-05-09] MEDS: Lidocaine PATCH 5% PATCH TRANSDERM SCH (08:01)
[2023-05-09 08:03] LABS: Hematocrit 23.5 % (35-45); Hemoglobin 7.8 g/dL (11.5-14.3); Mean Corpuscular Hemoglobin 27.4 pg (27-33); Mean Corpuscular Hgb Conc 33.1 g/dL (31-36); Mean Corpuscular Volume 82.9 fL (80-97); Platelet Count 319 10^3/uL (150-450); Red Blood Count 2.84 10^6/uL (3.63-4.92); Red Cell Distribution Width 19.8 % (12-17); White Blood Count 5.7 10^3/uL (3.8-11.8)
[2023-05-09] MEDS: Polyethylene Glycol 3350 17 GM PACKET PO SCH (08:21)
[2023-05-09] MEDS: Sulfamethox/Trimethoprim DS TAB 800/160 mg PO SCH (08:24)
[2023-05-09] MEDS: Senna TAB 8.6 mg TAB PO SCH (08:24)
[2023-05-09 08:31] LABS: Albumin 2.7 g/dL (3.2-5.2); Albumin/Globulin Ratio 0.5 (1-3); C Reactive Protein 16.53 mg/L (<8.01); Calcium 8.4 mg/dL (8.6-10.3); Creatinine, Serum 1.06 mg/dL (0.51-0.95); Globulin 5.5 g/dL (2-4); Potassium 4.3 mmol/L (3.5-5.0); Total Bilirubin 0.5 mg/dL (0.2-1.0); Total Protein 8.2 g/dL (6.4-8.9); eGFR CKD-EPI 69.8 (>60)
[2023-05-09 09:32] VITALS: BP 146/84
[2023-05-09 10:05] LABS: RBC Morphology Normal (Normal)
[2023-05-09 10:06] LABS: ABS Eosinophils 0.2 10^3/uL (0.0-0.5); ABS Lymphocytes 3.8 10^3/uL (1.0-4.8); ABS Monocytes 0.5 10^3/uL (0.0-0.9); ABS Neutrophils 1.2 10^3/uL (1.5-7.6); Eosinophil % 3.3 %; Lymphocyte % 66.6 %; Nucleated Red Blood Cells % 0.1 /100 WBC (0.0-0.4)
[2023-05-09] MEDS ORDERED: Vancomycin Trough Check NOTE FOLLOW UP ONE (14:30)
== END 2023-05-09 10:10 | DRG 383 ==
LOC: SUATTDRO 13:19 → MEDTELE 13:19
PROVIDERS: ADMIT Surgery; ATTEND Internal Medicine

== ENCOUNTER 2024-05-16 11:41 | Inpatient (IN) ==
[2024-05-16] MEDS ORDERED: LORazepam 2 mg VIAL 1 ml ONE (12:12)
[2024-05-16 12:21] LABS: ABS Eosinophils 0.3 10^3/uL (0.0-0.5); ABS Lymphocytes 0.7 10^3/uL (1.0-4.8); ABS Monocytes 0.5 10^3/uL (0.0-0.9); ABS Neutrophils 16.5 10^3/uL (1.5-7.6); ABS Nucleated RBC 0.01 10^3/ul; Eosinophil % 1.4 %; Hematocrit 26.1 % (35-45); Hemoglobin 8.6 g/dL (11.5-14.3); Lymphocyte % 3.8 %; Mean Corpuscular Hemoglobin 26.1 pg (27-33); Mean Corpuscular Volume 78.9 fL (80-97); Mean Platelet Volume 10.7 fL (7.5-11.2); Platelet Count 130 10^3/uL (150-450); Red Blood Count 3.31 10^6/uL (3.63-4.92); Red Cell Distribution Width 16.8 % (12-17)
[2024-05-16] MEDS ORDERED: Phenylephrine 40 mcg/mL 10mL (400mcg) SYRINGE ONE (12:24)
[2024-05-16] MEDS ORDERED: Propofol 10 mg/ml 100 ML BTL 1,000 MG/100 ML BTL ONE (12:24)
[2024-05-16] MEDS ORDERED: Propofol 10 MG/ML 20 ML BTL ONE (12:28)
[2024-05-16] MEDS ORDERED: Succinylcholine 200 mg VIAL 20 mg/ml 10 ml VIAL (200 mg) ONE (12:28)
[2024-05-16] MEDS ORDERED: Midazolam 10 mg/10 ml VIAL 1 mg/ml 10 ml VIAL (10 mg) ONE ×2 (12:28→12:39)
[2024-05-16] MEDS ORDERED: KETAMINE HCL 10 MG/ML 20 ml VIAL (200 MG) ONE (12:28)
[2024-05-16 12:30] LABS: Activated Partial Thrombo Time 25.8 seconds (26.0-38.0); INR 1.66 (0.85-1.14)
[2024-05-16] MEDS: Propofol 10 mg/ml 100 ML BTL 1,000 MG/100 ML BTL IV SCH (12:37)
[2024-05-16 12:46] LABS: High Sens Troponin Baseline 42 pg/mL (<15)
[2024-05-16] MEDS ORDERED: Sulfur Hexaflouride MICROSPHR 25 MG VIAL IV PRN (13:05)
[2024-05-16] MEDS: Cefepime 2 GM in Dextrose 2 GM/50 ML BAG IV ONE (13:16)
[2024-05-16] MEDS: metroNIDAZOLE IV 500 MG/100ML 500 MG/100 ML BAG IVPB ONE (13:16)
[2024-05-16 13:17] LABS: ALT 12 U/L (7-52); AST 24 U/L (13-39); Albumin 2.2 g/dL (3.2-5.2); Albumin/Globulin Ratio 0.4 (1-3); Alkaline Phosphatase 111 U/L (35-149); Anion Gap 14 mmol/L (2-16); Blood Urea Nitrogen 95 mg/dL (6-24); C Reactive Protein 254.66 mg/L (<8.01); CO2 Carbon Dioxide 20 mmol/L (22-32); Calcium 7.5 mg/dL (8.6-10.3); Chloride 100 mmol/L (101-111); Creatinine, Serum 2.22 mg/dL (0.51-0.95); Globulin 5.7 g/dL (2-4); Glucose 105 mg/dL (70-100); Potassium 4.1 mmol/L (3.5-5.0); Sodium 134 mmol/L (135-145); Total Bilirubin 1.7 mg/dL (0.2-1.0); Total Protein 7.9 g/dL (6.4-8.9); eGFR CKD-EPI 28.6 (>60)
[2024-05-16 13:33] LABS: HCG Pregnancy < 0.60 mIU/mL
[2024-05-16] MEDS: Vancomycin 1,500 MG in NS 0.9% 250 ml 250 ML IVPB ONE (14:14)
[2024-05-16 14:16] LABS: Urine Appearance Turbid; Urine Bilirubin Negative (Negative); Urine Blood 1+ (Negative); Urine Color Yellow; Urine Glucose Negative (Negative); Urine Ketones Negative (Negative); Urine Nitrite Negative (Negative); Urine Protein 1+ (>=30 mg/dL) (Negative); Urine Specific Gravity 1.016 (1.002-1.030); Urine Urobilinogen 1+ (Negative)
[2024-05-16 14:20] LABS: Urine Bacteria 3+ /HPF (Absent); Urine Red Blood Cell 2+(6-10/hpf) /HPF (0-Trace); Urine White Blood Cell 2+(11-20/hpf) /HPF (0-Trace)
[2024-05-16 14:22] LABS: High Sensitivity Troponin 1 Hr 47 pg/mL (<15)
[2024-05-16] MEDS: NORMOSOL R IV ONE (15:01)
[2024-05-16] MEDS: fentaNYL INFUSION 50 mcg/mL VL 2,500 MCG/50 ML VIAL IV SCH (15:48)
[2024-05-16] MEDS: Norepinephrine 4 MG/250mL D5W 4,000 MCG/250 ML BAG IV SCH (16:00)
[2024-05-16] MEDS: Chlorhexidine MOUTHWASH 0.12% 15 ML UDC TOPICAL SCH (16:04)
[2024-05-16] MEDS ORDERED: Vancomycin per Pharmacy 1 EA NOTE FOLLOW UP SCH (17:00)
[2024-05-16] MEDS: Norepinephrine 4 MG/250mL D5W 4,000 MCG/250 ML BAG IV ONE (17:07)
[2024-05-16 18:08] LABS: HIV 4th Generation Nonreactive (Nonreactive)
[2024-05-16 18:13] LABS: Urine Appearance Extra Turbid; Urine Bilirubin Negative (Negative); Urine Blood 1+ (Negative); Urine Color Yellow; Urine Glucose Negative (Negative); Urine Ketones Trace (Negative); Urine Nitrite Negative (Negative); Urine Protein 1+ (>=30 mg/dL) (Negative); Urine Specific Gravity 1.021 (1.002-1.030); Urine Urobilinogen 1+ (Negative)
[2024-05-16 18:36] LABS: Urine Benzodiazepine Screen Presumptive Positive (None Detect); Urine Cannabinoids Screen None Detected (None Detect); Urine Opiates Screen None Detected (None Detect)
[2024-05-16 18:59] LABS: Urine Bacteria 3+ /HPF (Absent); Urine Red Blood Cell 3+(>10/hpf) /HPF (0-Trace); Urine Squamous Epithelial Cell Present /HPF (Absent); Urine White Blood Cell 3+(>20/hpf) /HPF (0-Trace)
[2024-05-16] MEDS: Enoxaparin 40 MG/0.4 ML SYR SUBCUT SCH (20:08)
[2024-05-16] MEDS: Famotidine IV 10 MG/ML 2 ml VIAL (20 mg) IV SLOW PU SCH (20:08)
[2024-05-16] MEDS: metroNIDAZOLE IV 500 MG/100ML 100 ML IVPB SCH (20:35)
[2024-05-17] MEDS: CEFEPIME 2 GM in Dextrose 50 mL IV SCH (01:13)
[2024-05-17] MEDS: Midazolam PREMIXBAG 1 MG/ML NS 100 ML IV SCH (02:56)
[2024-05-17] MEDS: Vancomycin Random Level NOTE FOLLOW UP ONE (04:17)
[2024-05-17 04:48] LABS: Anion Gap 13 mmol/L (2-16); Blood Urea Nitrogen 98 mg/dL (6-24); CO2 Carbon Dioxide 22 mmol/L (22-32); Calcium 7.5 mg/dL (8.6-10.3); Chloride 100 mmol/L (101-111); Creatinine, Serum 2.33 mg/dL (0.51-0.95); Glucose 103 mg/dL (70-100); Magnesium 2.2 mg/dL (1.9-2.7); Potassium 4.4 mmol/L (3.5-5.0); Sodium 135 mmol/L (135-145); Vancomycin Random 20.2 mcg/mL
[2024-05-17 05:00] LABS: Hemoglobin 7.6 g/dL (11.5-14.3); Mean Corpuscular Hemoglobin 26.3 pg (27-33); Mean Corpuscular Hgb Conc 33.1 g/dL (31-36); Mean Corpuscular Volume 79.6 fL (80-97); Red Blood Count 2.89 10^6/uL (3.63-4.92); Red Cell Distribution Width 16.7 % (12-17); White Blood Count 18.7 10^3/uL (3.8-11.8)
[2024-05-17 05:34] LABS: PCO2 Arterial 40 mmHg (35-45); PO2 Arterial 138 mmHg (80-100); Resp Rate 18
[2024-05-17 05:45] LABS: ABS Eosinophils 0.2 10^3/uL (0.0-0.5); ABS Lymphocytes 0.9 10^3/uL (1.0-4.8); ABS Monocytes 0.5 10^3/uL (0.0-0.9); ABS Nucleated RBC 0.01 10^3/ul; Nucleated Red Blood Cells % 0.1 %/100WBC (0.0-0.8); Platelet Count 84 10^3/uL (150-450)
[2024-05-17 05:57] LABS: % Iron Saturation 11 % (15-55); .Transferrin 135 mg/dL (203-362); Iron < 20 ug/dL (50-212); Total Iron Binding Capacity 189 mcg/dL (250-450); Unsaturated Iron Binding 169 ug/dL
[2024-05-17 06:18] LABS: Ferritin 711.8 ng/mL (11-307)
[2024-05-17 06:22] LABS: Folate 6.96 ng/mL (5.90-24.80)
[2024-05-17 06:23] LABS: Vitamin B12 1047 pg/mL (180-914)
[2024-05-17 08:43] VITALS: BP 107/66
[2024-05-17] MEDS: Hydrocortisone INJ 100 MG/2ML 2 ML VIAL IV ONE (08:55)
[2024-05-17] MEDS: fentaNYL INFUSION 50 mcg/mL VL 2,500 MCG/50 ML VIAL IV SCH (09:42)
[2024-05-17] MEDS: Hydrocortisone INJ 100 MG/2ML 2 ML VIAL IV SCH (12:07)
[2024-05-17] MEDS: Midazolam 5 mg/5 ml VIAL 1 mg/ml 5 ml VIAL (5 mg) IV SLOW PU PRN (12:47)
[2024-05-17] MEDS: fentaNYL 100 mcg/2 ml 50 MCG/ML VIAL IV SLOW PU PRN (12:47)
[2024-05-18] MEDS ORDERED: Vancomycin Random Level NOTE FOLLOW UP ONE (06:00)
[2024-05-19 15:38] LABS: Hepatitis C Antibody Reactive (Negative)
== END 2024-05-17 14:52 | disposition short-term general hospital (02) | DRG 871 ==
LOC: ED 11:41 → EDHOLD 13:02 → ICU 14:55
PROVIDERS: ADMIT Student in an Organized Health Care Education/Training Program; ATTEND Student in an Organized Health Care Education/Training Program

== ENCOUNTER 2024-05-18 15:36 | Inpatient (IN) ==
[2024-05-18] MEDS: Propofol 10 mg/ml 100 ML BTL 1,000 MG/100 ML BTL IV SCH (20:00)
[2024-05-18] MEDS: Midazolam 5 mg/5 ml VIAL 1 mg/ml 5 ml VIAL (5 mg) IV SLOW PU ONE (20:15)
[2024-05-18] MEDS: Norepinephrine 4 MG/250mL D5W 4,000 MCG/250 ML BAG IV SCH (20:35)
[2024-05-18] MEDS: metroNIDAZOLE IV 500 MG/100ML 500 MG/100 ML BAG IVPB SCH (20:59)
[2024-05-18 21:00] LABS: Hemoglobin 7.2 g/dL (11.5-14.3); Mean Corpuscular Hemoglobin 26.1 pg (27-33); Mean Corpuscular Hgb Conc 32.7 g/dL (31-36); Mean Corpuscular Volume 79.9 fL (80-97); Platelet Count 127 10^3/uL (150-450); Red Blood Count 2.76 10^6/uL (3.63-4.92); Red Cell Distribution Width 17.1 % (12-17); White Blood Count 19.1 10^3/uL (3.8-11.8)
[2024-05-18] MEDS ORDERED: Norepinephrine 4 MG/250mL NS 4,000 MCG/250 ML BAG IV SCH (21:00)
[2024-05-18] MEDS ORDERED: Enoxaparin 40 MG/0.4 ML SYR SUBCUT SCH (21:00)
[2024-05-18] MEDS ORDERED: Vancomycin per Pharmacy 1 EA NOTE FOLLOW UP SCH (21:00)
[2024-05-18] MEDS: Cefepime 2 GM in Dextrose 2 GM/50 ML BAG IV SCH (21:09)
[2024-05-18 21:23] LABS: ABS Eosinophils 0.1 10^3/uL (0.0-0.5); ABS Lymphocytes 2.7 10^3/uL (1.0-4.8); ABS Monocytes 0.8 10^3/uL (0.0-0.9); ABS Neutrophils 15.4 10^3/uL (1.5-7.6); ABS Nucleated RBC 0.03 10^3/ul; Eosinophil % 0.5 %; Lymphocyte % 14.1 %; Nucleated Red Blood Cells % 0.1 %/100WBC (0.0-0.8)
[2024-05-18] MEDS: fentaNYL INFUSION 50 mcg/mL VL 2,500 MCG/50 ML VIAL IV SCH (21:38)
[2024-05-18 21:43] LABS: Albumin 2.1 g/dL (3.2-5.2); Albumin/Globulin Ratio 0.4 (1-3); Calcium 7.5 mg/dL (8.6-10.3); Creatinine, Serum 2.33 mg/dL (0.51-0.95); Globulin 5.3 g/dL (2-4); Magnesium 2.4 mg/dL (1.9-2.7); Phosphorus 7.8 mg/dL (2.5-5.0); Potassium 4.3 mmol/L (3.5-5.0); Total Bilirubin 0.8 mg/dL (0.2-1.0); Total Protein 7.4 g/dL (6.4-8.9)
[2024-05-18] MEDS: Chlorhexidine MOUTHWASH 0.12% 15 ML UDC TOPICAL SCH (21:50)
[2024-05-18] MEDS: Enoxaparin 40 MG/0.4 ML SYR SUBCUT SCH (21:50)
[2024-05-18] MEDS: Famotidine IV 10 MG/ML 2 ml VIAL (20 mg) IV SLOW PU SCH (21:50)
[2024-05-18] MEDS ORDERED: Senna TAB 8.6 mg TAB NG TUBE PRN (22:14)
[2024-05-19] MEDS: Acetaminophen IV 1 GM/100ML 1,000 MG/100 ML BAG IV PRN (03:23)
[2024-05-19 04:33] LABS: Hematocrit 23.4 % (35-45); Hemoglobin 7.6 g/dL (11.5-14.3); Mean Corpuscular Hemoglobin 25.7 pg (27-33); Mean Corpuscular Hgb Conc 32.6 g/dL (31-36); Mean Corpuscular Volume 78.9 fL (80-97); Mean Platelet Volume 9.8 fL (7.5-11.2); Platelet Count 146 10^3/uL (150-450); Red Blood Count 2.97 10^6/uL (3.63-4.92); Red Cell Distribution Width 17.1 % (12-17); White Blood Count 21.2 10^3/uL (3.8-11.8)
[2024-05-19 05:43] LABS: Albumin 2.2 g/dL (3.2-5.2); Albumin/Globulin Ratio 0.4 (1-3); Calcium 7.3 mg/dL (8.6-10.3); Creatinine, Serum 2.09 mg/dL (0.51-0.95); Globulin 5.5 g/dL (2-4); Magnesium 2.2 mg/dL (1.9-2.7); Phosphorus 6.6 mg/dL (2.5-5.0); Potassium 4.3 mmol/L (3.5-5.0); Total Bilirubin 0.9 mg/dL (0.2-1.0); Total Protein 7.7 g/dL (6.4-8.9); Vancomycin Trough 25.2 mcg/mL; eGFR CKD-EPI 30.7 (>60)
[2024-05-19 06:01] LABS: ABS Basophils 0.1 10^3/uL (0.0-0.1); ABS Eosinophils 0.1 10^3/uL (0.0-0.5); ABS Monocytes 0.7 10^3/uL (0.0-0.9); ABS Neutrophils 18.2 10^3/uL (1.5-7.6); ABS Nucleated RBC 0.03 10^3/ul; Eosinophil % 0.4 %; Lymphocyte % 9.5 %; Nucleated Red Blood Cells % 0.1 %/100WBC (0.0-0.8)
[2024-05-19] MEDS: Midazolam 5 mg/5 ml VIAL 1 mg/ml 5 ml VIAL (5 mg) IV SLOW PU PRN (06:10)
[2024-05-19] MEDS ORDERED: Sulfur Hexaflouride MICROSPHR 25 MG VIAL IV PRN (08:17)
[2024-05-19] MEDS: Polyethylene Glycol 3350 17 GM PACKET NG TUBE SCH (08:21)
[2024-05-19] MEDS: Vancomycin Random Level NOTE FOLLOW UP ONE (08:24)
[2024-05-19 10:04] LABS: Albumin 2.1 g/dL (3.2-5.2); Albumin/Globulin Ratio 0.4 (1-3); Calcium 7.5 mg/dL (8.6-10.3); Creatinine, Serum 2.2 mg/dL (0.51-0.95); Globulin 5.5 g/dL (2-4); Magnesium 2.3 mg/dL (1.9-2.7); Phosphorus 7.5 mg/dL (2.5-5.0); Potassium 4.5 mmol/L (3.5-5.0); Total Protein 7.6 g/dL (6.4-8.9); eGFR CKD-EPI 28.9 (>60)
[2024-05-19 14:24] LABS: Erythrocyte Sed Rate > 120 mm/Hr (0-19)
[2024-05-19 18:51] LABS: Hematocrit 23.7 % (35-45); Hemoglobin 7.5 g/dL (11.5-14.3); Mean Corpuscular Hemoglobin 25.4 pg (27-33); Mean Corpuscular Hgb Conc 31.6 g/dL (31-36); Mean Corpuscular Volume 80.6 fL (80-97); Mean Platelet Volume 9.7 fL (7.5-11.2); Platelet Count 149 10^3/uL (150-450); Red Blood Count 2.94 10^6/uL (3.63-4.92); Red Cell Distribution Width 17.3 % (12-17)
[2024-05-19 19:22] LABS: ABS Eosinophils 0.1 10^3/uL (0.0-0.5); ABS Lymphocytes 2.2 10^3/uL (1.0-4.8); ABS Monocytes 0.9 10^3/uL (0.0-0.9); ABS Neutrophils 18.8 10^3/uL (1.5-7.6); ABS Nucleated RBC 0.05 10^3/ul; Eosinophil % 0.3 %; Nucleated Red Blood Cells % 0.2 %/100WBC (0.0-0.8)
[2024-05-20 04:29] LABS: ABS Basophils 0.1 10^3/uL (0.0-0.1); ABS Eosinophils 0.1 10^3/uL (0.0-0.5); ABS Lymphocytes 2.1 10^3/uL (1.0-4.8); ABS Monocytes 0.8 10^3/uL (0.0-0.9); ABS Neutrophils 19.7 10^3/uL (1.5-7.6); ABS Nucleated RBC 0.03 10^3/ul; Eosinophil % 0.3 %; Hematocrit 21.9 % (35-45); Hemoglobin 7.1 g/dL (11.5-14.3); Lymphocyte % 9.3 %; Mean Corpuscular Hemoglobin 25.7 pg (27-33); Mean Corpuscular Hgb Conc 32.4 g/dL (31-36); Mean Corpuscular Volume 79.5 fL (80-97); Mean Platelet Volume 9.3 fL (7.5-11.2); Nucleated Red Blood Cells % 0.1 %/100WBC (0.0-0.8); Platelet Count 159 10^3/uL (150-450); Red Blood Count 2.76 10^6/uL (3.63-4.92); Red Cell Distribution Width 17.3 % (12-17); White Blood Count 22.8 10^3/uL (3.8-11.8)
[2024-05-20 05:31] LABS: Albumin/Globulin Ratio 0.4 (1-3); Calcium 7.6 mg/dL (8.6-10.3); Creatinine, Serum 2.1 mg/dL (0.51-0.95); Globulin 5.4 g/dL (2-4); Magnesium 2.4 mg/dL (1.9-2.7); Phosphorus 7.1 mg/dL (2.5-5.0); Potassium 4.6 mmol/L (3.5-5.0); Total Bilirubin 0.9 mg/dL (0.2-1.0); Total Protein 7.4 g/dL (6.4-8.9); eGFR CKD-EPI 30.5 (>60)
[2024-05-20] MEDS: Vancomycin Random Level NOTE FOLLOW UP ONE (08:31)
[2024-05-20 08:47] LABS: HDL Cholesterol 6.2 mg/dL
[2024-05-20] MEDS: Albumin Human 5% 12.5 GM/250 ML BTL IV ONE (10:06)
[2024-05-20] MEDS: levETIRAcetam IV 1,500 MG in NS 0.9% 100 ml BAG 100 ML IVPB SCH (10:58)
[2024-05-20] MEDS ORDERED: Midazolam 5 mg/5 ml VIAL 1 mg/ml 5 ml VIAL (5 mg) IV SLOW PU PRN (12:02)
[2024-05-20] MEDS: levETIRAcetam IV 1,500 MG in NS 0.9% 100 ml BAG 100 ML IVPB ONE (12:05)
[2024-05-20] MEDS: fentaNYL 100 mcg/2 ml 50 MCG/ML VIAL IV SLOW PU ONE (12:18)
[2024-05-20] MEDS: CEFTAROLINE IVPB SCH (13:23)
[2024-05-20] MEDS: NS 0.9% IVPB SCH (13:23)
[2024-05-20] MEDS ORDERED: DAPTOMYCIN IVPB SCH (13:30)
[2024-05-20] MEDS: fentaNYL 100 mcg/2 ml 50 MCG/ML VIAL IV SLOW PU PRN (13:46)
[2024-05-20] MEDS: fentaNYL 100 mcg/2 ml 50 MCG/ML VIAL ONE (14:07)
[2024-05-20] MEDS: DAPTOmycin SDV 750 MG in NS 0.9% 50 ML 50 ML IVPB SCH (14:28)
[2024-05-20] MEDS ORDERED: levETIRAcetam IV 1,500 MG in NS 0.9% 100 ml BAG 100 ML IVPB ONE ×3 (22:00)
[2024-05-20 23:44] LABS: Body Fluid Source Cerebral Spinal
[2024-05-20 23:57] LABS: Body Fluid Appearance Cloudy; Body Fluid Color Pink; CSF Tube # 4
[2024-05-21] MEDS: levETIRAcetam IV 750 MG in NS 0.9% 100 ML IVPB SCH (00:46)
[2024-05-21 00:58] LABS: CSF Glucose 89 mg/dL (40-70)
[2024-05-21 01:58] LABS: Body Fluid Mono 8 %; Body Fluid NRBC 2; Body Fluid Total Cells Counted 200
[2024-05-21 02:00] LABS: CSF Body Fluid WBC 56 /mcL
[2024-05-21 04:51] LABS: ABS Monocytes 0.7 10^3/uL (0.0-0.9); ABS Neutrophils 19.5 10^3/uL (1.5-7.6); ABS Nucleated RBC 0.04 10^3/ul; Hematocrit 20.7 % (35-45); Hemoglobin 6.5 g/dL (11.5-14.3); Lymphocyte % 9.1 %; Mean Corpuscular Hemoglobin 25.5 pg (27-33); Mean Corpuscular Hgb Conc 31.3 g/dL (31-36); Mean Corpuscular Volume 81.5 fL (80-97); Mean Platelet Volume 9.5 fL (7.5-11.2); Nucleated Red Blood Cells % 0.2 %/100WBC (0.0-0.8); Platelet Count 168 10^3/uL (150-450); Red Blood Count 2.55 10^6/uL (3.63-4.92); Red Cell Distribution Width 16.8 % (12-17); White Blood Count 22.3 10^3/uL (3.8-11.8)
[2024-05-21 05:30] LABS: Albumin 2.1 g/dL (3.2-5.2); Albumin/Globulin Ratio 0.4 (1-3); Calcium 7.6 mg/dL (8.6-10.3); Globulin 5.5 g/dL (2-4); Magnesium 2.5 mg/dL (1.9-2.7); Phosphorus 8.7 mg/dL (2.5-5.0); Potassium 4.3 mmol/L (3.5-5.0); Total Bilirubin 1.2 mg/dL (0.2-1.0); Total Protein 7.6 g/dL (6.4-8.9); eGFR CKD-EPI 32.4 (>60)
[2024-05-21] MEDS: Famotidine IV 10 MG/ML 2 ml VIAL (20 mg) IV SLOW PU SCH (08:18)
[2024-05-21] MEDS ORDERED: levETIRAcetam IV 1,500 MG in NS 0.9% 100 ml BAG 100 ML IVPB SCH (10:00)
[2024-05-21] MEDS: DAPTOmycin SDV 750 MG in NS 0.9% 50 ML 50 ML IVPB SCH (15:52)
[2024-05-21] MEDS: niCARdipine 0.1MG/ML IVPREMIX 20 MG/200 ML BAG IV SCH (17:53)
[2024-05-22 04:32] LABS: ABS Lymphocytes 2.2 10^3/uL (1.0-4.8); ABS Monocytes 0.9 10^3/uL (0.0-0.9); ABS Neutrophils 18.9 10^3/uL (1.5-7.6); ABS Nucleated RBC 0.04 10^3/ul; Hematocrit 22.7 % (35-45); Hemoglobin 7.2 g/dL (11.5-14.3); Lymphocyte % 9.9 %; Mean Corpuscular Hemoglobin 26.7 pg (27-33); Mean Corpuscular Hgb Conc 31.8 g/dL (31-36); Mean Corpuscular Volume 84.1 fL (80-97); Mean Platelet Volume 9.8 fL (7.5-11.2); Nucleated Red Blood Cells % 0.2 %/100WBC (0.0-0.8); Platelet Count 183 10^3/uL (150-450); Red Blood Count 2.69 10^6/uL (3.63-4.92); Red Cell Distribution Width 17.4 % (12-17)
[2024-05-22 04:53] LABS: Albumin/Globulin Ratio 0.4 (1-3); Calcium 7.5 mg/dL (8.6-10.3); Creatinine, Serum 2.15 mg/dL (0.51-0.95); Globulin 5.2 g/dL (2-4); Magnesium 2.2 mg/dL (1.9-2.7); Phosphorus 6.4 mg/dL (2.5-5.0); Potassium 3.6 mmol/L (3.5-5.0); Total Bilirubin 1.2 mg/dL (0.2-1.0); Total Protein 7.2 g/dL (6.4-8.9); eGFR CKD-EPI 29.7 (>60)
[2024-05-22] MEDS: cloNIDine 0.1 MG PATCH 0.1 MG/24 HR 7 DAY PATCH TRANSDERM SCH (09:42)
[2024-05-22] MEDS: Midazolam 5 mg/5 ml VIAL 1 mg/ml 5 ml VIAL (5 mg) IV SLOW PU ONE (13:20)
[2024-05-22] MEDS: fentaNYL 100 mcg/2 ml 50 MCG/ML VIAL IV SLOW PU ONE (13:20)
[2024-05-22] MEDS ORDERED: Midazolam 2 mg/2 ml VIAL 1 mg/ml 2 ml VIAL (2 mg) IV SLOW PU PRN (17:40)
[2024-05-22 18:03] LABS: Calcium 7.9 mg/dL (8.6-10.3); Creatinine, Serum 1.93 mg/dL (0.51-0.95); Potassium 3.8 mmol/L (3.5-5.0); eGFR CKD-EPI 33.8 (>60)
[2024-05-23 04:23] LABS: ABS Lymphocytes 1.3 10^3/uL (1.0-4.8); ABS Monocytes 0.7 10^3/uL (0.0-0.9); ABS Neutrophils 18.5 10^3/uL (1.5-7.6); ABS Nucleated RBC 0.06 10^3/ul; Hematocrit 21.4 % (35-45); Hemoglobin 6.6 g/dL (11.5-14.3); Lymphocyte % 6.5 %; Mean Corpuscular Hemoglobin 26.8 pg (27-33); Mean Corpuscular Hgb Conc 30.9 g/dL (31-36); Mean Corpuscular Volume 86.7 fL (80-97); Mean Platelet Volume 10.1 fL (7.5-11.2); Nucleated Red Blood Cells % 0.3 %/100WBC (0.0-0.8); Platelet Count 201 10^3/uL (150-450); Red Blood Count 2.46 10^6/uL (3.63-4.92); Red Cell Distribution Width 17.9 % (12-17); White Blood Count 20.6 10^3/uL (3.8-11.8)
[2024-05-23 05:02] LABS: Albumin 2.1 g/dL (3.2-5.2); Albumin/Globulin Ratio 0.4 (1-3); Calcium 7.6 mg/dL (8.6-10.3); Creatinine, Serum 1.84 mg/dL (0.51-0.95); Globulin 5.2 g/dL (2-4); Magnesium 1.9 mg/dL (1.9-2.7); Phosphorus 3.9 mg/dL (2.5-5.0); Potassium 3.5 mmol/L (3.5-5.0); Total Bilirubin 1.1 mg/dL (0.2-1.0); Total Protein 7.3 g/dL (6.4-8.9); eGFR CKD-EPI 35.8 (>60)
[2024-05-23] MEDS ORDERED: NS 0.45% KCl 20 Meq 1000 ml 1,000 ML IV SCH (10:00)
[2024-05-23] MEDS: Furosemide 40 mg/4 ml IV VIAL IV SLOW PU ONE (10:11)
[2024-05-23] MEDS: Potassium EFFERVES 25 meq TAB ONE (10:11)
[2024-05-23 10:39] LABS: Hematocrit 26.9 % (35-45); Hemoglobin 8.6 g/dL (11.5-14.3)
[2024-05-23] MEDS: Gadoteridol (CONTRAST) 279.3 MG/ML 10 ML IV ONE (12:41)
[2024-05-23 14:34] LABS: Platelet Count 180 10^3/ul (150-450)
[2024-05-23 14:38] VITALS: BP 125/95
[2024-05-23 15:00] LABS: Calcium 7.6 mg/dL (8.6-10.3); Creatinine, Serum 1.8 mg/dL (0.51-0.95); Potassium 4.2 mmol/L (3.5-5.0); eGFR CKD-EPI 36.8 (>60)
[2024-05-23 15:34] LABS: Activated Partial Thrombo Time 28.6 seconds (26.0-38.0)
[2024-05-23] MEDS: D5W 1000 ml BAG 1,000 ML IV SCH (15:52)
[2024-05-23 15:55] LABS: Schistocytes ABSENT
[2024-05-23 20:43] LABS: Calcium 7.5 mg/dL (8.6-10.3); Creatinine, Serum 1.8 mg/dL (0.51-0.95); Potassium 3.9 mmol/L (3.5-5.0); eGFR CKD-EPI 36.8 (>60)
[2024-05-24] MEDS: fentaNYL 100 mcg/2 ml 50 MCG/ML VIAL IV SLOW PU PRN (01:20)
[2024-05-24] MEDS: D5W 1000 ml BAG 1,000 ML IV SCH ×3 (03:00→17:16)
[2024-05-24 05:01] LABS: ABS Lymphocytes 1.5 10^3/uL (1.0-4.8); ABS Monocytes 0.6 10^3/uL (0.0-0.9); ABS Neutrophils 19.1 10^3/uL (1.5-7.6); ABS Nucleated RBC 0.02 10^3/ul; Hematocrit 22.9 % (35-45); Hemoglobin 7.4 g/dL (11.5-14.3); Lymphocyte % 7.1 %; Mean Corpuscular Hemoglobin 28.3 pg (27-33); Mean Corpuscular Hgb Conc 32.1 g/dL (31-36); Mean Corpuscular Volume 88.1 fL (80-97); Mean Platelet Volume 10.1 fL (7.5-11.2); Nucleated Red Blood Cells % 0.1 %/100WBC (0.0-0.8); Platelet Count 152 10^3/uL (150-450); Red Cell Distribution Width 17.8 % (12-17); White Blood Count 21.2 10^3/uL (3.8-11.8)
[2024-05-24 05:34] LABS: Albumin 2.1 g/dL (3.2-5.2); Albumin/Globulin Ratio 0.5 (1-3); Calcium 7.6 mg/dL (8.6-10.3); Creatinine, Serum 1.6 mg/dL (0.51-0.95); Globulin 4.6 g/dL (2-4); Magnesium 1.6 mg/dL (1.9-2.7); Phosphorus 3.8 mg/dL (2.5-5.0); Potassium 3.6 mmol/L (3.5-5.0); Total Bilirubin 1.5 mg/dL (0.2-1.0); Total Protein 6.7 g/dL (6.4-8.9); eGFR CKD-EPI 42.3 (>60)
[2024-05-24] MEDS: KCL 20 MEQ/100 ML IVPREMIX 20 MEQ/100 ML BAG IV SCH (06:22)
[2024-05-24] MEDS: Magnesium Sulf 4 GM/100 ML IV 4,000 MG/100 ML BAG IVPB ONE (07:50)
[2024-05-24 08:42] LABS: Urine Osmo 551 mOsm/kg (150-1150)
[2024-05-24 08:44] LABS: Osmolality Serum 360 mOsm/kg (275-295)
[2024-05-24 14:43] LABS: Calcium 7.6 mg/dL (8.6-10.3); Creatinine, Serum 1.34 mg/dL (0.51-0.95); Potassium 3.4 mmol/L (3.5-5.0); eGFR CKD-EPI 52.4 (>60)
[2024-05-24] MEDS: Midazolam 2 mg/2 ml VIAL 1 mg/ml 2 ml VIAL (2 mg) IV SLOW PU ONE (15:55)
[2024-05-24 16:22] LABS: Calcium 7.6 mg/dL (8.6-10.3); Creatinine, Serum 1.28 mg/dL (0.51-0.95); Potassium 3.5 mmol/L (3.5-5.0); eGFR CKD-EPI 55.3 (>60)
[2024-05-24] MEDS: Midazolam 2 mg/2 ml VIAL 1 mg/ml 2 ml VIAL (2 mg) ONE (17:05)
[2024-05-24] MEDS: Iodixanol (CONTRAST) 320 MG/ML 100 ML SDV IV ONE ×2 (17:15→20:01)
[2024-05-24 21:21] LABS: Calcium 7.8 mg/dL (8.6-10.3); Creatinine, Serum 1.21 mg/dL (0.51-0.95); Potassium 3.2 mmol/L (3.5-5.0); eGFR CKD-EPI 59.2 (>60)
[2024-05-24] MEDS: CEFTAROLINE IVPB SCH (23:57)
[2024-05-24] MEDS: D5W IVPB SCH (23:57)
[2024-05-25] MEDS: Potassium Chloride LIQUID 20 MEQ/15 ML LIQUID PO ONE ×2 (00:28→07:53)
[2024-05-25] MEDS: CEFTAROLINE IVPB SCH (00:52)
[2024-05-25] MEDS: D5W IVPB SCH (00:52)
[2024-05-25] MEDS: Furosemide 40 mg/4 ml IV VIAL IV ONE (01:24)
[2024-05-25] MEDS: Morphine 10 MG/ML VIAL (1 ml) IV ONE (01:24)
[2024-05-25 05:03] LABS: Hematocrit 23.5 % (35-45); Hemoglobin 7.4 g/dL (11.5-14.3); Mean Corpuscular Hgb Conc 31.6 g/dL (31-36); Mean Corpuscular Volume 88.7 fL (80-97); Mean Platelet Volume 10.2 fL (7.5-11.2); Platelet Count 169 10^3/uL (150-450); Red Blood Count 2.65 10^6/uL (3.63-4.92); Red Cell Distribution Width 19.4 % (12-17); White Blood Count 22.3 10^3/uL (3.8-11.8)
[2024-05-25 05:22] LABS: ABS Eosinophils 0.1 10^3/uL (0.0-0.5); ABS Lymphocytes 1.4 10^3/uL (1.0-4.8); ABS Monocytes 0.5 10^3/uL (0.0-0.9); ABS Neutrophils 20.3 10^3/uL (1.5-7.6); ABS Nucleated RBC 0.02 10^3/ul; Eosinophil % 0.3 %; Lymphocyte % 6.3 %; Nucleated Red Blood Cells % 0.1 %/100WBC (0.0-0.8)
[2024-05-25 05:58] LABS: Calcium 7.8 mg/dL (8.6-10.3); Creatinine, Serum 1.12 mg/dL (0.51-0.95); Magnesium 1.6 mg/dL (1.9-2.7); Potassium 3.3 mmol/L (3.5-5.0)
[2024-05-25] MEDS: Magnesium Sulfate 2 gm BAG 2 GM/50 ML BAG IVPB ONE (07:54)
[2024-05-25] MEDS: D5W 1000 ml BAG 1,000 ML IV SCH ×2 (07:55→13:58)
[2024-05-25 10:47] LABS: Calcium 7.7 mg/dL (8.6-10.3); Creatinine, Serum 1.08 mg/dL (0.51-0.95); Potassium 3.1 mmol/L (3.5-5.0); eGFR CKD-EPI 67.8 (>60)
[2024-05-25] MEDS: Propofol 10 mg/ml 100 ML BTL 1,000 MG/100 ML BTL IV SCH (11:00)
[2024-05-25] MEDS: Midazolam 10 mg/10 ml VIAL 1 mg/ml 10 ml VIAL (10 mg) IV SLOW PU PRN (11:20)
[2024-05-25] MEDS ORDERED: fentaNYL 100 mcg/2 ml 50 MCG/ML VIAL IV SLOW PU PRN (11:29)
[2024-05-25] MEDS: Rocuronium 50 mg VIAL 10 mg/ml 5 ml VIAL (50 mg) IV ONE (11:30)
[2024-05-25] MEDS: Gadoteridol (CONTRAST) 279.3 MG/ML 10 ML IV ONE (13:09)
[2024-05-25] MEDS: fentaNYL 100 mcg/2 ml 50 MCG/ML VIAL IV SLOW PU ONE (13:57)
[2024-05-25] MEDS: Norepinephrine 4 MG/250mL D5W 4,000 MCG/250 ML BAG IV SCH (13:59)
[2024-05-25] MEDS: Norepinephrine 4 MG/250mL D5W 4,000 MCG/250 ML BAG IV ONE (14:00)
[2024-05-25] MEDS: Phenylephrine 40 mcg/mL 10mL (400mcg) SYRINGE ONE (14:09)
[2024-05-25] MEDS ORDERED: Phenylephrine 40 mcg/mL 10mL (400mcg) SYRINGE IV PUSH ONE (16:43)
== END 2024-05-25 15:35 | disposition short-term general hospital (02) | DRG 870 ==
LOC: ICU 20:18
PROVIDERS: ADMIT Internal Medicine Critical Care Medicine; ATTEND Internal Medicine Critical Care Medicine